=== PATIENT | male | born 1940 | race Caucasian/White ===

== ENCOUNTER 2020-01-20 16:15 | Outpatient (CLI) | payer MEDICARE, SELFPAY ==
[2020-01-20 16:35] LABS: Add Urine Microscopic? YES; Appearance Urine Clear (Clear); Basophils Absolute Auto 0.12 K/mm3 (0.00-0.10); Basophils Percent Auto 1.2 % (0.0-1.0); Bilirubin Urine Negative (Negative); Blood Urine Negative (Negative); Color Urine Amber (Yellow); Eosinophils Absolute Auto 0.48 K/mm3 (0.02-0.50); Glucose Urine UA Negative (Negative); Hematocrit 42.8 % (37.0-46.0); Immature Granulocyte Absolute 0.12 K/mm3 (0.00-0.00); Immature Granulocyte Percent A 1.2 % (0.0-0.0); Ketones Urine Trace (Negative); Leukocyte Esterase Ur Negative (Negative); Lymphocytes Absolute Auto 2.11 K/mm3 (1.10-4.50); Lymphocytes Percent Auto 21.9 % (18.0-42.0); Mean Corpuscular HGB Conc 32.7 g/dL (32.0-36.0); Mean Corpuscular Hemoglobin 29.8 pg (27.0-31.0); Mean Corpuscular Volume 91.1 fL (78.0-102.0); Mean Platelet Volume 9.9 fl (8.7-11.0); Monocytes Absolute Auto 0.96 K/mm3 (0.10-0.90); Neutrophils Absolute Auto 5.8 K/mm3 (1.7-7.2); Neutrophils Percent Auto 60.7 % (50.0-70.0); Nitrate Urine Negative (Negative); Platelet Count Result 252 K/mm3 (150-420); Protein Urine Negative (Negative); Red Cell Distribution Width 14.4 % (11.6-14.4); Specific Grav Ur 1.025 (1.010-1.020); Urobilinogen Urine 0.2 mg/dL (0.2-1.0); White Blood Count 9.6 K/mm3 (4.8-10.8); pH Urine 5.5 (5.0-8.0)
[2020-01-20 16:39] LABS: Bacteria Urine Trace /hpf; RBC Urine None seen /hpf (0-2); Squamous Epithelial Cell Urine Few /hpf (Few); WBC Urine None seen /hpf (0-3)
[2020-01-20 16:53] LABS: Hemoglobin A1C 7.8 % (<5.7)
--- NOTE | 2020-01-20 16:55 | ECG_ITS ---
Measurements Intervals [place] Rate: 59 P: 30 CO: 193 QRS: 46 QRSD: 162 T: 66 QT: 470 QTc: 468 Interpretive Statements SINUS BRADYCARDIA RIGHT BUNDLE BRANCH BLOCK ABNORMAL ECG Electronically Signed On 01-20-2020 18:30:48 CDT by Jaun Jackson D.O.
[2020-01-20 17:15] LABS: Alanine Aminotransferase 53 U/L (16-63); Albumin Level 3.8 g/dL (3.4-5.0); Alkaline Phosphatase 72 U/L (46-116); Anion Gap 9 mmol/L (8-16); Aspartate Amino Transferase 23 U/L (15-37); Bilirubin,Total 0.4 mg/dL (0.00-1.00); Blood Urea Nitrogen 35 mg/dL (7-18); Calcium 9.9 mg/dL (8.5-10.1); Carbon Dioxide 30 mmol/L (21-32); Chloride 101 mmol/L (98-108); Estimated Glomerular Filt Rate 41; Glucose 103 mg/dL (70-99); Osmolality Calculated 298 mOsm/kg (285-295); Potassium 4.6 mmol/L (3.5-5.1); Sodium 140 mmol/L (136-145); Total Protein 7.9 g/dL (6.4-8.2)
== END 2020-01-20 16:16 | disposition home or self-care (01) ==
LOC: CHSCARD 16:18
PROVIDERS: PCP Internal Medicine; Visit Provider Internal Medicine
DX: H54.7 Unspecified visual loss (principal); E11.9 Type 2 diabetes mellitus without complications
CPT/HCPCS: 36415; 80053; 81001; 83036; 85025; 93005

== ENCOUNTER 2020-01-23 14:09 | Outpatient (CLI) | payer MEDICARE, SELFPAY ==
--- NOTE | ~2020-01-23 | US_ITS ---
EXAMINATION: US carotid duplex BI DATE: 01/23/2020 16:35 INDICATION: Bilateral vision loss TECHNIQUE: Grayscale, color Doppler, and pulsed Doppler images of the cervical carotid arteries were obtained. The degree of vessel stenosis is placed in one of the following categories: normal, <50%, 5 0-69%, >=70% but less than near-occlusion, near-occlusion, or total occlusion. Note that percent sten osis relative to normal distal artery lumen diameter is indirectly measured from velocity measurement s as described by Maurice, et al. Radiology 2003; 229:340-346. COMPARISON: None. FINDINGS: Cardiac arrhythmia is present. RIGHT: The right common carotid artery (CCA) peak systolic velocity (PSV) is 67 cm/s. The right internal car otid artery (ICA) PSV is 99 cm/s. The right ICA end-diastolic velocity (EDV) is 35 cm/s. The right IC A/CCA PSV ratio is 1.5. Grayscale and color Doppler images yield an estimate of <50% diameter reducti on from plaque in the ICA. The external carotid artery (ECA) PSV is 102 cm/s. There is antegrade flow in the right vertebral artery. LEFT: The left CCA PSV is 41 cm/s. The left ICA PSV is 96 cm/s. The left ICA EDV is 27 cm/s. The left ICA/C CA PSV ratio is 2.3. Grayscale and color Doppler images yield an estimate of <50% diameter reduction from plaque in the ICA. The ECA PSV is 86 cm/s. There is antegrade flow in the left vertebral artery. IMPRESSION: 1. <50% stenosis in the right internal carotid artery. 2. <50% stenosis in the left internal carotid artery. 3. Cardiac arrhythmia is present. Reviewed, dictated and finalized at location A.
--- NOTE | 2020-01-23 14:15 | ECHO_ITS ---
Patient Info Name: Richie Garcia Age: 79 years : 1940 Gender: Male Ht: 73 in Wt: 250 lbs BSA: 2.45 m2 HR: 63 bpm BP: 158 / 59 mmHg Technical Quality: Poor Exam Date: 01/23/2020 2:31 PM Exam Location: [facility] Patient Status: Outpatient Admit Date: 01/23/2020 Staff Ordering Physician: Morro Caba MD Core Winding Operator: Kimberli Burr RDCS Attending Provider: Morro Caba MD Exam Type: CA echo doppler color flow Study Info Indications I10 - Essential (primary) hypertension Complete two-dimensional, color flow and Doppler transthoracic echocardiogram is performed. Reason for Poor Study: poor echocardiographic windows History/Risk Factors Hypertension: Yes Diabetes Mellitus: Yes Tobacco Use: Former Family History: Coronary Artery Disease, Diabetes Mellitus Frailty Scale (CSHA): 6: Moderately Frail Summary 1. Complete two-dimensional, color flow and Doppler transthoracic echocardiogram is performed. 2. Technically suboptimal study due to poor sonographic images. 3. No 2 chamber apical view obtained. 4. There is severe asymmetric septal increased left ventricular wall thickness at 2.0 cm and posterior wall at 1.0 cm. Consider hypertrophic cardiomyopathy. No LVOT obstruction. 5. Left ventricular chamber dimension is normal. 6. Left ventricular systolic function is normal, estimated at 60-65%. 7. The left ventricular diastolic function is grade I diastolic dysfunction. 8. E/e' 15 is elevated. 9. There is moderate aortic valve sclerosis. 10. There is mild aortic valve regurgitation. 11. The mitral valve has mildly calcified annulus. 12. There is mild mitral valve regurgitation. 13. There is mild tricuspid valve regurgitation. 14. No pulmonary hypertension, estimated pulmonary arterial systolic pressure is 30 mmHg. Recommendations * Continue medical therapy for diabetes. Left Ventricle E/e' 15 is elevated. No 2 chamber apical view obtained. There is severe asymmetric septal increased left ventricular wall thickness at 2.0 cm and posterior wall at 1.0 cm. Consider hypertrophic cardiomyopathy. No LVOT obstruction. Technically suboptimal study due to poor sonographic images. Left ventricular chamber dimension is normal. Left ventricular systolic function is normal, estimated at 60-65%. The left ventricular diastolic function is grade I diastolic dysfunction. Right Ventricle Right ventricular systolic function is normal based on TAPSE 3.5 cm. Right ventricular chamber dimension is not well visualized. Left Atria Left atrial chamber dimension is normal. Right Atria Right atrial chamber dimension is normal. Aortic Valve The aortic valve is trileaflet. There is moderate aortic valve sclerosis. There is no aortic valve stenosis. There is mild aortic valve regurgitation. Pulmonic Valve There is no pulmonic regurgitation. Mitral Valve The mitral valve has mildly calcified annulus. There is no mitral valve stenosis. There is mild mitral valve regurgitation. Tricuspid Valve There is mild tricuspid valve regurgitation. No pulmonary hypertension, estimated pulmonary arterial systolic pressure is 30 mmHg. Pericardium/Pleural There is no pericardial effusion. Inferior Vena Cava Normal inferior vena cava with >50% collapse upon inspiration consistent with normal right atrial pressure, 5 mmHg. Aorta The aortic root size at the sinus of Valsalva is normal. Left Ventricular Outflow Tra
== END 2020-01-23 14:10 | disposition home or self-care (01) ==
PROVIDERS: PCP Internal Medicine; Visit Provider Internal Medicine
DX: H54.3 Unqualified visual loss, both eyes (principal); I10 Essential (primary) hypertension; I65.29 Occlusion and stenosis of unspecified carotid artery
CPT/HCPCS: 93306; 93880

== ENCOUNTER 2020-04-17 15:49 | Outpatient (CLI) | payer MEDICARE, SELFPAY ==
[2020-04-20 16:41] LABS: SARS-CoV-2 RNA PCR Positive
== END 2020-04-17 15:50 | disposition home or self-care (01) ==
LOC: CHSLAB 15:53
PROVIDERS: PCP Internal Medicine; Visit Provider Internal Medicine
DX: U07.1 COVID-19 (principal)
CPT/HCPCS: 87635; C9803; U0003

== ENCOUNTER 2020-09-15 14:47 | Outpatient (CLI) | payer MEDICARE, SELFPAY ==
[2020-09-15 14:59] LABS: Basophils Absolute Auto 0.11 K/mm3 (0.00-0.10); Basophils Percent Auto 1.3 % (0.0-1.0); Eosinophils Absolute Auto 0.56 K/mm3 (0.02-0.50); Eosinophils Percent Auto 6.5 % (1.0-6.0); Hemoglobin 13.4 g/dL (12.4-15.3); Immature Granulocyte Absolute 0.13 K/mm3 (0.00-0.00); Immature Granulocyte Percent A 1.5 % (0.0-0.0); Lymphocytes Absolute Auto 2.08 K/mm3 (1.10-4.50); Lymphocytes Percent Auto 24.2 % (18.0-42.0); Mean Corpuscular HGB Conc 32.7 g/dL (32.0-36.0); Mean Corpuscular Hemoglobin 29.6 pg (27.0-31.0); Mean Corpuscular Volume 90.5 fL (78.0-102.0); Mean Platelet Volume 10.1 fl (8.7-11.0); Monocytes Absolute Auto 0.75 K/mm3 (0.10-0.90); Monocytes Percent Auto 8.7 % (2.0-11.0); Neutrophils Percent Auto 57.8 % (50.0-70.0); Platelet Count Result 236 K/mm3 (150-420); Red Blood Count 4.53 M/mm3 (4.70-6.10); Red Cell Distribution Width 13.8 % (11.6-14.4); White Blood Count 8.6 K/mm3 (4.8-10.8)
[2020-09-15 15:13] LABS: Hemoglobin A1C 9.1 % (<5.7)
[2020-09-15 16:01] LABS: Alanine Aminotransferase 36 U/L (16-63); Albumin Level 3.6 g/dL (3.4-5.0); Alkaline Phosphatase 82 U/L (46-116); Anion Gap 9 mmol/L (8-16); Aspartate Amino Transferase 15 U/L (15-37); Bilirubin,Total 0.4 mg/dL (0.00-1.00); Blood Urea Nitrogen 19 mg/dL (7-18); Calcium 9.7 mg/dL (8.5-10.1); Carbon Dioxide 28 mmol/L (21-32); Chloride 97 mmol/L (98-108); Estimated Glomerular Filt Rate 54; Glucose 301 mg/dL (70-99); Osmolality Calculated 291 mOsm/kg (285-295); Potassium 4.8 mmol/L (3.5-5.1); Sodium 134 mmol/L (136-145); Total Protein 7.5 g/dL (6.4-8.2)
== END 2020-09-15 14:48 | disposition home or self-care (01) ==
LOC: CHSLAB 14:48
PROVIDERS: PCP Internal Medicine; Visit Provider Internal Medicine
DX: E11.9 Type 2 diabetes mellitus without complications (principal); I10 Essential (primary) hypertension
CPT/HCPCS: 36415; 80053; 83036; 85025

== ENCOUNTER 2020-12-08 15:28 | Outpatient (CLI) | payer MEDICARE, SELFPAY ==
[2020-12-08 16:00] LABS: Hemoglobin A1C 9.7 % (<5.7)
[2020-12-08 16:09] LABS: Alanine Aminotransferase 61 U/L (16-63); Albumin Level 3.6 g/dL (3.4-5.0); Alkaline Phosphatase 78 U/L (46-116); Anion Gap 10 mmol/L (8-16); Aspartate Amino Transferase 27 U/L (15-37); Bilirubin,Total 0.3 mg/dL (0.00-1.00); Blood Urea Nitrogen 25 mg/dL (7-18); Calcium 9.4 mg/dL (8.5-10.1); Carbon Dioxide 28 mmol/L (21-32); Chloride 101 mmol/L (98-108); Estimated Glomerular Filt Rate 49; Glucose 192 mg/dL (70-99); Osmolality Calculated 297 mOsm/kg (285-295); Potassium 4.4 mmol/L (3.5-5.1); Sodium 139 mmol/L (136-145); Thyroid Stimulating Hormone 3.41 uIU/mL (0.36-3.74); Total Protein 7.9 g/dL (6.4-8.2)
== END 2020-12-08 15:29 | disposition home or self-care (01) ==
LOC: CHSLAB 15:30
PROVIDERS: PCP Internal Medicine; Visit Provider Internal Medicine
DX: E11.9 Type 2 diabetes mellitus without complications (principal); I10 Essential (primary) hypertension
CPT/HCPCS: 36415; 80053; 83036; 84443

== ENCOUNTER 2021-03-17 15:39 | Outpatient (CLI) | payer MEDICARE, SELFPAY ==
[2021-03-17 15:57] LABS: Basophils Absolute Auto 0.12 K/mm3 (0.00-0.10); Basophils Percent Auto 1.3 % (0.0-1.0); Eosinophils Absolute Auto 0.46 K/mm3 (0.02-0.50); Hemoglobin 14.4 g/dL (12.4-15.3); Immature Granulocyte Absolute 0.07 K/mm3 (0.00-0.00); Immature Granulocyte Percent A 0.8 % (0.0-0.0); Lymphocytes Absolute Auto 2.19 K/mm3 (1.10-4.50); Lymphocytes Percent Auto 23.7 % (18.0-42.0); Mean Corpuscular HGB Conc 31.3 g/dL (32.0-36.0); Mean Corpuscular Hemoglobin 26.8 pg (27.0-31.0); Mean Corpuscular Volume 85.7 fL (78.0-102.0); Mean Platelet Volume 9.6 fl (8.7-11.0); Monocytes Absolute Auto 0.78 K/mm3 (0.10-0.90); Monocytes Percent Auto 8.5 % (2.0-11.0); Neutrophils Absolute Auto 5.6 K/mm3 (1.7-7.2); Neutrophils Percent Auto 60.7 % (50.0-70.0); Platelet Count Result 240 K/mm3 (150-420); Red Blood Count 5.37 M/mm3 (4.70-6.10); Red Cell Distribution Width 16.4 % (11.6-14.4); White Blood Count 9.2 K/mm3 (4.8-10.8)
[2021-03-17 16:20] LABS: Alanine Aminotransferase 115 U/L (16-63); Albumin Level 3.6 g/dL (3.4-5.0); Alkaline Phosphatase 89 U/L (46-116); Anion Gap 6 mmol/L (8-16); Aspartate Amino Transferase 57 U/L (15-37); Bilirubin,Total 0.3 mg/dL (0.00-1.00); Blood Urea Nitrogen 24 mg/dL (7-18); Calcium 9.4 mg/dL (8.5-10.1); Carbon Dioxide 33 mmol/L (21-32); Chloride 101 mmol/L (98-108); Estimated Glomerular Filt Rate 53; Glucose 134 mg/dL (70-99); Osmolality Calculated 296 mOsm/kg (285-295); Potassium 4.7 mmol/L (3.5-5.1); Sodium 140 mmol/L (136-145)
[2021-03-17 16:49] LABS: Hemoglobin A1C 7.7 % (<5.7)
== END 2021-03-17 15:40 | disposition home or self-care (01) ==
LOC: CHSLAB 15:44
PROVIDERS: PCP Internal Medicine; Visit Provider Internal Medicine
DX: N18.30 Chronic kidney disease, stage 3 unspecified (principal); E11.9 Type 2 diabetes mellitus without complications
CPT/HCPCS: 36415; 80053; 83036; 85025

== ENCOUNTER 2021-08-30 15:48 | Outpatient (CLI) | payer MEDICARE, SELFPAY ==
[2021-08-30 16:20] LABS: Basophils Percent Auto 1.3 % (0.0-1.0); Eosinophils Absolute Auto 0.37 K/mm3 (0.02-0.50); Eosinophils Percent Auto 4.6 % (1.0-6.0); Hematocrit 47.2 % (37.0-46.0); Hemoglobin 15.6 g/dL (12.4-15.3); Immature Granulocyte Absolute 0.07 K/mm3 (0.00-0.00); Immature Granulocyte Percent A 0.9 % (0.0-0.0); Lymphocytes Absolute Auto 1.88 K/mm3 (1.10-4.50); Lymphocytes Percent Auto 23.5 % (18.0-42.0); Mean Corpuscular HGB Conc 33.1 g/dL (32.0-36.0); Mean Corpuscular Hemoglobin 29.6 pg (27.0-31.0); Mean Corpuscular Volume 89.6 fL (78.0-102.0); Mean Platelet Volume 10.2 fl (8.7-11.0); Monocytes Absolute Auto 0.71 K/mm3 (0.10-0.90); Monocytes Percent Auto 8.9 % (2.0-11.0); Neutrophils Absolute Auto 4.9 K/mm3 (1.7-7.2); Neutrophils Percent Auto 60.8 % (50.0-70.0); Platelet Count Result 212 K/mm3 (150-420); Red Blood Count 5.27 M/mm3 (4.70-6.10); Red Cell Distribution Width 13.5 % (11.6-14.4)
[2021-08-30 16:21] LABS: Add Urine Microscopic? NO; Appearance Urine Clear (Clear); Bilirubin Urine Negative (Negative); Blood Urine Negative (Negative); Color Urine Light Yellow (Yellow); Glucose Urine UA Negative (Negative); Ketones Urine Negative (Negative); Leukocyte Esterase Ur Negative (Negative); Nitrate Urine Negative (Negative); Protein Urine Negative (Negative); Specific Grav Ur 1.015 (1.010-1.020); Urobilinogen Urine 0.2 mg/dL (0.2-1.0); pH Urine 6.5 (5.0-8.0)
[2021-08-30 16:35] LABS: Hemoglobin A1C 7.5 % (<5.7)
[2021-08-30 16:36] LABS: Alanine Aminotransferase 24 U/L (16-63); Albumin Level 3.8 g/dL (3.4-5.0); Alkaline Phosphatase 68 U/L (46-116); Anion Gap 8 mmol/L (8-16); Aspartate Amino Transferase 17 U/L (15-37); Bilirubin,Total 0.4 mg/dL (0.00-1.00); Blood Urea Nitrogen 22 mg/dL (7-18); Calcium 9.4 mg/dL (8.5-10.1); Carbon Dioxide 28 mmol/L (21-32); Chloride 100 mmol/L (98-108); Cholesterol 147 mg/dL (0-200); Estimated Glomerular Filt Rate > 60; Glucose 167 mg/dL (70-99); HDL Direct 36 mg/dL (40-60); LDL Cholesterol Calculated 70 mg/dL (<130); Osmolality Calculated 289 mOsm/kg (285-295); Potassium 4.4 mmol/L (3.5-5.1); Sodium 136 mmol/L (136-145); Total Protein 7.3 g/dL (6.4-8.2); Triglycerides 203 mg/dL (0-150)
== END 2021-08-30 15:49 | disposition home or self-care (01) ==
LOC: CHSLAB 15:51
PROVIDERS: PCP Internal Medicine; Visit Provider Internal Medicine
DX: E11.9 Type 2 diabetes mellitus without complications (principal); I10 Essential (primary) hypertension
CPT/HCPCS: 36415; 80053; 80061; 81003; 83036; 85025

== ENCOUNTER 2021-10-12 10:47 | Outpatient (CLI) | payer MEDICARE, SELFPAY ==
[2021-10-12 11:06] LABS: Basophils Absolute Auto 0.11 K/mm3 (0.00-0.10); Basophils Percent Auto 1.3 % (0.0-1.0); Eosinophils Absolute Auto 0.31 K/mm3 (0.02-0.50); Eosinophils Percent Auto 3.6 % (1.0-6.0); Hematocrit 48.7 % (37.0-46.0); Immature Granulocyte Absolute 0.07 K/mm3 (0.00-0.00); Immature Granulocyte Percent A 0.8 % (0.0-0.0); Lymphocytes Absolute Auto 2.02 K/mm3 (1.10-4.50); Lymphocytes Percent Auto 23.3 % (18.0-42.0); Mean Corpuscular HGB Conc 32.9 g/dL (32.0-36.0); Mean Corpuscular Hemoglobin 29.5 pg (27.0-31.0); Mean Corpuscular Volume 89.7 fL (78.0-102.0); Mean Platelet Volume 10.1 fl (8.7-11.0); Monocytes Absolute Auto 0.61 K/mm3 (0.10-0.90); Neutrophils Absolute Auto 5.5 K/mm3 (1.7-7.2); Platelet Count Result 215 K/mm3 (150-420); Red Blood Count 5.43 M/mm3 (4.70-6.10); Red Cell Distribution Width 13.6 % (11.6-14.4); White Blood Count 8.7 K/mm3 (4.8-10.8)
[2021-10-12 11:07] LABS: Add Urine Microscopic? NO; Appearance Urine Clear (Clear); Bilirubin Urine Negative (Negative); Blood Urine Negative (Negative); Color Urine Light Yellow (Yellow); Glucose Urine UA Negative (Negative); Ketones Urine Negative (Negative); Leukocyte Esterase Ur Negative LEU/UL (Negative); Nitrate Urine Negative (Negative); Protein Urine Negative (Negative); Specific Grav Ur 1.015 (1.010-1.020); Urobilinogen Urine 0.2 mg/dL (0.2-1.0); pH Urine 6.5 (5.0-8.0)
--- NOTE | 2021-10-12 11:20 | ECG_ITS ---
Measurements Intervals [place] Rate: 51 P: 60 NM: 239 QRS: 101 QRSD: 174 T: 56 QT: 521 QTc: 483 Interpretive Statements SINUS BRADYCARDIA WITH FIRST DEGREE AV BLOCK VENTRICULAR PREMATURE COMPLEX RIGHT AXIS DEVIATION RIGHT BUNDLE BRANCH BLOCK ABNORMAL ECG Electronically Signed On 10-12-2021 11:23:40 CDT by Jaun Jackson D.O.
[2021-10-12 11:32] LABS: Alanine Aminotransferase 11 U/L (16-63); Albumin Level 3.6 g/dL (3.4-5.0); Alkaline Phosphatase 68 U/L (46-116); Anion Gap 8 mmol/L (8-16); Aspartate Amino Transferase 16 U/L (15-37); Bilirubin,Total 0.5 mg/dL (0.00-1.00); Blood Urea Nitrogen 18 mg/dL (7-18); Calcium 9.1 mg/dL (8.5-10.1); Carbon Dioxide 26 mmol/L (21-32); Chloride 101 mmol/L (98-108); Creatine Kinase 54 U/L (39-308); Estimated Glomerular Filt Rate 58; Glucose 191 mg/dL (70-99); Magnesium 2.1 mg/dL (1.8-2.4); NT Pro B Type Natriuretic Pept 411 pg/mL (0-450); Osmolality Calculated 286 mOsm/kg (285-295); Potassium 4.1 mmol/L (3.5-5.1); Sodium 135 mmol/L (136-145); Total Protein 7.9 g/dL (6.4-8.2); Troponin I 14.7 ng/L (0.00-60.4)
== END 2021-10-12 10:48 | disposition home or self-care (01) ==
LOC: CHSLAB 10:52
PROVIDERS: PCP Internal Medicine; Visit Provider Internal Medicine
DX: R55 Syncope and collapse (principal); R06.00 Dyspnea, unspecified
CPT/HCPCS: 36415; 80053; 81003; 82550; 82553; 83735; 83880; 84484; 85025; 93005

== ENCOUNTER 2022-01-26 08:02 | Outpatient (CLI) | payer MEDICARE, SELFPAY ==
--- NOTE | 2022-02-25 10:04 | WPDSLEEPSTUD ---
Sleep Study Date of Study: 01/26/22 Ordering Provider: Jaun Jackson DO Interpreting Physician: Natasha Nation MD Sleep Study Type: Polysomnogram Height: 1.8 m Weight: 106.594 kg Body Mass Index: 32.8 Neck Circumference (inches): 16.5 [place]: 6 Reason for Sleep Study Difficulty falling asleep and staying asleep Sleep History Richie Garcia is an 81-year-old man referred for a sleep study for poor quality sleep. He has hypertensive cardiomyopathy, hypertension, diabetes and dyslipidemia. He had COVID in March 2020. He rarely awakens from sleep feeling short of breath. He does not awaken with heartburn symptoms, no belching or coughing. He does not snore and other people do not tell him that he snores. He does not gasp at night her feel short of breath at night. He does not sweat excessively at night. He occasionally notices his heart beating irregularly night. He frequently falls asleep in the day, rarely falls asleep involuntarily never falls asleep while driving. He does not have loss of muscle tone was strong emotion. He does not have daytime difficulties due to excessive sleepiness. He does not feel paralyzed when waking or falling asleep. He does not have vivid dreamlike scenes upon awakening or falling asleep. He does not feel afraid to go to sleep. He rarely has nightmares. He rarely remembers his dreams. He rarely has racing thoughts. She rarely feels sad, depressed or anxious. He rarely has muscular tension. He does not notice parts his body jerking. He occasionally kicks at night, occasionally has crawling and aching feelings in his legs and leg pain at night. He does not have morning jaw pain. He does not grind his teeth during sleep. He rarely is bothered by pain during the day, he rarely is awakened by pain at night he rarely wakes up feeling stiff in the morning. He rarely has sore achy muscles on waking occasionally wakes up with pain in the neck and spine. He has fatigue, dizziness and memory problems. He has had syncopal episodes.. Normal bedtime is 11:00 p.m. taking 2 hours to fall asleep typically waking 3 times at night to urinate, she taking 1/2 hour to return to sleep. Wakes in the morning at 7:00 a.m.. She is weekend schedule is the same. He estimates getting 5 hours of sleep at night. he takes naps in the afternoon or evening. A short nap is refreshing. He feels drowsy for an hour after waking. He is tired throughout the day. Habits: Tobacco 2 packs per day. Caffeine 2 cups per day. No alcohol or recreational drugs. PENDING SALE TO [facility] Family History Family History Mother Diabetes mellitus Father Family history of emphysema Other Family history of arthritis Hypertension Social History Social History Smoking status: Never smoker Smoking end date: 05/29/79 Alcohol intake: current Medications Home Medications Medication Instructions Recorded Confirmed Type amlodipine 10 mg tablet 10 mg PO DAILY 07/27/20 01/28/22 History ascorbic acid (vitamin C) 1,000 mg 1 g PO DAILY 07/27/20 01/28/22 History tablet cholecalciferol (vitamin D3) 10 10 mcg PO DAILY 07/27/20 01/28/22 History mcg (400 unit) capsule glimepiride 4 mg tablet 4 mg PO TID 07/27/20 01/28/22 History irbesartan 300 mg tablet 150 mg PO DAILY 07/27/20 01/28/22 History cxiiuixb-xyg-nodrc acid 300 1 tablet PO DAILY 07/27/20 01/28/22 History mcg-lycopene 600 mcg-lutein 300 mcg tablet (Centrum Silver Ultra Men's) potassium 99 mg tablet mg PO DAILY 07/27/20 01/28/22 History spironolactone 25 1 tablet PO DAILY 01/13/22 01/28/22 History mg-hydrochlorothiazide 25 mg tablet torsemide 10 mg tablet 10 mg PO QAM 01/13/22 01/28/22 History Sleep Procedure This test was performed using the [employer] multiple channel system including EOG, EEG, submental EMG, EKG, nasal and oral airflow using
[2022-02-25 16:14] VITALS: BMI 32.8
--- NOTE | 2022-05-05 11:25 | SLEEP ---
pt returned machine.
== END 2022-01-27 06:10 | disposition home or self-care (01) ==
PROVIDERS: PCP Internal Medicine; Visit Provider Internal Medicine Cardiovascular Disease
DX: G47.30 Sleep apnea, unspecified (principal); G47.33 Obstructive sleep apnea (adult) (pediatric)
CPT/HCPCS: 95810

== ENCOUNTER 2022-09-12 18:12 | Inpatient (IN) | payer MEDICARE, SELFPAY ==
[2022-09-12] VITALS (21 sets, daily range): BP systolic 87–142; BP diastolic 58–80; PULSE 52–89; RESP 13–27; TEMP 35.8; O2SAT 93–100
--- NOTE | ~2022-09-12 | XR_ITS ---
XR chest ET placement 09/12/2022 18:53 Indication: Cardiac arrest. Endotracheal tube placement. Procedure: AP portable chest Comparison: No prior studies for comparison. Findings: Endotracheal tube directed into the right mainstem bronchus. Recommend retraction 5-6 cm. N G tube in the stomach. Cardiomegaly with mild interstitial edema. Impression: 1: Endotracheal tube tip in the right mainstem bronchus. Recommend retraction 5-6 cm. 2: Cardiomegaly with interstitial edema. Reviewed, dictated and finalized at location A. Impression: 1: Endotracheal tube tip in the right mainstem bronchus. Recommend retraction 5 -6 cm. 2: Cardiomegaly with interstitial edema.
--- NOTE | ~2022-09-12 | CT_ITS ---
Non-contrast Head CT History: Cardiac arrest Technique: Axial non-contrast imaging of the brain was performed. Dose reduction technique was used on this scan by utilizing automated exposure control and iterative reconstruction technique. The dose -length product (DLP) was 605.33 mGy-cm. Findings: There is no evidence of intracranial hemorrhage, mass lesion, or acute infarct. Brain par enchyma appears normal. The ventricles and subarachnoid spaces are mildly dilated. The calvarium ap pears normal. The visualized paranasal sinuses and mastoid air cells are clear. Impression: No acute abnormality seen. Mild generalized atrophy. Reviewed, dictated and finalized at location . Impression: No acute abnormality seen. Mild generalized atrophy.
--- NOTE | ~2022-09-12 | XR_ITS ---
Portable chest x-ray Comparison: 09/12/2022 Clinical History: Cardiac arrest, tube placement Findings: Endotracheal tube and NG tube are in satisfactory positions. Small left pleural effusion i s present. There is probable mild pulmonary edema pattern and mild left basilar atelectasis. Cardiom ediastinal silhouette is stable. Bones and soft tissues are unremarkable. Impression: Mild pulmonary edema with small left pleural effusion and left basilar atelectasis. Support tubes, as above. Reviewed, dictated and finalized at location . Impression: Mild pulmonary edema with small left pleural effusion and left basilar atelecta sis. Support tubes, as above.
--- NOTE | ~2022-09-12 | XR_ITS ---
XR abdomen NG/feed tube insert INDICATION: Evaluate NG tube position. TECHNIQUE: Limited KUB perform for evaluating NG tube . COMPARISON: No prior studies for comparison. FINDINGS: NG tube tip in the stomach. Visualized bowel gas pattern is unremarkable.There are cholecy stectomy clips. IMPRESSION: 1: NG tube tip in the stomach. Reviewed, dictated and finalized at location A.
--- NOTE | ~2022-09-12 | XR_ITS ---
XR chest ET placement 09/12/2022 20:44 Indication: Respiratory distress. Evaluate endotracheal tube placement. Procedure: AP portable chest Comparison: 09/12/2022 Findings: Endotracheal tube tip approximately 4 cm above the letty. NG tube in the stomach. Unchange d extensive bilateral airspace disease. No pneumothorax. No acute osseous abnormality. Impression: 1: Unchanged diffuse bilateral airspace disease which may represent edema, pneumonia and/or atelectas is. Reviewed, dictated and finalized at location A. Impression: 1: Unchanged diffuse bilateral airspace disease which may represent edema, pneu monia and/or atelectasis.
--- NOTE | ~2022-09-12 | CT_ITS ---
EXAMINATION: CTA chest PE protocol DATE: 09/12/2022 20:26 CDT INDICATION: Dyspnea. Cardiac arrest. TECHNIQUE: Computed tomographic angiography (CTA) of the chest was performed with 100 mL Omnipaque-35 0 intravenous contrast. The dose-length product was 969.80 mGy-cm. Maximum intensity projection 3D-re constructions of the aorta and other arteries were constructed by the technologist on a separate work station. Automated exposure control and iterative reconstruction technique were employed. COMPARISON: Chest x-ray dated 09/12/2022. FINDINGS: Study is technically adequate without evidence for pulmonary embolism. Mildly prominent med iastinal lymph nodes, likely reactive. There is atherosclerosis of the aorta and coronary arteries. C ardiomegaly. NG tube in the stomach. Endotracheal tube in the trachea. There are areas of bilateral g roundglass opacification and dependent consolidation. No endobronchial lesions. No pneumothorax. Vanesa re thoracic spondylosis. IMPRESSION: 1. No evidence for pulmonary embolism. 2: Extensive infiltrates with groundglass opacification and consolidation bilaterally. Differential diagnosis includes edema, pneumonia and/or atelectasis. Reviewed, dictated and finalized at location A. IMPRESSION: 1. No evidence for pulmonary embolism. 2: Extensive infiltrates with groundglass opacification and consolidation bila terally. Differential diagnosis includes edema, pneumonia and/or atelectasis.
[2022-09-12] MEDS: MIDAZOLAM HCL (*CRX) 2 MG/2 ML VIAL 4 MG IV PUSH (18:17)
[2022-09-12] MEDS: SUCCINYLCHOLINE CHLORIDE 20 MG/ML 10 ML VIAL 100 MG IV PUSH (18:18)
--- NOTE | 2022-09-12 18:26 | ED.CPR ---
HPI - CPR General Chief Complaint: Cardiac Arrest/CPR Stated Complaint: cardiac arrest Time Seen by Provider: 09/12/22 18:26 Source: patient Mode of arrival: EMS Limitations: clinical condition History of Present Illness HPI narrative: Patient is 82 years old white male brought to the emergency room by ambulance with cardiopulmonary arrest. Patient was walking at the backyard, dropped to the ground, witnessed by his who called the ambulance immediately, 2 minutes later CPR was started by the police, EMT started CPR, they monitor showed V-fib, patient got shocked at least 7 times since the beginning of the CPR until now, epinephrine, amiodarone was started. On arrival to the ED CPR was in progress, Vinay, within 1 minute monitor showing possible A-fib with normal ventricular response. Compressions stopped, LMA pulled out, patient was able to answer his name, his age, denies any shortness of breath or chest pain or focal neurodeficit and currently feeling tired all over. His oxygenation was in the 80s. Orotracheal intubation started with success in 1 attempt. Related Data Home Medications Medication Instructions Recorded Confirmed amlodipine 10 mg tablet 10 mg PO DAILY 07/27/20 04/11/22 ascorbic acid (vitamin C) 1,000 mg 1 g PO DAILY 07/27/20 04/11/22 tablet cholecalciferol (vitamin D3) 10 10 mcg PO DAILY 07/27/20 04/11/22 mcg (400 unit) capsule glimepiride 4 mg tablet 4 mg PO BID 07/27/20 04/11/22 tiiqhted-mos-qpmxl acid 300 1 tablet PO DAILY 07/27/20 04/11/22 mcg-lycopene 600 mcg-lutein 300 mcg tablet (Centrum Silver Ultra Men's) potassium 99 mg tablet 99 mg PO DAILY 07/27/20 04/11/22 spironolactone 25 1 tablet PO DAILY 01/13/22 04/11/22 mg-hydrochlorothiazide 25 mg tablet torsemide 10 mg tablet 10 mg PO QAM 01/13/22 09/12/22 Allergies Allergy/AdvReac Type Severity Reaction Status Date / Time aspirin Allergy Intermediate Unknown Verified 04/11/22 15:54 ANESTHESIA GAS AdvReac Severe SOB Uncoded 01/28/22 11:36 Review of Systems Review of Systems: ROS unobtainable: Yes unobtainable due to endotracheal tube PMFSH Family History Family History Mother Diabetes mellitus Father Family history of emphysema Other Family history of arthritis Hypertension Social History Social History Smoking packs per day: 1 Smoking cigarettes per day: 20.0 Years smoked: 20 Smoking pack-years: 20.00 Smoking status: Former smoker Tobacco type: cigarettes Smoking end date: 05/29/79 Alcohol intake: former Substance use: never Substance use type: does not use Living arrangements: with family Spiritual care concerns: No Exam Narrative: General appearance: Well-developed, well-nourished Skin: Pale skin Head: Normocephalic, nontraumatic Eyes: Clear conjunctiva ENT: Oropharynx normal, ears normal, nose normal Neck: Supple, nontender Chest and respiratory: Slight diminution of air entry bilaterally, Heart: Irregular irregularity Abdomen: Soft, nontender, no organomegaly, quiet bowel sounds Vascular: Normal peripheral pulses, normal capillary refill. Neurologic: Alert and oriented ?3, Course Reevaluation(s) Reevaluation #1: Patient's sister, daughter, came to the emergency room 1 hour later and are telling me that patient is DNR, and told everybody that he is probably going to during sleep and does not want to be intubated. Patient had history of bradycardia, heart rate down to the 30, declined pacemaker placement. The family is telling me that patient have trouble moving, chair bound most of the
--- NOTE | 2022-09-12 18:27 | ECG_ITS ---
Measurements Intervals [place] Rate: 88 P: [place]: 0 QRS: 235 QRSD: 154 T: 52 QT: 319 QTc: 387 Interpretive Statements ATRIAL FIBRILLATION WITH ABERRANT CONDUCTION OR VENTRICULAR PREMATURE COMPLEXES RIGHT BUNDLE BRANCH BLOCK [120+ ms QRS DURATION, UPRIGHT V1, 40+ ms S IN I/aVL/V4/V5/V6] LEFT POSTERIOR FASCICULAR BLOCK [QRS AXIS > 109, INFERIOR Q] POSSIBLE ANTERIOR MYOCARDIAL INFARCTION , OF INDETERMINATE AGE [30 ms Q WAVE IN V3/V4, OR R < 0.2 mV IN V4] ST DEPRESSION, CONSIDER SUBENDOCARDIAL INJURY [0.1+ mV ST DEPRESSION] COMPARED TO ECG 10/12/2021 11:20:05 ATRIAL FIBRILLATION NOW PRESENT Electronically Signed On 09-13-2022 17:38:03 CDT by Rock Denny M.D.
[2022-09-12 18:41] LABS: Hematocrit 44.6 % (42.0-52.0); Hemoglobin 13.6 g/dL (14.0-18.0); Mean Corpuscular HGB Conc 30.5 g/dl (32-36); Mean Corpuscular Volume 91.8 fl (80-100); Mean Platelet Volume 10.6 fl (7.4-10.4); Platelet Count Result 334 k/mm3 (150-375); Red Blood Count 4.86 M/mm3 (4.6-6.20); Red Cell Distribution Width 14.2 % (11.5-14.5); White Blood Count 29.8 K/mm3 (4.5-10.0)
[2022-09-12] MEDS: PROPOFOL IV EMULSION 100 ML 3.41 MG IV CONT (18:45)
[2022-09-12 18:55] LABS: INR 1.2; Prothrombin Time 14.6 Seconds (11.1-14.7)
[2022-09-12 18:56] LABS: Partial Thromboplastin Time 31.6 SECONDS (22.3-36.8)
[2022-09-12 19:05] LABS: Alanine Aminotransferase 149 U/L (6-50); Albumin Level 3.9 g/dL (3.5-5.1); Alkaline Phosphatase 99 U/L (38-126); Anion Gap 18 mmol/L (8-16); Aspartate Amino Transferase 227 U/L (17-59); Bilirubin,Total 0.6 mg/dL (0.2-1.3); Blood Urea Nitrogen 14 mg/dL (9-20); Calcium 8.2 mg/dL (8.4-10.2); Carbon Dioxide 24 mmol/L (22-30); Chloride 96 mmol/L (98-107); Estimated Glomerular Filt Rate > 60; Glucose 387 mg/dL (65-110); Potassium 3.4 mmol/L (3.4-5.0); Sodium 138 mmol/L (137-145); Triglycerides 317 mg/dL (<150)
[2022-09-12 19:10] LABS: NT Pro B Type Natriuretic Pept 509 pg/mL (19.9-100)
--- NOTE | 2022-09-12 19:16 | PC.NURSE ---
1810 pt arrives to ED via [facility] for a witnessed cardiac arrest. CPR with multiple shocked given SENIOR PRODUCER. MARISELA device performing compressions upon arrival. pt has IGel airway in place. pt making purposful movements. MARISELA device paused, pulses present. 181 IGel tube pulled, pt answering questions and following commands. 1820 ET tube placed, 7.5 tube, positive color change, bilateral breath sounds noted. 25 at the lip line.
--- NOTE | 2022-09-12 19:21 | PC.NURSE ---
RT at bedside to adjust depth of ET tube, 20 at the lip.
[2022-09-12] MEDS: MIDAZOLAM HCL (*CRX) 2 MG/2 ML VIAL (19:28)
[2022-09-12 19:30] LABS: Band Neutrophils Percent 3 % (0-6); Eosinophils Absolute Manual 0.29 K/mm3 (0.02-0.5); Eosinophils Percent Manual 1 % (0-4); Lymphocytes Absolute Manual 16.39 K/mm3 (1.1-4.5); Monocytes Absolute Manual 0.89 K/mm3 (0.1-0.90); Monocytes Percent Manual 3 % (3-9); Neutrophils Absolute Manual 12.21 K/mm3 (1.3-6.7); Neutrophils Percent Manual 38 % (46-73); Platelet Estimate Adequate (Adequate); Schistocytes None Seen (NORMAL); Total Cells Counted 100
[2022-09-12 19:31] LABS: Hypochromasia 1+ (NORMAL)
[2022-09-12] MEDS: AMIODARONE 360 MG/D5W 200 ML 360 MG/200 ML BAG 33.33 MG IV CONT (19:45)
[2022-09-12] MEDS: MIDAZOLAM 100MG/NS 100ML(*CRX) 100 MG/100 ML BAG IV CONT (19:50)
[2022-09-12] MEDS: FENTANYL 2,500MCG/NS250ML(*CRX 2,500 MCG/250 ML BAG IV CONT (19:51)
--- NOTE | 2022-09-12 20:00 | PC.NURSE ---
Propofol drip stopped at 194 due to hypotension. Sedation orders changed to Fentanyl and Versed infusions.
[2022-09-12] MEDS: INSULIN HUMAN REGULAR (*BKC) 100 UNITS/ML 11 UNITS IV PUSH (20:05)
[2022-09-12] MEDS: MIDAZOLAM HCL (*CRX) 2 MG/2 ML VIAL 4 MG (20:32)
--- NOTE | 2022-09-12 20:58 | PC.NURSE ---
2035 ET tube advanced to 23 at the lip line.
--- NOTE | 2022-09-12 21:46 | PM.IMHP ---
H&P: HPI History of Present Illness Date/Time: 09/12/22 21:46 Chief Complaint: Cardiac arrest-CPR Narrative: This is an 82-year-old male patient who has hypertensive cardiomyopathy, hypertension, diabetes and dyslipidemia. He has sleep obstructive sleep apnea as well. (He also has a known history of atrial tachycardia. He also has a 37 episodes of second-degree AV block and type 1 and type 2 episodes. This is according to his cardiac event monitor on 02/07/2022.) Today the patient was brought into the emergency room via ambulance of cardiopulmonary arrest. The patient was walking in his backyard when he dropped to the ground. The witnesses called his who called the ambulance immediately. 2 minutes later CPR was started by the police and when EMT arrived they connected the patient to the monitor and he was shown to be in VFib. The patient was shocked at least 7 times since the beginning of the CPR. The patient was given epinephrine and amiodarone was started. The patient came to the emergency room CPR was in progress with Vinay. Within 1 minute of her arriving to the emergency room, the patient was able to answer questions. His EKG was showing AFib with a normal ventricular response. His compressions were stopped than LMA was pulled out. The patient was able to answer to his name and age. The patient was denying any shortness of breath or chest pain. He had no focal neurological symptoms. However his oxygen level was in the 80s. Patient was intubated per ED provider after 1 successful attempt. The patient was started on a Versed drip, amiodarone drip, and subcu Lovenox was given as well. Chest x-ray was read as unchanged diffuse bilateral airspace disease which may represent edema, pneumonia and/or atelectasis. Chest CTA was read as1. No evidence for pulmonary embolism. 2:? Extensive infiltrates with groundglass opacification and consolidation bilaterally. Differential diagnosis includes edema, pneumonia and/or atelectasis. His white count is 29.8. Glucose 387. AST is 227 and ALT is 149. Troponin is 0.070. BNP is 509. Urine 11-20 rbc's 51-100 wbc's and 3+ bacteria.. Patient was started on doxycycline and Zosyn. Promotions Associate has been consulted. The patient is being admitted to ICU inpatient on the date of service of 09/12/2022. Review of Systems Review of Systems: All systems reviewed & are unremarkable except as noted in HPI and below Constitutional: Constitutional: Reports as per HPI and Reports no additional constitutional complaints Eyes: Eyes: Reports as per HPI and Reports no additional eye complaints ENT: Reports system reviewed and no additional complaints, except as documented and Reports Normal hearing present Cardiovascular: Cardiovascular: Reports no additional cardiovascular complaints Respiratory: Respiratory: Reports no additional respiratory complaints and Reports no additional respiratory complaints Gastrointestinal: Gastrointestinal: Reports as per HPI and Reports no additional gastrointestinal complaints Musculoskeletal: Musculoskeletal: Reports no additional musculoskeletal complaints Integumentary/Breasts: Skin/Breast: Reports system reviewed and no additional complaints, except as docu and Reports as per HPI Neurologic: Reports system reviewed and no additional complaints, except as documented, Reports as per HPI and Reports Normal hearing present Psychiatric: Psychiatric: Reports no additional psychiatric complaints and Reports as per HPI Endocrine: Endocrine: Reports no additional endocrine complaints Hematologic/Lymphatic: Hematologic/Lymphatic: Reports no additional hematologic/lymphatic complaints Allergic/Immunologic: Allergic/Immunologic: Reports no additional allergic/immunologic complaints [facility] Past Medical History Medical History (Updated 09/12/22 @ 22:02 by Melissa Niño NP) Congestive heart failure Grade 1 diastolic, EF is 60-65% DM2 (diabetes mellitus, type 2) History
[2022-09-12 21:49] LABS: Appearance Urine Turbid (Clear); Bacteria Urine 3+ /hpf; Bilirubin Urine Negative (Negative); Blood Urine 2+ (Negative); Color Urine Yellow (Yellow); Glucose Urine UA 2+ mg/dL (Negative); Hyaline Casts Urine Present /lpf; Ketones Urine Negative (Negative); Leukocyte Esterase Ur Negative LEU/UL (Negative); Nitrate Urine Negative (Negative); Non Pathogenic Casts >20; Protein Urine 3+ mg/dL (Negative); Specific Grav Ur 1.026 (1.001-1.035); Squamous Epithelial Cell Urine Few /hpf (Few); WBC Urine 51-100 /hpf; pH Urine 5.5 (5.0-9.0)
[2022-09-12 21:50] LABS: Add Urine Microscopic? YES
[2022-09-12] MEDS: DOXYCYCLINE 100 MG/NS 100 ML 100 MG/100 ML BAG IVPB (22:28)
[2022-09-12] MEDS: PIPERACILLIN/TAZOBACTAM SOD 4.5 GM in SODIUM CHLORIDE 0.9% IV 100 ML 200 ML IVPB (23:38)
[2022-09-12] MEDS: INSULIN ASPART (*BKC) 100 UNITS/ML SUB-Q (23:43)
[2022-09-12 23:58] LABS: Glucose Point of Care 341 mg/dl (65-105)
[2022-09-13] VITALS (43 sets, daily range): BP systolic 100–154; BP diastolic 56–84; PULSE 49–74; RESP 14–19; TEMP 36.2–36.9; O2SAT 94–100; BMI 35.5; BMI 35.4
--- NOTE | 2022-09-13 | ECHO_ITS ---
Patient Info Name: Richie Garcia Age: 82 years : 1940 Gender: Male Ht: 70 in Wt: 250 lbs BSA: 2.41 m2 HR: 58 bpm BP: 110 / 61 mmHg Technical Quality: Fair Exam Date: 09/13/2022 8:55 AM Exam Location: [facility] Pulmonary Patient Status: Inpatient Admit Date: 09/12/2022 Staff Ordering Physician: Melissa Niño NP Environmental Geologist: Deng Cross RDCS, RT Attending Provider: Drew Callejas MD Referring Physician: Sal[place] LOZA; Exam Type: CA echo dop color flow w con Study Info Indications I46.2 - Cardiac arrest due to underlying cardiac condition I50.9 - Heart failure, unspecified Complete two-dimensional, color flow and Doppler transthoracic echocardiogram is performed with contrast to opacify the left ventricle and to improve the deliniation of the left ventricle endocardial borders. History/Risk Factors Hypertension: Yes Diabetes Mellitus: Yes Tobacco Use: Former Family History: Coronary Artery Disease, Diabetes Mellitus Frailty Scale (CSHA): 6: Moderately Frail Summary 1. Definity contrast administered improved wall motion interpretation. 2. Left ventricular chamber dimension is mildly enlarged. 3. There is moderate concentric increased left ventricular wall thickness. 4. Left ventricular systolic function is moderately globally reduced, estimated at 35-40%. 5. The left ventricular diastolic function is abnormal. 6. E/e' 14 is mildly elevated. 7. Right ventricular systolic function is reduced based on abnormal TAPSE 1.6 cm. 8. Left atrial chamber dimension is mildly enlarged. 9. There is moderate aortic valve sclerosis. 10. There is mild aortic valve stenosis with a peak velocity of 189.50 cm/s, mean gradient of 8 mmHg, and aortic valve area of 1.77 cm2. 11. There is trace aortic valve regurgitation. 12. The mitral valve has mildly calcified leaflets and moderately calcified annulus. 13. No pulmonary hypertension, estimated pulmonary arterial systolic pressure is 33 mmHg. 14. The aortic root size at the sinus of Valsalva is borderline dilated at 4.1 cm. 15. Dilated inferior vena cava with <50% collapse upon inspiration consistent with significantly elevated right atrial pressure, 15 mmHg. Recommendations * Continue medical therapy for diabetes. Left Ventricle E/e' 14 is mildly elevated. Left ventricular systolic function is moderately globally reduced, estimated at 35-40%. Definity contrast administered improved wall motion interpretation. Left ventricular chamber dimension is mildly enlarged. There is moderate concentric increased left ventricular wall thickness. The left ventricular diastolic function is abnormal. Right Ventricle Right ventricular systolic function is reduced based on abnormal TAPSE 1.6 cm. Right ventricular chamber dimension is not well visualized. Left Atria Left atrial chamber dimension is mildly enlarged. Right Atria Right atrial chamber dimension is normal. Aortic Valve The aortic valve is trileaflet. There is moderate aortic valve sclerosis. There is mild aortic valve stenosis with a peak velocity of 189.50 cm/s, mean gradient of 8 mmHg, and aortic valve area of 1.77 cm2. There is trace aortic valve regurgitation. Pulmonic Valve There is no pulmonic regurgitation. Mitral Valve The mitral valve has mildly calcified leaflets and moderately calcified annulus. There is no mitral valve stenosis. There is no mitral valve regurgitation. Tricuspid Valve There is no tricuspid va
[2022-09-13] MEDS: LEVALBUTEROL NEB 1.25 MG/3 ML 0.63 MG INHALATION ×4 (01:45→19:44)
[2022-09-13] MEDS: IPRATROPIUM BR 0.02% INH SOLN 0.5 MG/2.5 ML VIAL INHALATION ×4 (01:45→19:44)
[2022-09-13] MEDS: SODIUM CHLORIDE 0.9% IV 1,000 ML 100 ML IV CONT ×2 (01:53→11:53)
[2022-09-13 02:13] LABS: Influenza A QL RT-PCR Negative (Negative); Influenza B QL RT-PCR Negative (Negative); SARS-CoV-2 RNA PCR Negative
--- NOTE | 2022-09-13 02:15 | PC.NURSE ---
This patient, Richie Garcia, was admitted to Intensive Care Unit-3. Patient/family oriented to hospital policies and general routines including ID bracelet, bed and alarms, visiting hours, pain management, procedures, bathroom and other care routines, personal items, smoking policy, room service/diet, and visiting hours. Information on how to activate the Rapid Response Team has been discussed. Patient/Family are encouraged to report perceived risks to care and to ask questions if they do not understand what they are told or what they should do.
--- NOTE | 2022-09-13 02:16 | PC.NURSE ---
Daughter Meeta called for admit information. States father was a DNR prior to cardiac arrest but when family didn't want to make decisions (per daughter) and his sister asked if he wanted a pacemaker her nodded yes, so family id=s electing for him to be a full code. Living will and POA papers requested to brought in.
--- NOTE | 2022-09-13 02:18 | PC.NURSE ---
Passive leg raise completed; pat only had 1.6% change and therefore is not fluid responsive. SVI 35, CI 2.0, HR57, SVI 1.6%
[2022-09-13 02:23] LABS: Hematocrit 35.1 % (42.0-52.0); Hemoglobin 10.1 g/dL (14.0-18.0); Mean Corpuscular HGB Conc 28.8 g/dl (32-36); Mean Corpuscular Hemoglobin 28.4 pg (26-34); Mean Corpuscular Volume 98.6 fl (80-100); Mean Platelet Volume 10.6 fl (7.4-10.4); Platelet Count Result 177 k/mm3 (150-375); Red Blood Count 3.56 M/mm3 (4.6-6.20); Red Cell Distribution Width 14.7 % (11.5-14.5); White Blood Count 10.7 K/mm3 (4.5-10.0)
[2022-09-13 02:35] LABS: Lactic Acid Reflex 2.8 mmol/L (0.7-2.0)
--- NOTE | 2022-09-13 02:57 | PC.NURSE ---
received call from lab that CMP was contaminated, blood sugar was greater than 100 and everything else was low. L=Main lab states they will let exceptional student education teacher know they need to redraw.
--- NOTE | 2022-09-13 03:29 | PC.NURSE ---
Lab called and wants to use blood from troponin drawn at 0053 for 0200 labs that were contaminated. Checked with Dr Callejas and she would prefer labs redrawn now and 0500 labs be pushed back to 1000. Informed lab; Hayden states her will make changes and be up to redraw labs.
[2022-09-13 03:37] LABS: Anisocytosis 1+ (NORMAL); Band Neutrophils Percent 3 % (0-6); Eosinophils Percent Manual 1 % (0-4); Hypochromasia 1+ (NORMAL); Lymphocytes Absolute Manual 0.74 K/mm3 (1.1-4.5); Metamyelocytes Percent 1 %; Microcytosis 1+ (NORMAL); Monocytes Absolute Manual 0.74 K/mm3 (0.1-0.90); Monocytes Percent Manual 7 % (3-9); Myelocytes Percent 1 %; Neutrophils Absolute Manual 8.88 K/mm3 (1.3-6.7); Neutrophils Percent Manual 80 % (46-73); Platelet Estimate Adequate (Adequate); Schistocytes None Seen (NORMAL); Total Cells Counted 100
[2022-09-13 04:59] LABS: Alanine Aminotransferase 132 U/L (6-50); Albumin Level 3.5 g/dL (3.5-5.1); Alkaline Phosphatase 75 U/L (38-126); Anion Gap 6 mmol/L (8-16); Aspartate Amino Transferase 172 U/L (17-59); Bilirubin,Total 0.6 mg/dL (0.2-1.3); Blood Urea Nitrogen 18 mg/dL (9-20); Calcium 8.3 mg/dL (8.4-10.2); Carbon Dioxide 31 mmol/L (22-30); Chloride 99 mmol/L (98-107); Creatine Kinase 340 U/L (55-170); Estimated CRCL calculation 44 ml/min; Estimated Glomerular Filt Rate 48; Glucose 362 mg/dL (65-110); Magnesium 1.9 mg/dL (1.6-2.3); Potassium 3.2 mmol/L (3.4-5.0); Sodium 136 mmol/L (137-145)
[2022-09-13 05:19] LABS: Alveolar/Arterial O2 Gradient 300.7 mmHg; Base Excess ABG 3.9 mEq/l (+/-2.0); Carboxyhemoglobin 0.3 % THb (0-2.0); Fractional Inspired Oxygen 60 %; HCO3 ABG 28.2 mEq/l (22.0-26.0); Methemoglobin ABG 0.3 %THb (0-1.5); Oxygen Content ABG 17.3 %vol (16.0-22.0); Oxygen Saturation ABG 96.5 % (95.0-100.0); PCO2 ABG 41.2 mmHg (35.0-45.0); PO2 ABG 81.8 mmHg (80.0-100.0); PO2 FiO2 Ratio Arterial Blood 1.36 %; Reduced Hemoglobin 4.4 %THb (0-5.0); Total Hemoglobin 12.9 g/dL (12.0-18.0); pH ABG 7.453 (7.350-7.450)
[2022-09-13 05:20] LABS: Reflex Lactic Acid Yes or No Add Lactic
[2022-09-13 05:20] LABS: Device VENTILATOR; Modified Allen's Test Pass; Site Drawn RIGHT RADIAL
[2022-09-13 05:21] LABS: Arterial Blood Gas PEEP 5 cmH2O; Arterial Blood Gas Tidal Volume 500 ml; Arterial Blood Gas Vent Mode CMV; Arterial Blood Gas Ventilator rate 15 /MIN
[2022-09-13 05:25] LABS: Phosphorus 3.6 mg/dL (2.5-4.5)
[2022-09-13] MEDS: PIPERACILLIN/TAZOBACTAM SOD 4.5 GM in SODIUM CHLORIDE 0.9% IV 100 ML 200 ML IVPB ×3 (05:28→17:06)
[2022-09-13] MEDS: INSULIN ASPART (*BKC) 100 UNITS/ML SUB-Q ×3 (05:31→11:53)
[2022-09-13 05:35] LABS: Glucose Point of Care 334 mg/dl (65-105)
[2022-09-13 05:45] LABS: Lactic Acid 3.2 mmol/L (0.7-2.0)
[2022-09-13 05:52] LABS: Hemoglobin A1C 9.1 % (<5.7)
--- NOTE | 2022-09-13 07:57 | PM.CNCAR ---
Assessment and Plan Assessment and plan (1) Cardiopulmonary arrest: Code(s): I46.9 - Cardiac arrest, cause unspecified Status: Acute Assessment and Plan: Discuss with patient's daughter at length on the phone this morning and she wants me to speak to the family including patient's son and patient's sister. He was initially DNR status, and had refused invasive management including pacemaker and would rather than have that for syncope and heart blocks. Now he is a full code. Apparently in ER with ER physician and family present, while he was hypoxic after multiple defibrillations, patient nodded his head to the question asked of him, and that was if he wanted a pacemaker now or any more shocks if he needed them. Will need to determine this with family meeting or other option is once we're able to extubate him and no longer on sedation or hypoxic, to let him decide for us. Workup would include left heart cath, pacemaker/or ICD, then we can continue Amiodarone to prevent recurrence of V.fib/VT. Continue Lovenox, Lasix. Obtain echo. (2) V tach: Code(s): I47.20 - Ventricular tachycardia, unspecified Status: Acute (3) Atrial fibrillation: Code(s): I48.91 - Unspecified atrial fibrillation Status: Acute (4) Heart block atrioventricular: Code(s): I44.30 - Unspecified atrioventricular block Status: Acute (5) Bradycardia: Code(s): R00.1 - Bradycardia, unspecified Status: Acute (6) Hypertrophic cardiomyopathy: Code(s): I42.2 - Other hypertrophic cardiomyopathy Status: Acute (7) Hypertension: Code(s): I10 - Essential (primary) hypertension Status: Acute Assessment and Plan: Stable. (8) Obstructive sleep apnea: Code(s): G47.33 - Obstructive sleep apnea (adult) (pediatric) Status: Acute (9) DM2 (diabetes mellitus, type 2): Code(s): E11.9 - Type 2 diabetes mellitus without complications Status: Acute Assessment and Plan: Manage by hospitalist. History of Present Illness History of Present Illness Consult date/time: 09/13/22 07:57 Reason For Visit: postcardiopulmonary arrest, n stemi,diabetic hyper Narrative: 82 yr old man who is my regular cardiology patient and a patient of Dr. Caba presents to ER by ambulance after cardiac arrest. He has a history of covid infection on 04/17/20, DM, hypertension, dyslipidemia, HOCM, intermittent heart blocks, severe BARBIE. Yesterday the patient was walking in his backyard when he dropped to the ground.? The witnesses called his who called the ambulance immediately.? 2 minutes later CPR was started by the police and when EMT arrived they connected the patient to the monitor and he was shown to be in VFib.? The patient was shocked at least 7 times since the beginning of the CPR.? The patient was given epinephrine and amiodarone was started.? The patient came to the emergency room CPR was in progress with Vinay.? Within 1 minute of her arriving to the emergency room, the patient was able to answer questions.? His EKG was showing AFib with a normal ventricular response.? His compressions were stopped than LMA was pulled out.? The patient was able to answer to his name and age.? The patient was denying any shortness of breath or chest pain.? He had no focal neurological symptoms.? However his oxygen level was in the 80s.? Patient was intubated per ED provider after 1 successful attempt.? The patient was started on a Versed drip, amiodarone drip, and subcu Lovenox. Previously, he passed out once a few months ago and had dizziness a few times but refused a pacemaker for heart blocks.? Reports BERUMEN walking minimal distance for years and limited by knee pain.? Has edema of legs that get worse at end of the day.? Admits to snoring, waking up and daytime sleepiness. Denies chest pain, orthopnea, PND, palpitations, dizziness. Cardiovascular Procedures Echo/MUGA:: 01/23/20 Echo: TDS, EF
[2022-09-13] MEDS: POTASSIUM CHLORIDE INJ 40 MEQ in SODIUM CHLORIDE 0.9% IV 500 ML 130 MEQ IVPB (08:00)
[2022-09-13] MEDS: POTASSIUM CHLORIDE 20 MEQ PACKET (FOR LIQUID) 40 MEQ PO (08:00)
[2022-09-13] MEDS: MAGNESIUM SULF 2 GM/WATER 50ML 2 GM/50 ML BAG IVPB (08:02)
[2022-09-13] MEDS: MINERAL OIL/WHITE PETROLATUM OINTMENT 1 APPLIC EACH EYE ×2 (08:03→20:29)
[2022-09-13] MEDS: INSULIN GLARGINE (*BKC) 100 UNITS/ML 10 UNITS SUB-Q (08:03)
[2022-09-13] MEDS: ENOXAPARIN 120 MG/0.8 ML SYRINGE 115 MG SUB-Q (08:03)
[2022-09-13] MEDS: PANTOPRAZOLE SODIUM IV 40 MG VIAL IV PUSH (08:15)
[2022-09-13 08:17] LABS: Glucose Point of Care 288 mg/dl (65-105)
--- NOTE | 2022-09-13 08:50 | WPDCNINT ---
Assessment and Plan Assessment and plan (1) Cardiac arrest: Code(s): I46.9 - Cardiac arrest, cause unspecified Status: Acute Assessment and Plan: Patient with VFib arrest, CPR started and the field, upon arrival to the ER patient woke up, was talking and following commands, however he was hypoxic and was intubated in the ER. -cardiology evaluate the patient this morning, according to their notes patient was initially a DNR, he had refused invasive management including pacemaker. -currently he is a full code -patient did receive multiple defibrillations -according the ER note and family present patient was able to nod his head to the question asked of him if he wanted a pacemaker and he responded in positive -will further discuss with family and patient would requires it is left heart catheterization, pacemaker and/or AICD. -will hold amiodarone for now -continue full-dose Lovenox and Lasix -echo has been ordered (2) Non-STEMI (non-ST elevated myocardial infarction): Code(s): I21.4 - Non-ST elevation (NSTEMI) myocardial infarction Status: Acute Assessment and Plan: NSTEMI , with elevated troponins -continue therapeutic Lovenox, -patient is allergic to aspirin -no beta-blockers at this time, given patient has had heart blocks (3) Respiratory failure: Code(s): J96.90 - Respiratory failure, unspecified, unspecified whether with hypoxia or hypercapnia Status: Acute Assessment and Plan: Patient was hypoxic after arrival to the ER, was intubated placed on mechanical ventilation, CTA chest with no evidence of pulmonary embolism and extensive infiltrates with ground-glass opacification and consolidation bilaterally. -influenza and COVID tests were negative -patient was started on Zosyn, vancomycin (09/12), and 1 dose of doxycycline -Will start azithromycin (09/13) to cover atypical -chest x-ray and ABGs reviewed -currently on CMV mode of ventilation, peep of 5 and 30% FiO2 -with start bronchodilators -check sputum culture -09/12: CTA chest - No evidence for pulmonary embolism.:? Extensive infiltrates with groundglass opacification and consolidation bilaterally. Differential diagnosis includes edema, pneumonia and/or atelectasis. (4) Pneumonia: Code(s): J18.9 - Pneumonia, unspecified organism Status: Acute Assessment and Plan: CTA chest x-ray reflective of pneumonia -continue antibiotics as above -treatment is above (5) Heart block atrioventricular: Code(s): I44.30 - Unspecified atrioventricular block Status: Acute Assessment and Plan: Patient with history of heart block, will require left heart catheterization, possible pacemaker and/or AICD -appreciate cardiology evaluation recommendation (6) Hypertension: Code(s): I10 - Essential (primary) hypertension Status: Acute Assessment and Plan: Hold antihypertensives at this time is blood pressures are borderline (7) Diabetes mellitus with hyperglycemia: Code(s): E11.65 - Type 2 diabetes mellitus with hyperglycemia Status: Acute Assessment and Plan: Hyperglycemia with diabetes -continue Accu-Cheks with high-dose sliding scale insulin -added Lantus (8) UTI (urinary tract infection): Code(s): N39.0 - Urinary tract infection, site not specified Status: Acute Assessment and Plan: Possible UTI on UA -continue antibiotics as above -blood and urine cultures are pending (9) Electrolyte imbalance: Code(s): E87.8 - Other disorders of electrolyte and fluid balance, not elsewhere classified Status: Acute Assessment and Plan: - replace potassium, keep potassium > 4.0 due to arrhythmias -replace magnesium Plan DVT prophylaxis: Therapeutic Lovenox Stress ulcer prophylaxis: Protonix Nutrition: Start tube feeds Code Status: Full code Critical Care Time Spent: 54 minutes Due to a high probability of clinically significant, life
[2022-09-13] MEDS: PERFLUTREN LIPID MICROSPHERES 1.5 ML VIAL DILUTED TO 10 ML TOTAL VOLUME IV PUSH (09:12)
--- NOTE | 2022-09-13 09:12 | IVDEFINITY ---
Prior to administration of IV Definity the patient was educated on the risks and benefits of the imaging enhancing agent including potential adverse side effects. The patient verbalized understanding. Allergies were verified. No exclusion criteria were identified and at least one of the following inclusion criteria were met: 1) physician request, 2) patient technically difficult to image (per the [place] [employer] guidelines of two or more segments not discernable within the apical view), or 3) questionable left ventricular function. ?
[2022-09-13] MEDS: FUROSEMIDE INJ 40 MG/4 ML VIAL IV PUSH (09:55)
[2022-09-13 10:23] LABS: Hematocrit 37.7 % (42.0-52.0); Hemoglobin 12.3 g/dL (14.0-18.0); Mean Corpuscular HGB Conc 32.6 g/dl (32-36); Mean Corpuscular Hemoglobin 27.9 pg (26-34); Mean Corpuscular Volume 85.5 fl (80-100); Mean Platelet Volume 10.7 fl (7.4-10.4); Platelet Count Result 239 k/mm3 (150-375); Red Blood Count 4.41 M/mm3 (4.6-6.20); Red Cell Distribution Width 14.2 % (11.5-14.5); White Blood Count 11.4 K/mm3 (4.5-10.0)
[2022-09-13 10:38] LABS: Lactic Acid Reflex 2.8 mmol/L (0.7-2.0)
[2022-09-13 10:40] LABS: Alanine Aminotransferase 120 U/L (6-50); Albumin Level 3.2 g/dL (3.5-5.1); Alkaline Phosphatase 67 U/L (38-126); Anion Gap 8 mmol/L (8-16); Aspartate Amino Transferase 118 U/L (17-59); Bilirubin,Total 0.7 mg/dL (0.2-1.3); Blood Urea Nitrogen 20 mg/dL (9-20); Calcium 7.9 mg/dL (8.4-10.2); Carbon Dioxide 30 mmol/L (22-30); Chloride 100 mmol/L (98-107); Creatine Kinase 515 U/L (55-170); Estimated CRCL calculation 44 ml/min; Estimated Glomerular Filt Rate 48; Glucose 264 mg/dL (65-110); Magnesium 2.6 mg/dL (1.6-2.3); Potassium 3.2 mmol/L (3.4-5.0); Sodium 138 mmol/L (137-145)
[2022-09-13 11:53] LABS: Glucose Point of Care 272 mg/dl (65-105)
--- NOTE | 2022-09-13 13:06 | PC.NURSE ---
Patient to bundle tier and labeler. Telephone consent for Cardiac Cath obtained per Meeta Garcia, daughter. Attempted to contact patient's spouse Julián first per family wishes. intermediate staff stated Julián was not alert enough to give consent.
--- NOTE | 2022-09-13 14:09 | PM.CNCAR ---
Assessment and Plan Assessment and plan (1) Cardiopulmonary arrest: Code(s): I46.9 - Cardiac arrest, cause unspecified Status: Acute Plan [facility] discussed with the family, and family agreed and consented. Will proceed with C today. Given his ASA allergy, will perform diagnostic coronary angiography only. History of Present Illness History of Present Illness Consult date/time: 09/13/22 14:09 Requesting physician: Jaun Jackson, Consult reason: Other (Cardiac Cath) Reason For Visit: postcardiopulmonary arrest, n stemi,diabetic hyper Narrative: We are consulted for cardiac cath by Dr. Jackson. This is an 82-year-old male with a history of COVID infection 03/2020, diabetes, hypertension, dyslipidemia, HOCM, intermittent heart block previously refusing pacemaker, severe BARBIE who presented to [facility] after cardiac arrest. Patient is currently intubated, therefore, all history obtained from the chart and patient's medical team. Patient was walking in his backyard yesterday when he suddenly dropped to the ground. The witnesses called his who called the ambulance immediately. Two minutes later, CPR was started by the police and when EMT arrived, they connected patient to an AED and monitor showed VFIB. Patietn was shocked at least 7 times. Given epinephrine and amiodarone. When the patient came to the ED, CPR was in progress with the Vinay machine. Within 1 minute of arriving to the ED, patient was reportedly able to answer questions. However, then he became hypoxic with oxygen saturations down to the 80s and he was intubated. Echo shows LVEF 35-40%. Of note, patient has an unknown allergy listed to ASA. Review of Systems Review of Systems: ROS unobtainable: Yes unobtainable due to endotracheal tube and unobtainable due to medical condition PMFSH Past Medical History Medical History Congestive heart failure Grade 1 diastolic, EF is 60-65% DM2 (diabetes mellitus, type 2) History of bradycardia Hyperlipidemia Hypertension Obstructive sleep apnea Surgical History Surgical History Hx laparoscopic cholecystectomy Previous back surgery Family History Family History Mother Diabetes mellitus Father Family history of emphysema Other Family history of arthritis Hypertension Social History Social History Social History: The patient lives with his Portia. He is a former smoker. He is retired. He has Meeta Garcia listed as his daughter. Smoking packs per day: 1 Smoking cigarettes per day: 20.0 Years smoked: 20 Smoking pack-years: 20.00 Smoking status: Former smoker Tobacco type: cigarettes Second hand tobacco smoke exposure: Yes Smoking end date: 05/29/79 Alcohol intake: former Substance use: never Substance use type: does not use Living arrangements: with family Spiritual care concerns: No Meds Home Medications and Allergies Home Medications Medication Instructions Recorded Confirmed Type amlodipine 10 mg tablet 15 mg PO DAILY 07/27/20 09/13/22 History ascorbic acid (vitamin C) 1,000 mg 1 g PO DAILY 07/27/20 09/13/22 History tablet cholecalciferol (vitamin D3) 10 10 mcg PO DAILY 07/27/20 09/13/22 History mcg (400 unit) capsule glimepiride 4 mg tablet 4 mg PO BID 07/27/20 09/13/22 History ywheuerd-gpy-qulbf acid 300 1 tablet PO DAILY 07/27/20 09/13/22 History mcg-lycopene 600 mcg-lutein 300 mcg tablet (Centrum Silver Ultra Men's) potassium 99 mg tablet 99 mg PO DAILY 07/27/20 09/13/22 History torsemide 10 mg tablet 20 mg PO QAM 01/13/22 09/13/22 History Allergies Allergy/AdvReac Type Severity Reaction Status Date / Time aspirin Allergy Intermediate Unknown Verified 04/11/22 15:54 ANESTHESIA GAS AdvReac Severe SOB Uncoded
--- NOTE | 2022-09-13 14:23 | WPDMODSED ---
Moderate Sedation Note-Pt Data Patient Data Diagnosis: Cardiac arrest Present Complaint: Cardiac arrest Procedure to be performed/Plan: Coronary angiography, C Allergies Allergy/AdvReac Type Severity Reaction Status Date / Time aspirin Allergy Intermediate Unknown Verified 04/11/22 15:54 ANESTHESIA GAS AdvReac Severe SOB Uncoded 01/28/22 11:36 Home Medications Medication Instructions Recorded Confirmed Type amlodipine 10 mg tablet 15 mg PO DAILY 07/27/20 09/13/22 History ascorbic acid (vitamin C) 1,000 mg 1 g PO DAILY 07/27/20 09/13/22 History tablet cholecalciferol (vitamin D3) 10 10 mcg PO DAILY 07/27/20 09/13/22 History mcg (400 unit) capsule glimepiride 4 mg tablet 4 mg PO BID 07/27/20 09/13/22 History kuuurtbt-tuf-fablm acid 300 1 tablet PO DAILY 07/27/20 09/13/22 History mcg-lycopene 600 mcg-lutein 300 mcg tablet (Centrum Silver Ultra Men's) potassium 99 mg tablet 99 mg PO DAILY 07/27/20 09/13/22 History torsemide 10 mg tablet 20 mg PO QAM 01/13/22 09/13/22 History Current Medications: Active Medications Dextrose (Dextrose 50% 25 Gm/50 Ml Syringe) 12.5 gm IV PUSH PRN PRN; Protocol PRN Reason: Hypoglycemia Enoxaparin Sodium (Enoxaparin 120 Mg/0.8 Ml Syringe) 115 mg SUB-Q Q12HR [facility] Last Admin: 09/13/22 08:03 Dose: 115 mg Furosemide (Furosemide Inj 40 Mg/4 Ml Vial) 40 mg IV PUSH DAILY [facility] Last Admin: 09/13/22 09:55 Dose: 40 mg Glucagon (Glucagon For Inj 1 Mg Vial) 1 mg IM PRN PRN; Protocol PRN Reason: Hypoglycemia Glucose (Glucose Oral Gel 15 Gm Of Glucse In 37.5 Gm Tube) 15 gm PO PRN PRN; Protocol PRN Reason: Hypoglycemia Fentanyl Citrate (Fentanyl 2,500 Mcg/Ns 250 Ml) 2,500 mcg in 250 mls @ 5 mls/hr IV CONT .Q50H [facility]; Protocol Last Titration: 09/13/22 09:47 Dose: 50 mcg/hr, 5 mls/hr Midazolam HCl (Versed 100 Mg/Ns 100 Ml) 100 mg in 100 mls @ 3 mls/hr IV CONT .[id number] [facility]; Protocol Last Titration: 09/13/22 09:49 Dose: 3 mg/hr, 3 mls/hr Acetaminophen (Ofirmev 1,000 Mg Ivpb) 1,000 mg in 100 mls @ 400 mls/hr IVPB Q6H PRN PRN Reason: Mild Pain (1-3) or Fever Stop: 09/13/22 20:18 Piperacillin Sod/Tazobactam (Sod 4.5 gm/ Sodium Chloride) 100 mls @ 200 mls/hr IVPB Q6H [facility] Last Admin: 09/13/22 11:52 Dose: 200 mls/hr Dextrose (Dextrose 5% 1,000 Ml) 1,000 mls @ 100 mls/hr IVPB PRN PRN; Protocol PRN Reason: Hypoglycemia Vancomycin HCl (Vancomycin 1,500 Mg/D5w 500 Ml) 1,500 mg in 500 mls @ 250 mls/hr IVPB Q24H [facility] Sodium Chloride (Normal Saline Iv) 1,000 mls @ 100 mls/hr IV CONT .Q10H [facility] Last Admin: 09/13/22 11:53 Dose: 100 mls/hr Azithromycin (Zithromax) 500 mg in 250 mls @ 250 mls/hr IVPB Q24H [facility] Last Admin: 09/13/22 09:55 Dose: 250 mls/hr Sodium Chloride (Normal Saline Iv) 1,000 mls @ 125 mls/hr IV CONT .Q8H ONE Stop: 09/13/22 22:06 Insulin Aspart (Insulin Aspart (*Bkc) 100 Units/Ml) 4 - 8 units SUB-Q Q4HR [facility]; Protocol Last Admin: 09/13/22 11:53 Dose: 5 units Insulin Glargine (Insulin Glargine (*Bkc) 100 Units/Ml) 10 units SUB-Q DAILY [facility] Last Admin: 09/13/22 08:03 Dose: 10 units Ipratropium [place] (Ipratropium Br 0.02% Inh Soln 0.5 Mg/2.5 Ml Vial) 0.5 mg INHALATION Q6HRT [facility] Last Admin: 09/13/22 07:30 Dose: 0.5 mg Levalbuterol HCl (Levalbuterol Neb 1.25 Mg/3 Ml) 0.63 mg INHALATION Q6HRT [facility] Last Admin: 09/13/22 07:30 Dose: 0.63 mg Multi-Ingred Cream/Lotion/Oil/Oint (Mineral Oil/White Petrolatum Ointment) 1 applic EACH EYE Q12HR [facility] Last Admin: 09/13/22 08:03 Dose: 1 applic Pantoprazole Sodium (Pantoprazole Sodium Iv 40 Mg Vial) 40 mg IV PUSH QAM [facility] Last Admin: 09/13/22 08:15 Dose: 40 mg Perflutren Lipid Microsphere (Perflutren Lipid Microspheres 1.5 Ml Vial Diluted To 10 Ml Total Volume) 0 ml IV PUSH ONCE PRN; Protocol PRN Reason: adequate visualization Stop: 09/14/22 22:28 Sedation/Anesthesia: No previous sedation/anesthesia problems (including family history). [facility] Past Medical History Medical History
--- NOTE | 2022-09-13 14:25 | WPDCARDPROC ---
Cardiac Cath Procedure Note Date of procedure:: 09/13/22 Performing physician:: CATHETERIZATION LABORATORY REPORT Procedure Date: 09/13/2022 Tyre Finisher And Examiner: Rock Denny M.D., [facility]? Referring Physician: Dr. Jackson ? Anesthesia: Procedure start time: 13:43 Procedure end time: 14:01 Total procedure time: 18 minutes Patient already on Versed and Fentanyl drips on arrival to the medical lab director. No additional sedation was administered. Pre-op Diagnosis: Cardiac arrest Post-op Diagnosis: Significant obstructive mid LAD stenosis Right dominant coronary artery system Left ventricular end-diastolic pressure of 19mmHg Procedure(s): 1. Ultrasound-guided access of the right common femoral artery 2. Coronary angiography 3. Left heart cath Access Site: Right common femoral artery Brief History and Clinical Indications: Patient is an 82-year-old male with a history of COVID infection 03/2020, diabetes, hypertension, dyslipidemia, HOCM, intermittent heart block previously refusing pacemaker, severe BARBIE who presented to [facility] after VF cardiac arrest. Patient referred for [facility] for ischemic evaluation. All risks, benefits and alternatives to left heart catheterization with or without percutaneous coronary intervention was discussed at length with the patient's family. Risk of complications including but not limited to bleeding, infection, arrhythmia, stroke, worsening kidney function, blood loss, groin hematoma, limb loss, emergency coronary artery bypass grafting, and even were discussed with the patient's family and all questions were answered. The patient's family understood and wished to proceed. Time out called, patient name, date of , medical record number, allergies, procedure performed, identify Tyre Finisher And Examiner, patient and staff member concurred with accurate data, procedure carried on. Findings: LEFT HEART CATHETERIZATION FINDINGS: 1. Left main: The left main coronary artery is widely patent without any significant obstructive disease. 2. Left anterior descending: The proximal LAD has luminal irregularities. The first diagonal branch is a small caliber vessel that is diffusely diseased. The mid LAD has a focal calcific 80% stenosis immediately after the takeoff of the second diagonal branch. The second diagonal branch has mild ostial-proximal disease. Remainder of the LAD has mild diffuse disease. The distal-apical LAD is of small caliber and diffusely diseased. 3. Ramus: Ramus branch has moderate diffuse disease in its proximal-mid portion. Remainder of the Ramus vessel has mild diffuse disease. 3. Left circumflex: The left circumflex artery and the main marginal branches have mild diffuse disease without any significant obstructive angiographic disease. 4. Right coronary artery: Large caliber vessel. The RCA is the dominant vessel. The RCA has mild diffuse disease. RPLV and RPDA with mild diffuse disease. 5. Left ventricle: A. End-diastolic pressure 19mmHg. B. LV gram deferred. C. No significant gradient across aortic valve on catheter pullback. Description of Procedure: Informed consent signed and placed in the chart. Patient transferred to medical lab director room. Prepped and draped in usual sterile fashion. 2% lidocaine in right groin area. Micropuncture needle used to access right common femoral artery with Seldinger technique under fluoroscopic guidance. J wire advanced, micropuncture cannula placed. Right iliofemoral angiogram performed, access confirmed and micropuncture cannula exchanged for 5-FR sheath. 5F FL4 diagnostic catheter engaged Left Main Coronary Artery. 5F FR4 diagnostic catheter engaged Right Coronary Artery. Multiple orthogonal angiogram obtained and reviewed 5F Pigtail diagnostic catheter crossed aortic valve to obtain LVEDP, LV angiogram deferred. Femoral sheath to be removed later with manual pressure to achieve hemostasis ? Assessment: Significant obstructive mid LAD stenosis Righ
--- NOTE | 2022-09-13 14:47 | PC.NURSE ---
Patient returned from medical lab assistant.
--- NOTE | 2022-09-13 15:12 | PM.IMPN ---
Progress Note: A&P Assessment and Plan (1) Respiratory failure: Code(s): J96.90 - Respiratory failure, unspecified, unspecified whether with hypoxia or hypercapnia Status: Acute Assessment and Plan: CPR was started in the field.? Vinay was being used when the patient came in EMS.? Is reported that within 1 minute the patient did wake up and was talking in the emergency room.? However he was hypoxic and was intubated in the emergency room.? The patient is currently on a ventilator. It was reported that the patient had gone into V-tach and was shocked 7 times. It is also reported that the patient went into atrial fibrillation was placed on an amiodarone drip. Cardiology as well as cloth tester has been consulted. The patient was given subcu Lovenox. The patient is currently intubated and sedated. (2) Electrolyte imbalance: Code(s): E87.8 - Other disorders of electrolyte and fluid balance, not elsewhere classified Status: Acute Assessment and Plan: watch electrolytes (3) Congestive heart failure: Code(s): I50.9 - Heart failure, unspecified Status: Acute Assessment and Plan: cardiology rounding (4) DM2 (diabetes mellitus, type 2): Code(s): E11.9 - Type 2 diabetes mellitus without complications Status: Acute Assessment and Plan: accuchecks ssi (5) Hyperlipidemia: Code(s): E78.5 - Hyperlipidemia, unspecified Status: Acute (6) Atrial fibrillation: Code(s): I48.91 - Unspecified atrial fibrillation Status: Acute (7) V tach: Code(s): I47.20 - Ventricular tachycardia, unspecified Status: Acute Assessment and Plan: CPR was started in the field.? Vinay was being used when the patient came in EMS.? Is reported that within 1 minute the patient did wake up and was talking in the emergency room.? However he was hypoxic and was intubated in the emergency room.? The patient is currently on a ventilator. It was reported that the patient had gone into V-tach and was shocked 7 times. It is also reported that the patient went into atrial fibrillation was placed on an amiodarone drip. Cardiology as well as cloth tester has been consulted. The patient was given subcu Lovenox. The patient is currently intubated and sedated. Vent settings as per cloth tester. (8) Pneumonia: Code(s): J18.9 - Pneumonia, unspecified organism Status: Acute (9) Cardiac arrest: Code(s): I46.9 - Cardiac arrest, cause unspecified Status: Acute (10) Hypertension: Code(s): I10 - Essential (primary) hypertension Status: Acute (11) UTI (urinary tract infection): Code(s): N39.0 - Urinary tract infection, site not specified Status: Acute (12) Non-STEMI (non-ST elevated myocardial infarction): Code(s): I21.4 - Non-ST elevation (NSTEMI) myocardial infarction Status: Acute Assessment and Plan: PPt to have heart cath today and after stabilization will benefit from icd insertion in [facility] transfer later possible tomorrow Subjective Date/time seen: 09/13/22 15:12 82-year-old male patient who has hypertensive cardiomyopathy, hypertension, diabetes and dyslipidemia.? He has sleep obstructive sleep apnea as well.? (He also has a known history of atrial tachycardia.? He also has a 37 episodes of second-degree AV block and type 1 and type 2 episodes.? This is according to his cardiac event monitor on 02/07/2022.) Today the patient was brought into the emergency room via ambulance of cardiopulmonary arrest.? The patient was walking in his backyard when he dropped to the ground.? The witnesses called his who called the ambulance immediately.? 2 minutes later CPR was started by the police and when EMT arrived they connected the patient to the monitor and he was shown to be in VFib.? The patient was shocked at least 7 times since the beginning of the CPR.? The patient was given epinephrine and a
[2022-09-13] MEDS: SODIUM CHLORIDE 0.9% IV 1,000 ML 125 ML IV CONT (17:00)
[2022-09-13 17:08] LABS: Glucose Point of Care 154 mg/dl (65-105)
[2022-09-13 20:59] LABS: Glucose Point of Care 189 mg/dl (65-105)
--- NOTE | 2022-09-28 16:00 | PM.TDS ---
Transfer Discharge Sum: Prov Provider Date of admission: 09/12/22 20:19 Primary care physician: Morro Caba MD Admitting clinician: Drew Callejas MD Consults: 09/12/22 20:40 Consult to Physician Routine Comment: Consulting Provider: Jaun Jackson Reason for consultation: Bradycardia Has provider been notified: Yes 09/12/22 20:41 Consult to Physician Routine Comment: Consulting Provider: Bryce Fraser Reason for consultation: Postcardiac arrest Has provider been notified: Yes 09/13/22 Consult to Physician Routine Comment: left voicemail with Dr. Denny @[id number](ER,US) Consulting Provider: Rock Denny will call order clerk/MD group to consult: HCG Reason for consultation: left heart cath Has provider been notified: Yes DS: Admitting Diagnosis Discharge Date 09/13/22 Admitting Diagnosis Cardiac arrest-CPR DS: Discharge Diagnosis Discharge Diagnosis (1) Non-STEMI (non-ST elevated myocardial infarction): Code(s): I21.4 - Non-ST elevation (NSTEMI) myocardial infarction Status: Acute Assessment and Plan: PPt to have heart cath today and after stabilization will benefit from icd insertion in [facility] Transfer as soon as possible (2) V tach: Code(s): I47.20 - Ventricular tachycardia, unspecified Status: Acute Assessment and Plan: CPR was started in the field.? Vinay was being used when the patient came in EMS.? Is reported that within 1 minute the patient did wake up and was talking in the emergency room.? However he was hypoxic and was intubated in the emergency room.? The patient is currently on a ventilator. It was reported that the patient had gone into V-tach and was shocked 7 times. It is also reported that the patient went into atrial fibrillation was placed on an amiodarone drip. Cardiology as well as franchise business consultant has been consulted. The patient was given subcu Lovenox. The patient is currently intubated and sedated. Vent settings as per franchise business consultant. (3) Cardiac arrest: Code(s): I46.9 - Cardiac arrest, cause unspecified Status: Acute Assessment and Plan: See above details (4) Respiratory failure: Code(s): J96.90 - Respiratory failure, unspecified, unspecified whether with hypoxia or hypercapnia Status: Acute Assessment and Plan: CPR was started in the field.? Vinay was being used when the patient came in EMS.? Is reported that within 1 minute the patient did wake up and was talking in the emergency room.? However he was hypoxic and was intubated in the emergency room.? The patient is currently on a ventilator. It was reported that the patient had gone into V-tach and was shocked 7 times. It is also reported that the patient went into atrial fibrillation was placed on an amiodarone drip. Cardiology as well as franchise business consultant has been consulted. The patient was given subcu Lovenox. The patient is currently intubated and sedated. (5) Electrolyte imbalance: Code(s): E87.8 - Other disorders of electrolyte and fluid balance, not elsewhere classified Status: Acute Assessment and Plan: Watch electrolytes (6) Congestive heart failure: Code(s): I50.9 - Heart failure, unspecified Status: Acute Assessment and Plan: cardiology rounding (7) DM2 (diabetes mellitus, type 2): Code(s): E11.9 - Type 2 diabetes mellitus without complications Status: Acute Assessment and Plan: Accuchecks, ssi (8) Hyperlipidemia: Code(s): E78.5 - Hyperlipidemia, unspecified Status: Acute (9) Atrial fibrillation: Code(s): I48.91 - Unspecified atrial fibrillation Status: Acute (10) Pneumonia: Code(s): J18.9 - Pneumonia, unspecified organism Status: Acute (11) Hypertension: Code(s): I10 - Essential (primary) hypertension Status: Acute (12) UTI (urinary tract infection): Code(s): N39.0 - Urinary tract infection, site not
== END 2022-09-13 21:22 | disposition short-term general hospital (02) | DRG 280 ==
LOC: ANHED 18:26 → ANHICU 20:46
PROVIDERS: Internal Medicine; Nurse Practitioner; Admitting Provider Internal Medicine; Emergency Provider Emergency Medicine; PCP Internal Medicine; Visit Provider Internal Medicine Cardiovascular Disease
PROC: 4A023N7 Measurement of Cardiac Sampling and Pressure, Left Heart, Percutaneous Approach (ICD-10-PCS; CPT 93452; principal; 2022-09-13 13:00)
DX: I21.4 Non-ST elevation (NSTEMI) myocardial infarction (principal); I46.9 Cardiac arrest, cause unspecified; I50.33 Acute on chronic diastolic (congestive) heart failure; J18.9 Pneumonia, unspecified organism; J96.01 Acute respiratory failure with hypoxia; I49.01 Ventricular fibrillation; I47.20 Ventricular tachycardia, unspecified; I43 Cardiomyopathy in diseases classified elsewhere; N39.0 Urinary tract infection, site not specified; I48.91 Unspecified atrial fibrillation; I44.30 Unspecified atrioventricular block; E11.9 Type 2 diabetes mellitus without complications; E78.5 Hyperlipidemia, unspecified; E87.8 Other disorders of electrolyte and fluid balance, not elsewhere classified; G47.33 Obstructive sleep apnea (adult) (pediatric); Z20.822 Contact with and (suspected) exposure to COVID-19; Z87.891 Personal history of nicotine dependence
CPT/HCPCS: 31500; 36415; 36600; 70450; 71045; 71275; 80053; 81001; 82375; 82550; 82805; 82948; 83036; 83050; 83605; 83735; 83880; 84100; 84478; 84484; 85025; 85027; 85610; 85730; 87040; 87081; 87086; 87636; 93005; 93458; 94640; 96374; 99291; A9270; C1887; C1894; C8929; C9113; J0282; J0330; J0456; J1644; J1650; J1815; J1940; J2250; J2543; J2704; J3010; J3370; J3475; J3480; J7030; J7040; Q9957; Q9967

== ENCOUNTER 2022-10-16 15:43 | Emergency (ER) | payer MEDICARE, SELFPAY ==
[2022-10-16] VITALS (34 sets, daily range): BP systolic 138–159; BP diastolic 65–80; PULSE 58–85; RESP 13–20; TEMP 36.8; O2SAT 92–100
--- NOTE | 2022-10-16 15:49 | ECG_ITS ---
Measurements Intervals [place] Rate: 60 P: 53 NM: 196 QRS: -70 QRSD: 189 T: 102 QT: 535 QTc: 537 Interpretive Statements ATRIAL SENSE- ELECTRONIC VENTRICULAR PACEMAKER BASELINE ARTIFACT- I, II, AVR NO FURTHER INTERPRETATION IS POSSIBLE ATYPICAL ECG COMPARED TO ECG 09/12/2022 18:13:35 VENTRICULAR PACEMAKER NOW PRESENT Electronically Signed On 10-16-2022 21:59:51 CDT by Jaun Jackson D.O.
[2022-10-16 16:11] LABS: Basophils Absolute Auto 0.1 K/mm3 (0.0-0.1); Basophils Percent Auto 1.1 % (0.2-1.2); Eosinophils Absolute Auto 0.5 K/mm3 (0-0.3); Eosinophils Percent Auto 4.9 % (0-4.4); Hematocrit 38.7 % (42.0-52.0); Hemoglobin 12.2 g/dL (14.0-18.0); Immature Granulocyte Absolute 0.06 K/mm3 (0.00-0.031); Immature Granulocyte Percent A 0.6 % (0-0.5); Lymphocytes Percent Auto 28.4 % (18.3-44.2); Mean Corpuscular HGB Conc 31.5 g/dl (32-36); Mean Corpuscular Hemoglobin 27.4 pg (26-34); Mean Platelet Volume 9.5 fl (7.4-10.4); Monocytes Absolute Auto 0.8 K/mm3 (0.1-0.6); Monocytes Percent Auto 7.6 % (2.6-8.5); Neutrophils Absolute Auto 5.9 K/mm3 (1.3-6.7); Neutrophils Percent Auto 57.4 % (45.5-73.1); Platelet Count Result 216 k/mm3 (150-375); Red Blood Count 4.45 M/mm3 (4.6-6.20); Red Cell Distribution Width 15.4 % (11.5-14.5); White Blood Count 10.2 K/mm3 (4.5-10.0)
[2022-10-16 16:12] LABS: Appearance Urine Clear (Clear); Bilirubin Urine Negative (Negative); Blood Urine Negative (Negative); Color Urine Yellow (Yellow); Glucose Urine UA Negative (Negative); Ketones Urine Negative (Negative); Leukocyte Esterase Ur Negative LEU/UL (Negative); Nitrate Urine Negative (Negative); Protein Urine Negative (Negative); Specific Grav Ur 1.011 (1.001-1.035); pH Urine 6.5 (5.0-9.0)
[2022-10-16 16:13] LABS: Add Urine Microscopic? NO
[2022-10-16 16:20] LABS: Alanine Aminotransferase 22 U/L (6-50); Alkaline Phosphatase 95 U/L (38-126); Anion Gap 9 mmol/L (8-16); Aspartate Amino Transferase 28 U/L (17-59); Bilirubin,Total 0.7 mg/dL (0.2-1.3); Blood Urea Nitrogen 20 mg/dL (9-20); Calcium 8.8 mg/dL (8.4-10.2); Carbon Dioxide 30 mmol/L (22-30); Chloride 99 mmol/L (98-107); Estimated CRCL calculation 58 ml/min; Estimated Glomerular Filt Rate > 60; Glucose 217 mg/dL (65-110); Potassium 3.7 mmol/L (3.4-5.0); Sodium 138 mmol/L (137-145)
[2022-10-16 17:43] LABS: NT Pro B Type Natriuretic Pept 1050 pg/mL (19.9-100)
--- NOTE | 2022-10-16 20:14 | ED.GENADULT ---
HPI - General Adult General Chief complaint: Weakness Stated complaint: weak, dizzy Time Seen by Provider: 10/16/22 17:04 History of Present Illness HPI narrative: 82-year-old male presented the ED for evaluation after having an episode of lightheaded and dizziness. Patient states he was at rest when he had onset of the symptoms. Patient states symptoms lasted about 30 minutes but have been resolved. Patient denied any associated chest pain or shortness of breath with this. Patient states he was doing physical therapy yesterday and feels he may have overexerted himself. Patient states he has had increased bilateral lower extremity swelling that has been unchanged since his recent heart attack. Related Data Home Medications Medication Instructions Recorded Confirmed amlodipine 10 mg tablet 15 mg PO DAILY 07/27/20 09/13/22 ascorbic acid (vitamin C) 1,000 mg 1 g PO DAILY 07/27/20 09/13/22 tablet cholecalciferol (vitamin D3) 10 10 mcg PO DAILY 07/27/20 09/13/22 mcg (400 unit) capsule glimepiride 4 mg tablet 4 mg PO BID 07/27/20 09/13/22 [id number] acid 300 1 tablet PO DAILY 07/27/20 09/13/22 mcg-lycopene 600 mcg-lutein 300 mcg tablet (Centrum Silver Ultra Men's) potassium 99 mg tablet 99 mg PO DAILY 07/27/20 09/13/22 torsemide 10 mg tablet 20 mg PO QAM 01/13/22 09/13/22 Allergies Allergy/AdvReac Type Severity Reaction Status Date / Time aspirin Allergy Intermediate Unknown Verified 04/11/22 15:54 ANESTHESIA GAS AdvReac Severe SOB Uncoded 01/28/22 11:36 Review of Systems Review of Systems: All systems reviewed & are unremarkable except as noted in HPI and below PMFSH Past Medical History Medical History Congestive heart failure Grade 1 diastolic, EF is 60-65% DM2 (diabetes mellitus, type 2) History of bradycardia Hyperlipidemia Hypertension Obstructive sleep apnea Surgical History Surgical History Hx laparoscopic cholecystectomy Previous back surgery Family History Family History Mother Diabetes mellitus Father Family history of emphysema Other Family history of arthritis Hypertension Social History Social History Social History: The patient lives with his Portia. He is a former smoker. He is retired. He has Meeta Garcia listed as his daughter. Smoking packs per day: 1 Smoking cigarettes per day: 20.0 Years smoked: 20 Smoking pack-years: 20.00 Smoking status: Former smoker Tobacco type: cigarettes Second hand tobacco smoke exposure: Yes Smoking end date: 05/29/79 Alcohol intake: former Substance use: never Substance use type: does not use Living arrangements: with family Spiritual care concerns: No Exam Narrative: APPEARANCE: Well appearing, no pain, no distress, well-nourished. HEAD: normocephalic, atraumatic. EYES: PERRLA/EOMI, conjunctivae clear. NOSE: Normal no drainage NECK: Supple. No adenopathy, no masses. RESPIRATORY: Airway patent, respirations nonlabored. Clear to auscultation bilaterally, no rales, rhonchi, wheezing. CARDIOVASCULAR: Regular rate and rhythm without murmurs rubs or gallops. ABDOMINAL: Soft, nontender, nondistended, normal bowel sounds MUSCULOSKELETAL: Moves all extremities. Strength/ROM intact, lower extremity edema NEURO: Alert. Cranial nerves II through XII intact. Grossly intact SKIN: Warm, dry. Normal Color Course Course Emergency Course: 82-year-old male presenting for evaluation of dizziness and generalized weakness. Patient states his symptoms are resolved at this time. Patient is afebrile with a leukocytosis of 10.2. Patient's hemoglobin is 12.2. Patient's BNP is mildly elevated compared to his baseline. Patient states that his swelling has been consistent since he was discharged. P
[2022-10-16 20:27] LABS: Glucose Point of Care 206 mg/dl (65-105)
--- NOTE | 2022-10-16 21:01 | PC.NURSE ---
[facility] ETA 2130.
== END 2022-10-16 21:54 ==
PROVIDERS: Emergency Provider Emergency Medicine; PCP Internal Medicine
DX: R53.1 Weakness (principal); I50.9 Heart failure, unspecified; I11.0 Hypertensive heart disease with heart failure; E11.9 Type 2 diabetes mellitus without complications; E78.5 Hyperlipidemia, unspecified; G47.33 Obstructive sleep apnea (adult) (pediatric); Z95.0 Presence of cardiac pacemaker; Z87.891 Personal history of nicotine dependence; Z79.84 Long term (current) use of oral hypoglycemic drugs
CPT/HCPCS: 36415; 80053; 81003; 82948; 83880; 85025; 93005; 99283

== ENCOUNTER 2023-03-22 14:25 | Emergency (ER) | payer MEDICARE, SELFPAY ==
[2023-03-22] VITALS (8 sets, daily range): BP systolic 94–128; BP diastolic 52–69; PULSE 60–64; RESP 12–20; TEMP 36.3; O2SAT 99–100
--- NOTE | ~2023-03-22 | XR_ITS ---
XR chest 1V portable DATE: 03/22/2023 15:54 INDICATION: Cough, shortness of breath. Covid-positive. TECHNIQUE: Portable AP chest on 03/22/2023 at 1542 [id number] hours COMPARISON: September 13, 2022 portable AP chest FINDINGS: Left dual-lead pacemaker/defibrillator device with leads overlying right atrium and right v entricle. Borderline heart size. Mild aortic unfolding and calcification. No pulmonary infiltrate or consolidation, pleural effusion or pulmonary vascular congestion or pneumo thorax is detected. Degenerative spurring of the thoracic spine. Bilateral rotator cuff atrophy. Osteoarthritic change at the glenohumeral joints. Osteopenia. IMPRESSION: No active pulmonary disease Reviewed, dictated and finalized at location A. IMPRESSION: No active pulmonary disease
--- NOTE | 2023-03-22 15:43 | ED.GENADULT ---
HPI - General Adult General Chief complaint: Upper Respiratory Infection Stated complaint: cough/covid+ Time Seen by Provider: 03/22/23 15:25 History of Present Illness HPI narrative: 82-year-old male presented to ED for evaluation of increased shortness of breath. Patient was recently diagnosed with COVID. Patient reports he had a coughing fit earlier today and felt that his airway had collapse. Upon arrival to the emergency department patient states that the symptoms have improved. Patient arrived by EMS and patient is resting comfortably. Patient denies any current chest pain or shortness of breath. Patient does have a productive cough. Related Data Home Medications Medication Instructions Recorded Confirmed amlodipine 10 mg tablet 15 mg PO DAILY 07/27/20 09/13/22 ascorbic acid (vitamin C) 1,000 mg 1 g PO DAILY 07/27/20 09/13/22 tablet cholecalciferol (vitamin D3) 10 10 mcg PO DAILY 07/27/20 09/13/22 mcg (400 unit) capsule glimepiride 4 mg tablet 4 mg PO BID 07/27/20 09/13/22 [id number]-rg-zpitj 300 mcg-K 60 1 tablet PO DAILY 07/27/20 09/13/22 mcg-lycop 600 mcg-lutein 300 mcg tablet (Centrum Silver Ultra Men's) potassium 99 mg tablet 99 mg PO DAILY 07/27/20 09/13/22 torsemide 10 mg tablet 20 mg PO QAM 01/13/22 09/13/22 Allergies Allergy/AdvReac Type Severity Reaction Status Date / Time aspirin Allergy Intermediate Unknown Verified 04/11/22 15:54 ANESTHESIA GAS AdvReac Severe SOB Uncoded 01/28/22 11:36 Review of Systems Review of Systems: All systems reviewed & are unremarkable except as noted in HPI and below PMFSH Past Medical History Medical History Congestive heart failure Grade 1 diastolic, EF is 60-65% DM2 (diabetes mellitus, type 2) History of bradycardia Hyperlipidemia Hypertension Obstructive sleep apnea Surgical History Surgical History Hx laparoscopic cholecystectomy Previous back surgery Family History Family History Mother Diabetes mellitus Father Family history of emphysema Other Family history of arthritis Hypertension Social History Social History Social History: The patient lives with his Portia. He is a former smoker. He is retired. He has Meeta Garcia listed as his daughter. Smoking packs per day: 1 Smoking cigarettes per day: 20.0 Years smoked: 20 Smoking pack-years: 20.00 Smoking status: Former smoker Tobacco type: cigarettes Second hand tobacco smoke exposure: Yes Smoking end date: 05/29/79 Alcohol intake: former Substance use: never Substance use type: does not use Living arrangements: with family Spiritual care concerns: No Exam Narrative: APPEARANCE: Well appearing, no pain, no distress, well-nourished. HEAD: normocephalic, atraumatic. EYES: PERRLA/EOMI, conjunctivae clear. NOSE: Normal no drainage NECK: Supple. No adenopathy, no masses. RESPIRATORY: Airway patent, respirations nonlabored. Clear to auscultation bilaterally, no rales, rhonchi, wheezing. CARDIOVASCULAR: Regular rate and rhythm without murmurs rubs or gallops. ABDOMINAL: Soft, nontender, nondistended, normal bowel sounds MUSCULOSKELETAL: Moves all extremities. Strength/ROM intact, No edema, No calf tenderness. NEURO: Alert. Cranial nerves II through XII intact. Grossly intact SKIN: Warm, dry. Normal Color Course Course Emergency Course: 82-year-old male present to the emergency department for evaluation of worsening shortness of breath after an intense coughing fit. Patient appears to be describing a bronchospasm. Upon arrival to the ED patient is saturating 99% on room air. Patient was treated with albuterol breathing treatment and chest x-ray was ordered. Patient does feel improved with treatment. Chest x-ray showed no acute cardio
[2023-03-22] MEDS: ALBUTEROL SULFATE NEB 2.5 MG/3 ML INH INHALATION (15:59)
== END 2023-03-22 17:24 ==
PROVIDERS: Emergency Provider Emergency Medicine; PCP Internal Medicine
DX: U07.1 COVID-19 (principal); J98.01 Acute bronchospasm; I50.9 Heart failure, unspecified; I11.0 Hypertensive heart disease with heart failure; E11.9 Type 2 diabetes mellitus without complications; E78.5 Hyperlipidemia, unspecified; G47.33 Obstructive sleep apnea (adult) (pediatric); Z87.891 Personal history of nicotine dependence; Z90.49 Acquired absence of other specified parts of digestive tract; Z79.84 Long term (current) use of oral hypoglycemic drugs
CPT/HCPCS: 71045; 94640; 99283

== ENCOUNTER 2023-06-11 23:14 | Inpatient (IN) | payer MEDICARE, SELFPAY ==
--- NOTE | ~2023-06-11 | XR_ITS ---
Portable chest x-ray Comparison: 03/22/2023 Clinical History: GI bleed, vomiting Findings: Right-sided Mediport in satisfactory position. Lungs are clear, without focal consolidatio n or pleural effusion. Cardiomediastinal silhouette is stable, with pacemaker device. Bones and soft tissues are unremarkable. Impression: Clear lungs. Mediport and pacemaker device in place. Reviewed, dictated and finalized at location M. ECT CONTROLLER Impression: Clear lungs. Mediport and pacemaker device in place.
--- NOTE | ~2023-06-11 | CT_ITS ---
Non-contrast Head CT History: Status post fall COMPARISON: 09/12/2022 Technique: Axial non-contrast imaging of the brain was performed. Dose reduction technique was used on this scan by utilizing automated exposure control and iterative reconstruction technique. The dose -length product (DLP) was 605.33 mGy-cm. Findings: There is no evidence of intracranial hemorrhage, mass lesion, or acute infarct. Brain par enchyma appears normal. The ventricles and subarachnoid spaces are normal in size. The calvarium ap pears normal. There is left sphenoid and left ethmoid sinus disease. The remaining visualized paranas al sinuses and mastoid air cells are clear. Impression: No intracranial abnormality seen. Sinus disease, as above. Reviewed, dictated and finalized at [facility]. RS' AGENT Impression: No intracranial abnormality seen. Sinus disease, as above.
--- NOTE | ~2023-06-11 | XR_ITS ---
Portable upright view of the abdomen Clinical history: Abdominal pain Findings: Bowel gas pattern is nonspecific. No evidence for obstruction or free air. No abnormal mass lesion or calcification is seen. Osseous structures are intact. Impression: No significant abnormality is seen. Reviewed, dictated and finalized at [facility]. ERIES TECHNICAL OFFICER Impression: No significant abnormality is seen.
--- NOTE | ~2023-06-11 | CT_ITS ---
Clinical Indication: Syncope, nausea and vomiting, weakness CT Scan of the Chest, Abdomen, and Pelvis without Contrast: Technique: Contiguous sections were acquired throughout the chest, abdomen, and pelvis without IV con trast administration. Dose reduction technique was used on this scan by utilizing automated exposure control and iterative reconstruction technique. The dose-length product (DLP) was 3326.25 mGy-cm. COMPARISON: 09/12/2022 Findings: There is no evidence of any significant mediastinal, hilar or axillary lymphadenopathy. Coronary cindy ry calcifications and pacemaker wires are present. There is no evidence of pleural or pericardial effusion. The lungs are clear, aside from calcified granulomas. The liver, spleen, pancreas, and adrenal glands are within normal limits. Small bilateral nonobstruct ing renal stones are present. Cholecystectomy clips are present. There are atherosclerotic calcificat ions of the aorta. No lymphadenopathy. Questionable wall thickening of the rectum. Prominent stool suggests constipation. Urinary bladder is unremarkable. No pelvic mass evident. No ascites. There is extensive degenerative spondylosis of the spine. Areas of lucency in the lumbar spine are similar to prior exam from 2018. T here are additional new lytic lesions in the pelvis, most notably in the left iliac bone (axial image 199), and also a small lesion in the right iliac bone (axial image 185). Impression: Suspected wall thickening of the rectum with luminal narrowing. Rectal neoplasm is a consideration. F urther workup with sigmoidoscopy should be considered. Subtle lytic lesions in the pelvis which are new from prior exam, suspicious for lytic metastases or myeloma. Additional lytic areas in the lumbar spine with extensive severe degenerative spondylosis, o verall similar in appearance to exam from 2018. Small bilateral nonobstructing renal stones. Reviewed, dictated and finalized at location M. LY SERVICE COUNSELOR Impression: Suspected wall thickening of the rectum with luminal narrowing. Rectal neoplasm is a consideration. Further workup with sigmoidoscopy should be considered. Subtle lytic lesions in the pelvis which are new from prior exam, suspicious fo r lytic metastases or myeloma. Additional lytic areas in the lumbar spine with extensive severe degenerative spondylosis, overall similar in appearance to exa m from 2018. Small bilateral nonobstructing renal stones.
[2023-06-11 23:17] VITALS: BP 103/63; PULSE 60; RESP 14; TEMP 36.3; O2SAT 97
--- NOTE | 2023-06-11 23:28 | ECG_ITS ---
Measurements Intervals [place] Rate: 60 P: 252 LA: 176 QRS: -73 QRSD: 210 T: 108 QT: 600 QTc: 600 Interpretive Statements ELECTRONIC ATRIAL PACEMAKER ELECTRONIC VENTRICULAR PACEMAKER BASELINE ARTIFACT- I, II, AVR, AVL, AVF NO FURTHER INTERPRETATION IS POSSIBLE ATYPICAL ECG COMPARED TO ECG 10/16/2022 15:54:27 NO SIGNIFICANT CHANGES Electronically Signed On 06-12-2023 6:22:43 TELEMETRY TECH by Jaun Jackson D.O.
[2023-06-11 23:34] VITALS: PULSE 60
[2023-06-11 23:43] LABS: Basophils Percent Auto 0.6 % (0.2-1.2); Eosinophils Absolute Auto 0.3 K/mm3 (0-0.3); Eosinophils Percent Auto 3.6 % (0-4.4); Hematocrit 35.9 % (42.0-52.0); Immature Granulocyte Absolute 0.11 K/mm3 (0.00-0.031); Immature Granulocyte Percent A 1.6 % (0-0.5); Lymphocytes Absolute Auto 0.78 K/mm3 (0.9-3.2); Lymphocytes Percent Auto 11.4 % (18.3-44.2); Mean Corpuscular HGB Conc 30.6 g/dl (32-36); Mean Corpuscular Hemoglobin 27.4 pg (26-34); Mean Corpuscular Volume 89.3 fl (80-100); Mean Platelet Volume 10.1 fl (7.4-10.4); Monocytes Absolute Auto 0.5 K/mm3 (0.1-0.6); Monocytes Percent Auto 6.7 % (2.6-8.5); Neutrophils Absolute Auto 5.2 K/mm3 (1.3-6.7); Neutrophils Percent Auto 76.1 % (45.5-73.1); Platelet Count Result 273 k/mm3 (150-375); Red Blood Count 4.02 M/mm3 (4.6-6.20); Red Cell Distribution Width 15.3 % (11.5-14.5); White Blood Count 6.9 K/mm3 (4.5-10.0)
--- NOTE | 2023-06-11 23:45 | ED.GENADULT ---
HPI - General Adult General Chief complaint: Syncope Stated complaint: SYNCOPE, N/V, hx of GI BLEED Time Seen by Provider: 06/11/23 23:37 History of Present Illness HPI narrative: this is an 83-year-old male presenting ED with nausea vomiting and a possible fall. patient says that he was feeling nauseous side of his bed to vomit. He is not sure if fell or lost consciousness but the [facility] found him on the floor. They believe he had an episode of dark blackish red vomit. He was hypotensive at 80/50 at that time. EMS was called on their exam the patient was having normal vomit with blood pressure of 130/80. At this time the patient has no complaints of pain. He is saying he is feeling nauseous and is retching at this time. He does not know when the last time he had a bowel movement was. Related Data Home Medications Medication Instructions Recorded Confirmed amlodipine 10 mg tablet 15 mg PO DAILY 07/27/20 09/13/22 ascorbic acid (vitamin C) 1,000 mg 1 g PO DAILY 07/27/20 09/13/22 tablet cholecalciferol (vitamin D3) 10 10 mcg PO DAILY 07/27/20 09/13/22 mcg (400 unit) capsule glimepiride 4 mg tablet 4 mg PO BID 07/27/20 09/13/22 tnyupwoe-tn-yxkhi 300 mcg-K 60 1 tablet PO DAILY 07/27/20 09/13/22 mcg-lycop 600 mcg-lutein 300 mcg tablet (Centrum Silver Ultra Men's) potassium 99 mg tablet 99 mg PO DAILY 07/27/20 09/13/22 torsemide 10 mg tablet 20 mg PO QAM 01/13/22 09/13/22 Allergies Allergy/AdvReac Type Severity Reaction Status Date / Time aspirin Allergy Intermediate Unknown Verified 04/11/22 15:54 ANESTHESIA GAS AdvReac Severe SOB Uncoded 01/28/22 11:36 [facility] Past Medical History Medical History Congestive heart failure Grade 1 diastolic, EF is 60-65% DM2 (diabetes mellitus, type 2) History of bradycardia Hyperlipidemia Hypertension Obstructive sleep apnea Surgical History Surgical History Hx laparoscopic cholecystectomy Previous back surgery Family History Family History Mother Diabetes mellitus Father Family history of emphysema Other Family history of arthritis Hypertension Social History Social History Social History: The patient lives with his Portia. He is a former smoker. He is retired. He has Meeta Garcia listed as his daughter. Smoking packs per day: 1 Smoking cigarettes per day: 20.0 Years smoked: 20 Smoking pack-years: 20.00 Smoking status: Former smoker Tobacco type: cigarettes Second hand tobacco smoke exposure: Yes Smoking end date: 05/29/79 Alcohol intake: former Substance use: never Substance use type: does not use Living arrangements: with family Spiritual care concerns: No Exam Narrative: APPEARANCE: Patient appears unwell Head: atraumatic. EYES: EOMI, NOSE: Atraumatic NECK: Trachea midline RESPIRATORY: clear to auscultation CARDIOVASCULAR: RRR, no peripheral edema ABDOMINAL: abdomen is is distended and tympanic. No tenderness guarding or rebound MUSCULOSKELETAl: No obvious deformities NEURO: Alert. Moving 4/4 extremities SKIN::cool/clammy PSYCHIATRIC: Normal affect Course Vital Signs Vital signs: Vital Signs Temperature 97.4 F L 06/11/23 23:17 Pulse Rate 60 06/11/23 23:17 Respiratory Rate 06/11/23 23:17 Blood Pressure 103/63 06/11/23 23:17 Pulse Oximetry 97 06/11/23 23:17 Oxygen Delivery Room Air 06/11/23 23:17 Temperature 97.4 F L 06/11/23 23:17 Pulse Rate 60 06/11/23 23:34 Respiratory Rate 14 06/11/23 23:17 Blood Pressure 103/63 06/11/23 23:17 Pulse Oximetry 97 06/11/23 23:53 Oxygen Delivery Room Air 06/11/23 23:53 Medical Decision Making MDM Narrative Medical decision making narrative: -Course:83-year-old male presenting from
[2023-06-11 23:51] LABS: Lactic Acid Reflex 2.4 mmol/L (0.7-2.0)
[2023-06-11 23:53] VITALS: O2SAT 97
[2023-06-11 23:53] LABS: Estimated Glomerular Filt Rate 21
[2023-06-11 23:54] LABS: Alanine Aminotransferase 20 U/L (6-50); Albumin Level 3.9 g/dL (3.5-5.1); Alkaline Phosphatase 73 U/L (38-126); Anion Gap 10 mmol/L (8-16); Aspartate Amino Transferase 32 U/L (17-59); Bilirubin,Total 0.6 mg/dL (0.2-1.3); Blood Urea Nitrogen 47 mg/dL (9-20); Carbon Dioxide 24 mmol/L (22-30); Chloride 102 mmol/L (98-107); Creatine Kinase 75 U/L (55-170); Estimated Glomerular Filt Rate 27; Glucose 140 mg/dL (65-110); Lipase 177 U/L (23-300); Magnesium 2.4 mg/dL (1.6-2.3); Phosphorus 4.2 mg/dL (2.5-4.5); Sodium 136 mmol/L (137-145)
[2023-06-11] MEDS: PANTOPRAZOLE SODIUM IV 40 MG VIAL 80 MG IV PUSH (23:55)
[2023-06-11 23:56] LABS: Prothrombin Time 14.2 Seconds (11.1-14.7)
[2023-06-11] MEDS: ONDANSETRON INJ 4 MG/2 ML VIAL 8 MG IV PUSH (23:56)
[2023-06-11] MEDS: SODIUM CHLORIDE 0.9% IV 2,000 ML 999 ML IV CONT (23:56)
[2023-06-11 23:57] LABS: Partial Thromboplastin Time 26.9 SECONDS (22.3-36.8)
[2023-06-12] VITALS (13 sets, daily range): BP systolic 106–140; BP diastolic 48–67; PULSE 60–88; RESP 12–16; TEMP 36.1–36.4; O2SAT 90–100; BMI 31.8
--- NOTE | 2023-06-12 | ECHO_ITS ---
Patient Info Name: Richie Garcia Age: 83 years : 1940 Gender: Male Ht: 70 in Wt: 221 lbs BSA: 2.25 m2 HR: 53 bpm BP: 114 / 55 mmHg Heart Rhythm: Paced Technical Quality: Fair Exam Date: 06/12/2023 2:12 PM Exam Location: Echo Lab Patient Status: Outpatient Admit Date: 06/12/2023 Staff Ordering Physician: Gela Tracey APRN Attending Provider: Drew Callejas MD Referring Physician: Alexy NORIEGA; Exam Type: CA echo dop color flow w con Study Info Indications R55 - Syncope and collapse Complete two-dimensional, color flow and Doppler transthoracic echocardiogram is performed with contrast to opacify the left ventricle and to improve the deliniation of the left ventricle endocardial borders. Contrast/Agitated Saline Contrast/Ag. Saline: Definity Amount: 2.00 ml Existing IV Access: Yes IV Access Condition: patent with no signs of infiltration History/Risk Factors Hypertension: Yes Diabetes Mellitus: Yes Tobacco Use: Former Family History: Coronary Artery Disease, Diabetes Mellitus Frailty Scale (CSHA): 6: Moderately Frail Summary 1. Definity contrast administered improved wall motion interpretation. 2. Left ventricular chamber dimension is normal. 3. Left ventricular systolic function is moderately reduced, estimated at 35-40%. 4. There is mild concentric increased left ventricular wall thickness. 5. The left ventricular diastolic function is grade I diastolic dysfunction. 6. E/e' 11 is mildly elevated. 7. Linear artifact in right ventricle suggestive of catheter(s), pacemaker lead(s), or ICD lead(s). 8. Left atrial chamber dimension is moderately enlarged. 9. Linear artifact in the right atrium suggestive of catheter(s), pacemaker lead(s), or ICD lead(s). 10. There is moderate aortic valve sclerosis. 11. There is mild aortic valve stenosis with a peak velocity of 220.12 cm/s, mean gradient of 11 mmHg, and aortic valve area of 1.71 cm2. 12. There is mild aortic valve regurgitation. 13. The mitral valve has mildly calcified leaflets and moderately calcified annulus. 14. No pulmonary hypertension, estimated pulmonary arterial systolic pressure is 28 mmHg. Recommendations * Continue medical therapy for diabetes. Left Ventricle E/e' 11 is mildly elevated. Definity contrast administered improved wall motion interpretation. Left ventricular chamber dimension is normal. Left ventricular systolic function is moderately reduced, estimated at 35-40%. There is mild concentric increased left ventricular wall thickness. The left ventricular diastolic function is grade I diastolic dysfunction. Right Ventricle Linear artifact in right ventricle suggestive of catheter(s), pacemaker lead(s), or ICD lead(s). Right ventricular systolic function is normal and with normal TAPSE 2.0 cm. Right ventricular chamber dimension is normal. Left Atria Left atrial chamber dimension is moderately enlarged. Right Atria Linear artifact in the right atrium suggestive of catheter(s), pacemaker lead(s), or ICD lead(s). Right atrial chamber dimension is normal. Aortic Valve The aortic valve is trileaflet. There is moderate aortic valve sclerosis. There is mild aortic valve stenosis with a peak velocity of 220.12 cm/s, mean gradient of 11 mmHg, and aortic valve area of 1.71 cm2. There is mild aortic valve regurgitation. Pulmonic Valve There is no pulmonic regurgitation. Mitral Valve The mitral valve has mildly calcified leaflets and moderately calcified annulus. There is no mitral valve stenosis.
[2023-06-12 00:11] LABS: Glucose Point of Care 149 mg/dl (65-105)
[2023-06-12 00:17] LABS: NT Pro B Type Natriuretic Pept 758 pg/mL (19.9-100); Troponin I < 0.012 ng/mL (0.000-0.034)
--- NOTE | 2023-06-12 00:45 | PM.IMHP ---
H&P: HPI History of Present Illness Date/Time: 06/12/23 00:45 Chief Complaint: Fall Narrative: This is an 83-year-old male [facility] resident past medical history significant for hypertension, type 2 diabetes mellitus, chronic kidney disease, pacemaker in place, obstructive sleep apnea, colorectal cancer. Patient comes to the emergency room after he was found down at his [facility] it is unclear if there was loss of consciousness patient states that he has not been feeling well for several weeks has been having nausea vomiting and diarrhea he was getting out of bed to vomit and he was found down. Patient was supposed to start radiation therapy just tomorrow. patient was also found to be hypotensive. Preliminary workup was significant for a creatinine of 2.9, BUN 47 patient tested negative for influenza type A type B and RSV and COVID. Non-contrast Head CT History: Status post fall COMPARISON: 09/12/2022 Technique:? Axial non-contrast imaging of the brain was performed. Dose reduction technique was used on this scan by utilizing automated exposure control and iterative reconstruction technique. The dose-length product (DLP) was 605.33 mGy-cm. Findings:? There is no evidence of intracranial hemorrhage, mass lesion, or acute infarct.? Brain parenchyma appears normal.? The ventricles and subarachnoid spaces are normal in size.? The calvarium appears normal. There is left sphenoid and left ethmoid sinus disease. The remaining visualized paranasal sinuses and mastoid air cells are clear. Impression: No intracranial abnormality seen. Sinus disease, as above. Portable upright view of the abdomen Clinical history: Abdominal pain Findings: Bowel gas pattern is nonspecific. No evidence for obstruction or free air. No abnormal mass lesion or calcification is seen. Osseous structures are intact. Impression: No significant abnormality is seen. CT Scan of the Chest, Abdomen, and Pelvis without Contrast: Technique: Contiguous sections were acquired throughout the chest, abdomen, and pelvis without IV contrast administration. Dose reduction technique was used on this scan by utilizing automated exposure control and iterative reconstruction technique. The dose-length product (DLP) was 3326.25 mGy-cm. COMPARISON: 09/12/2022 Findings: There is no evidence of any significant mediastinal, hilar or axillary lymphadenopathy. Coronary artery calcifications and pacemaker wires are present. There is no evidence of pleural or pericardial effusion. The lungs are clear, aside from calcified granulomas. The liver, spleen, pancreas, and adrenal glands are within normal limits. Small bilateral nonobstructing renal stones are present. Cholecystectomy clips are present. There are atherosclerotic calcifications of the aorta.? No lymphadenopathy. Questionable wall thickening of the rectum. Prominent stool suggests constipation. Urinary bladder is unremarkable. No pelvic mass evident. No ascites. There is extensive degenerative spondylosis of the spine. Areas of lucency in the lumbar spine are similar to prior exam from 2018. There are additional new lytic lesions in the pelvis, most notably in the left iliac bone (axial image 199), and also a small lesion in the right iliac bone (axial image 185). Impression: Suspected wall thickening of the rectum with luminal narrowing. Rectal neoplasm is a consideration. Further workup with sigmoidoscopy should be considered. Subtle lytic lesions in the pelvis which are new from prior exam, suspicious for lytic metastases or myeloma. Additional lytic areas in the lumbar spine with extensive severe degenerative spondylosis, overall similar in appearance to exam from 2018. Small bilateral nonobstructing renal stones. Review of Systems Review of Systems: nausea, vomiting, fall Constitutional: Constitutional: Reports poor appetite and Reports weakness Eyes: Eyes: Denies change in vision ENT
[2023-06-12 00:51] LABS: Influenza A QL RT-PCR Negative (Negative); Influenza B QL RT-PCR Negative (Negative); RSV RNA, RT-PCR Negative (Negative); SARS-CoV-2 RNA PCR Negative (Negative)
[2023-06-12 01:43] LABS: Appearance Urine Clear (Clear); Bilirubin Urine Negative (Negative); Blood Urine Negative (Negative); Color Urine Yellow (Yellow); Glucose Urine UA Negative (Negative); Ketones Urine Negative (Negative); Leukocyte Esterase Ur Negative LEU/UL (Negative); Nitrate Urine Negative (Negative); Protein Urine Negative (Negative); Specific Grav Ur 1.014 (1.001-1.035); Urobilinogen Urine 0.2 mg/dL (<2.0); pH Urine 5.5 (5.0-9.0)
[2023-06-12 01:50] LABS: Free T4 Free Thyroxine Reflex 0.35 ng/dL (0.78-2.19)
[2023-06-12] MEDS: SODIUM CHLORIDE 0.9% IV 2,000 ML 999 ML IV CONT (02:09)
[2023-06-12 02:29] LABS: Add Urine Microscopic? NO
[2023-06-12 02:38] LABS: Reflex Lactic Acid Yes or No Add Lactic
[2023-06-12 02:49] LABS: Troponin I < 0.012 ng/mL (0.000-0.034)
--- NOTE | 2023-06-12 03:27 | ADMGEN ---
This patient, Richie Garcia, was admitted to 2 Medical Room 249-01. Patient/family oriented to hospital policies and general routines including ID bracelet, bed and alarms, visiting hours, pain management, procedures, bathroom and other care routines, personal items, smoking policy, room service/diet, and visiting hours. Information on how to activate the Rapid Response Team has been discussed. Patient/Family are encouraged to report perceived risks to care and to ask questions if they do not understand what they are told or what they should do.
[2023-06-12 04:15] LABS: Lactic Acid 1.8 mmol/L (0.7-2.0)
--- NOTE | 2023-06-12 07:34 | P.PNIM_ITS ---
Progress Note: A&P Assessment and Plan (1) Fall: Code(s): W19.XXXA - Unspecified fall, initial encounter Status: Acute Assessment and Plan: 06/12/23: * Patient reports that he felt nauseated, reached for trash can to throw up and fell out of his bed. At that time he felt like he was going to pass out. * Will obtain orthostatic blood pressures * Will repeat his echo today, last echo was in August of 2022 which shown moderately reduced EF. * PT and OT ordered * fall precautions * Head CT negative for any acute intracranial process (2) Nausea vomiting and diarrhea: Code(s): R11.2 - Nausea with vomiting, unspecified; R19.7 - Diarrhea, unspecified Status: Acute Assessment and Plan: 06/12/23: * Patient given 2L NS for hydration while in the ER * Will start IVF for hydration as he is unable to keep adequate food/fluid down. * Zofran ordered for nausea * Advance diet as tolerated to a diabetic diet (3) CYNDY (acute kidney injury): Code(s): N17.9 - Acute kidney failure, unspecified Status: Acute Assessment and Plan: 06/12/23: * Initial BUN 47/ Creatinine 2.90, eGFR 21 * Baseline Creatinine 1.10 and baseline eGFR >60 * Today's BUN 41 and creatinine 2.10 * Patient received 2L NS while in ER for dehydration * Continue to trend labs * Holding Lasix, spironolactone, potassium chloride, and atorvastatin for now (4) Colorectal cancer: Code(s): C19 - Malignant neoplasm of rectosigmoid junction Status: Chronic Assessment and Plan: 06/12/23: * Patient was suppose to start radiation today, however became ill. * CT of the abdomen/chest/pelvis revealing wall thickening of the rectum with luminal narrowing, lytic lesion in the pelvis and spine suspicious for metastatic disease. * Will check fecal occult blood test considering history of GI bleed and report of a blood tinged emesis at home. (5) Hypothyroidism: Code(s): E03.9 - Hypothyroidism, unspecified Status: Acute Assessment and Plan: 06/12/23: * TSH 95.400, Free T4 0.35 * Patient started on Synthroid 150 mcg po daily * Will need to follow up with PCP on an outpatient basis as this is a new diagnosis. (6) DM2 (diabetes mellitus, type 2): Code(s): E11.9 - Type 2 diabetes mellitus without complications Status: Chronic Assessment and Plan: 06/12/23: * BG ranging 140-149 * Accu checks AC/HS * DM diet ordered * Correctional insulin low dose SSI ordered * Mealtime insulin ordered 5u AC/HS * Lantus 15 units ordered for tonight * Hgb A1C ordered (7) Hypertrophic cardiomyopathy: Code(s): I42.2 - Other hypertrophic cardiomyopathy Status: Chronic Assessment and Plan: 06/12/23: * Patient has pacemaker and is AV paced * Carvedilol restarted * Holding spironolactone and lasix due to CYNDY (8) Atrial fibrillation: Code(s): I48.91 - Unspecified atrial fibrillation Status: Chronic Assessment and Plan: 06/12/23: * Currently has pacemaker and is AV paced * Continue amiodarone * Patient is not currently on any anticoagulation (9) Obstructive sleep apnea: Code(s): G47.33 - Obstructive sleep apnea (adult) (pediatric) Status: Chronic Assessment and Plan: 06/12/23: * Patient wears Cpap at night Time Spent With Patient Time with patient: Greater than 35 minutes Subjective Date/time seen: 06/12/23 07:34 Interval history: This is an 83 year old male who presented to the hospital on 06/11/23 with lou patel
--- NOTE | 2023-06-12 07:34 | PM.IMPN ---
Progress Note: A&P Assessment and Plan (1) Fall: Code(s): W19.XXXA - Unspecified fall, initial encounter Status: Acute Assessment and Plan: 06/12/23: Patient reports that he felt nauseated, reached for trash can to throw up and fell out of his bed. At that time he felt like he was going to pass out. Will obtain orthostatic blood pressures Will repeat his echo today, last echo was in August of 2022 which shown moderately reduced EF. PT and OT ordered fall precautions Head CT negative for any acute intracranial process (2) Nausea vomiting and diarrhea: Code(s): R11.2 - Nausea with vomiting, unspecified; R19.7 - Diarrhea, unspecified Status: Acute Assessment and Plan: 06/12/23: Patient given 2L NS for hydration while in the ER Will start IVF for hydration as he is unable to keep adequate food/fluid down. 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 CT of the abdomen/chest/pelvis revealing wall thickening of the rectum with luminal narrowing, lytic lesion in the pelvis and spine suspicious for metastatic disease. Will check fecal occult blood test considering history of GI bleed and report of a blood tinged emesis at home. (5) Hypothyroidism: Code(s): E03.9 - Hypothyroidism, unspecified Status: Acute Assessment and Plan: 06/12/23: TSH 95.400, Free T4 0.35 Patient started on Synthroid 150 mcg po daily Will need to follow up with PCP on an outpatient basis as this is a new diagnosis. (6) DM2 (diabetes mellitus, type 2): Code(s): E11.9 - Type 2 diabetes mellitus without complications Status: Chronic Assessment and Plan: 06/12/23: BG ranging 140-149 Accu checks AC/HS DM diet ordered Correctional insulin low dose SSI ordered Mealtime insulin ordered 5u AC/HS Lantus 15 units ordered for tonight Hgb A1C ordered (7) Hypertrophic cardiomyopathy: Code(s): I42.2 - Other hypertrophic cardiomyopathy Status: Chronic Assessment and Plan: 06/12/23: Patient has pacemaker and is AV paced Carvedilol restarted Holding spironolactone and lasix due to CYNDY (8) Atrial fibrillation: Code(s): I48.91 - Unspecified atrial fibrillation Status: Chronic Assessment and Plan: 06/12/23: Currently has pacemaker and is AV paced Continue amiodarone Patient is not currently on any anticoagulation (9) Obstructive sleep apnea: Code(s): G47.33 - Obstructive sleep apnea (adult) (pediatric) Status: Chronic Assessment and Plan: 06/12/23: Patient wears Cpap at night Time Spent With Patient Time with patient: Greater than 35 minutes Subjective Date/time seen: 06/12/23 07:34 Interval history: This is an 83 year old male who presented to the hospital on 06/11/23 with complaints of syncope, nausea, and vomiting. He has history of GI bleed in the past. He was found on the floor by nursing staff with dark red tinged vomit. He was hypotensive 80/50. EMS was called and he was brought to the hospital for further evaluation. Work up in the hospital included a head CT, abdominal x-ray, and chest x-ray were all negative. Chest/Abdomen/Pelvis x-ray revealed suspected wall thickening of the rectum with luminal narrowing possibly representing a rectal neoplasm, sub
[2023-06-12 08:35] LABS: Basophils Percent Auto 0.4 % (0.2-1.2); Eosinophils Absolute Auto 0.2 K/mm3 (0-0.3); Eosinophils Percent Auto 1.8 % (0-4.4); Hematocrit 35.4 % (42.0-52.0); Hemoglobin 10.1 g/dL (14.0-18.0); Immature Granulocyte Percent A 0.9 % (0-0.5); Lymphocytes Percent Auto 8.5 % (18.3-44.2); Mean Corpuscular HGB Conc 28.5 g/dl (32-36); Mean Corpuscular Hemoglobin 26.7 pg (26-34); Mean Corpuscular Volume 93.7 fl (80-100); Mean Platelet Volume 10.2 fl (7.4-10.4); Monocytes Absolute Auto 0.6 K/mm3 (0.1-0.6); Monocytes Percent Auto 5.4 % (2.6-8.5); Neutrophils Absolute Auto 8.8 K/mm3 (1.3-6.7); Platelet Count Result 268 k/mm3 (150-375); Red Blood Count 3.78 M/mm3 (4.6-6.20); Red Cell Distribution Width 15.4 % (11.5-14.5); White Blood Count 10.6 K/mm3 (4.5-10.0)
[2023-06-12 08:47] LABS: Alanine Aminotransferase 19 U/L (6-50); Albumin Level 3.7 g/dL (3.5-5.1); Alkaline Phosphatase 74 U/L (38-126); Anion Gap 10 mmol/L (8-16); Aspartate Amino Transferase 24 U/L (17-59); Bilirubin,Total 0.5 mg/dL (0.2-1.3); Blood Urea Nitrogen 41 mg/dL (9-20); Calcium 7.7 mg/dL (8.4-10.2); Carbon Dioxide 22 mmol/L (22-30); Chloride 107 mmol/L (98-107); Estimated CRCL calculation 28 ml/min; Estimated Glomerular Filt Rate 30; Glucose 173 mg/dL (65-110); Potassium 4.3 mmol/L (3.4-5.0); Sodium 139 mmol/L (137-145)
[2023-06-12 09:03] LABS: Procalcitonin 0.3 ng/mL
[2023-06-12 09:35] LABS: Hypochromasia 1+ (NORMAL); Platelet Estimate Adequate (Adequate); Schistocytes None Seen (NORMAL)
[2023-06-12 10:22] LABS: Glucose Point of Care 171 mg/dl (65-105)
[2023-06-12] MEDS: carvediloL 6.25 MG TABLET PO ×2 (10:23→20:14)
[2023-06-12] MEDS: FAMOTIDINE 20 MG/2 ML VIAL IV PUSH ×2 (10:23→20:15)
[2023-06-12] MEDS: AMIODARONE HCL 200 MG TABLET PO (10:28)
[2023-06-12] MEDS: INSULIN ASPART (*BKC) 100 UNITS/ML SUB-Q ×2 (10:29→13:12)
[2023-06-12] MEDS: guaiFENesin 12 HR 600 MG TABCR 1200 MG PO ×2 (10:29→20:14)
[2023-06-12 12:10] LABS: Glucose Point of Care 161 mg/dl (65-105)
[2023-06-12 13:00] LABS: IFOB Positive Control Positive; Immunochemical Fecal Occult Bl Positive (N)
[2023-06-12] MEDS: SODIUM CHLORIDE 0.9% IV 1,000 ML 100 ML IV CONT ×2 (13:12→23:01)
[2023-06-12] MEDS: PERFLUTREN LIPID MICROSPHERES 1.5 ML VIAL DILUTED TO 10 ML TOTAL VOLUME IV PUSH (15:02)
[2023-06-12 17:17] LABS: Glucose Point of Care 101 mg/dl (65-105)
[2023-06-12] MEDS: LOPERAMIDE HCL 2 MG CAPSULE PO (20:14)
[2023-06-12] MEDS: INSULIN GLARGINE (*BKC) 100 UNITS/ML 15 UNITS SUB-Q (20:16)
[2023-06-12 20:32] LABS: Glucose Point of Care 135 mg/dl (65-105)
[2023-06-13] VITALS (17 sets, daily range): BP systolic 95–135; BP diastolic 48–60; PULSE 60–78; RESP 14–18; TEMP 36.3–36.4; O2SAT 93–100
[2023-06-13] MEDS: LEVOTHYROXINE SODIUM 150 MCG TABLET PO (05:39)
[2023-06-13 05:59] LABS: Hematocrit 31.7 % (42.0-52.0); Hemoglobin 9.3 g/dL (14.0-18.0); Mean Corpuscular HGB Conc 29.3 g/dl (32-36); Mean Corpuscular Hemoglobin 27.3 pg (26-34); Mean Platelet Volume 9.4 fl (7.4-10.4); Platelet Count Result 199 k/mm3 (150-375); Red Blood Count 3.41 M/mm3 (4.6-6.20); Red Cell Distribution Width 15.2 % (11.5-14.5); White Blood Count 6.5 K/mm3 (4.5-10.0)
[2023-06-13 06:12] LABS: Alanine Aminotransferase 29 U/L (6-50); Albumin Level 3.1 g/dL (3.5-5.1); Alkaline Phosphatase 70 U/L (38-126); Anion Gap 8 mmol/L (8-16); Aspartate Amino Transferase 38 U/L (17-59); Bilirubin,Total 0.4 mg/dL (0.2-1.3); Blood Urea Nitrogen 34 mg/dL (9-20); Calcium 7.5 mg/dL (8.4-10.2); Carbon Dioxide 21 mmol/L (22-30); Chloride 107 mmol/L (98-107); Estimated CRCL calculation 31 ml/min; Estimated Glomerular Filt Rate 34; Glucose 96 mg/dL (65-110); Potassium 3.7 mmol/L (3.4-5.0); Sodium 136 mmol/L (137-145)
[2023-06-13 06:31] LABS: Hemoglobin A1C 7.5 % (<5.7)
--- NOTE | 2023-06-13 07:02 | P.PNIM_ITS ---
Progress Note: A&P Assessment and Plan (1) Fall: Code(s): W19.XXXA - Unspecified fall, initial encounter Status: Acute Assessment and Plan: 06/12/23: * Patient reports that he felt nauseated, reached for trash can to throw up and fell out of his bed. At that time he felt like he was going to pass out. * Will obtain orthostatic blood pressures * Will repeat his echo today, last echo was in August of 2022 which shown moderately reduced EF. * PT and OT ordered * fall precautions * Head CT negative for any acute intracranial process 06/13/23: * Continue fall precautions * Continue PT and OT (2) Nausea vomiting and diarrhea: Code(s): R11.2 - Nausea with vomiting, unspecified; R19.7 - Diarrhea, unspecified Status: Acute Assessment and Plan: 06/12/23: * Patient given 2L NS for hydration while in the ER * Will start IVF for hydration as he is unable to keep adequate food/fluid down. * Zofran ordered for nausea * Advance diet as tolerated to a diabetic diet 06/13/23: * Patient able to hold food and fluid down today. Nausea and vomiting has subsided. He still is reporting diarrhea. * Will check a C-diff * Advance diet as tolerated. (3) CYNDY (acute kidney injury): Code(s): N17.9 - Acute kidney failure, unspecified Status: Acute Assessment and Plan: 06/12/23: * Initial BUN 47/ Creatinine 2.90, eGFR 21 * Baseline Creatinine 1.10 and baseline eGFR >60 * Today's BUN 41 and creatinine 2.10 * Patient received 2L NS while in ER for dehydration * Continue to trend labs * Holding Lasix, spironolactone, potassium chloride, and atorvastatin for now 06/13/23: * BUN 34, Creatinine 1.90, eGFR 34 * Will discontinue IVF today * Continue to hold meds as stated above. * Continue to trend labs. (4) Colorectal cancer: Code(s): C19 - Malignant neoplasm of rectosigmoid junction Status: Chronic Assessment and Plan: 06/12/23: * Patient was suppose to start radiation today, however became ill. * CT of the abdomen/chest/pelvis revealing wall thickening of the rectum with luminal narrowing, lytic lesion in the pelvis and spine suspicious for metastatic disease. * Will check fecal occult blood test considering history of GI bleed and report of a blood tinged emesis at home. 06/13/23: * Fecal occult blood positive, Consider GI consult if labs start to drop or active signs of bleeding. * Continue to monitor for signs of active bleeding. Currently VSS, however blood pressure is lower than his baseline. * Reporting liquid stools, order placed last evening for C-diff, remains uncollected. (5) Hypothyroidism: Code(s): E03.9 - Hypothyroidism, unspecified Status: Acute Assessment and Plan: 06/12/23: * TSH 95.400, Free T4 0.35 * Patient started on Synthroid 150 mcg po daily * Will need to follow up with PCP on an outpatient basis as this is a new diagnosis. 06/13/23: * Continue with current treatment plan (6) DM2 (diabetes mellitus, type 2): Code(s): E11.9 - Type 2 diabetes mellitus without complications Status: Chronic Assessment and Plan: 06/12/23: * BG ranging 140-149 * Accu checks AC/HS * DM diet ordered * Correctional insulin low dose SSI ordered * Mealtime insulin ordered 5u AC/HS * Lantus 15 units ordered for tonight * Hgb A1C ordered 06/13/23: * BG ranging 96-135 * Hgb A1C 7.5 which is improved for previous as he was 9.1 * Continue with current treatment plan (7) Hypertrophic cardiomyopathy: Code(s):
--- NOTE | 2023-06-13 07:02 | PM.IMPN ---
Progress Note: A&P Assessment and Plan (1) Fall: Code(s): W19.XXXA - Unspecified fall, initial encounter Status: Acute Assessment and Plan: 06/12/23: Patient reports that he felt nauseated, reached for trash can to throw up and fell out of his bed. At that time he felt like he was going to pass out. Will obtain orthostatic blood pressures Will repeat his echo today, last echo was in August of 2022 which shown moderately reduced EF. PT and OT ordered fall precautions Head CT negative for any acute intracranial process 06/13/23: Continue fall precautions Continue PT and OT (2) Nausea vomiting and diarrhea: Code(s): R11.2 - Nausea with vomiting, unspecified; R19.7 - Diarrhea, unspecified Status: Acute Assessment and Plan: 06/12/23: Patient given 2L NS for hydration while in the ER Will start IVF for hydration as he is unable to keep adequate food/fluid down. Zofran ordered for nausea Advance diet as tolerated to a diabetic diet 06/13/23: Patient able to hold food and fluid down today. Nausea and vomiting has subsided. He still is reporting diarrhea. Will check a C-diff Advance diet as tolerated. (3) CYNDY (acute kidney injury): Code(s): N17.9 - Acute kidney failure, unspecified Status: Acute Assessment and Plan: 06/12/23: Initial BUN 47/ Creatinine 2.90, eGFR 21 Baseline Creatinine 1.10 and baseline eGFR >60 Today's BUN 41 and creatinine 2.10 Patient received 2L NS while in ER for dehydration Continue to trend labs Holding Lasix, spironolactone, potassium chloride, and atorvastatin for now 06/13/23: BUN 34, Creatinine 1.90, eGFR 34 Will discontinue IVF today Continue to hold meds as stated above. Continue to trend labs. (4) Colorectal cancer: Code(s): C19 - Malignant neoplasm of rectosigmoid junction Status: Chronic Assessment and Plan: 06/12/23: Patient was suppose to start radiation today, however became ill. CT of the abdomen/chest/pelvis revealing wall thickening of the rectum with luminal narrowing, lytic lesion in the pelvis and spine suspicious for metastatic disease. Will check fecal occult blood test considering history of GI bleed and report of a blood tinged emesis at home. 06/13/23: Fecal occult blood positive, Consider GI consult if labs start to drop or active signs of bleeding. Continue to monitor for signs of active bleeding. Currently VSS, however blood pressure is lower than his baseline. Reporting liquid stools, order placed last evening for C-diff, remains uncollected. (5) Hypothyroidism: Code(s): E03.9 - Hypothyroidism, unspecified Status: Acute Assessment and Plan: 06/12/23: TSH 95.400, Free T4 0.35 Patient started on Synthroid 150 mcg po daily Will need to follow up with PCP on an outpatient basis as this is a new diagnosis. 06/13/23: Continue with current treatment plan (6) DM2 (diabetes mellitus, type 2): Code(s): E11.9 - Type 2 diabetes mellitus without complications Status: Chronic Assessment and Plan: 06/12/23: BG ranging 140-149 Accu checks AC/HS DM diet ordered Correctional insulin low dose SSI ordered Mealtime insulin ordered 5u AC/HS Lantus 15 units ordered for tonight Hgb A1C ordered 06/13/23: BG ranging 96-135 Hgb A1C 7.5 which is improved for previous as he was 9.1 Continue with current treatment plan (7) Hypertrophic cardiomyopathy: Code(s): I42.2 - Other hypertrophic cardiomyopathy Status: Chronic Assessment and Plan: 06/12/23: Patient has pacemaker and is AV paced Carvedilol restarted Holding spironolactone and lasix due to CYNDY 06/13/23: Blood pressures are running more soft today, parameters placed on Carvedilol to hold if systolic less than 100. Continue to hold diuretics due to CYNDY (8) Atrial fibrillation: Code(s): I48.91 - Unspecified atrial fibrillation Status: Chronic
[2023-06-13 08:37] LABS: Glucose Point of Care 84 mg/dl (65-105)
[2023-06-13] MEDS: FAMOTIDINE 20 MG/2 ML VIAL IV PUSH ×2 (09:21→21:47)
[2023-06-13] MEDS: guaiFENesin 12 HR 600 MG TABCR 1200 MG PO ×2 (09:21→21:47)
[2023-06-13] MEDS: carvediloL 6.25 MG TABLET PO ×2 (09:22→21:46)
[2023-06-13] MEDS: AMIODARONE HCL 200 MG TABLET PO (09:25)
[2023-06-13 12:11] LABS: Glucose Point of Care 151 mg/dl (65-105)
[2023-06-13] MEDS: INSULIN ASPART (*BKC) 100 UNITS/ML SUB-Q ×2 (13:13→17:57)
[2023-06-13] MEDS: SODIUM CHLORIDE 0.9% IV 1,000 ML 100 ML IV CONT (13:14)
[2023-06-13 17:10] LABS: Glucose Point of Care 147 mg/dl (65-105)
[2023-06-13] MEDS: INSULIN GLARGINE (*BKC) 100 UNITS/ML 15 UNITS SUB-Q (21:49)
[2023-06-13 22:04] LABS: Glucose Point of Care 114 mg/dl (65-105)
[2023-06-14] VITALS (17 sets, daily range): BP systolic 100–137; BP diastolic 47–61; PULSE 60–65; RESP 16; TEMP 36.4–36.6; O2SAT 91–100
[2023-06-14] MEDS: SODIUM CHLORIDE 0.9% IV 1,000 ML 100 ML IV CONT (01:10)
[2023-06-14 05:29] LABS: Hematocrit 32.9 % (42.0-52.0); Hemoglobin 9.7 g/dL (14.0-18.0); Mean Corpuscular HGB Conc 29.5 g/dl (32-36); Mean Corpuscular Volume 91.6 fl (80-100); Mean Platelet Volume 9.5 fl (7.4-10.4); Platelet Count Result 222 k/mm3 (150-375); Red Blood Count 3.59 M/mm3 (4.6-6.20); Red Cell Distribution Width 15.3 % (11.5-14.5); White Blood Count 7.8 K/mm3 (4.5-10.0)
[2023-06-14 05:39] LABS: Alanine Aminotransferase 66 U/L (6-50); Albumin Level 3.5 g/dL (3.5-5.1); Alkaline Phosphatase 85 U/L (38-126); Anion Gap 8 mmol/L (8-16); Aspartate Amino Transferase 71 U/L (17-59); Bilirubin,Total 0.4 mg/dL (0.2-1.3); Blood Urea Nitrogen 27 mg/dL (9-20); Calcium 8.1 mg/dL (8.4-10.2); Carbon Dioxide 23 mmol/L (22-30); Chloride 106 mmol/L (98-107); Estimated CRCL calculation 34 ml/min; Estimated Glomerular Filt Rate 38; Glucose 94 mg/dL (65-110); Potassium 4.1 mmol/L (3.4-5.0); Sodium 137 mmol/L (137-145)
[2023-06-14] MEDS: LEVOTHYROXINE SODIUM 150 MCG TABLET PO (07:02)
[2023-06-14 08:11] LABS: Glucose Point of Care 82 mg/dl (65-105)
[2023-06-14] MEDS: carvediloL 6.25 MG TABLET PO ×2 (08:50→20:16)
[2023-06-14] MEDS: guaiFENesin 12 HR 600 MG TABCR 1200 MG PO ×2 (08:51→20:16)
[2023-06-14] MEDS: AMIODARONE HCL 200 MG TABLET PO (08:51)
[2023-06-14] MEDS: ENOXAPARIN 40 MG/0.4 ML SYRINGE SUB-Q (08:52)
[2023-06-14] MEDS: INSULIN ASPART (*BKC) 100 UNITS/ML SUB-Q ×3 (08:52→17:22)
[2023-06-14 11:57] LABS: Glucose Point of Care 137 mg/dl (65-105)
--- NOTE | 2023-06-14 14:08 | P.PNIM_ITS ---
Progress Note: A&P Assessment and Plan (1) Nausea vomiting and diarrhea: Code(s): R11.2 - Nausea with vomiting, unspecified; R19.7 - Diarrhea, unspecified Status: Acute Assessment and Plan: 06/12/23: * Patient given 2L NS for hydration while in the ER * Will start IVF for hydration as he is unable to keep adequate food/fluid down. * Zofran ordered for nausea * Advance diet as tolerated to a diabetic diet 06/13/23: * Patient able to hold food and fluid down today. Nausea and vomiting has subsided. He still is reporting diarrhea. * Will check a C-diff * Advance diet as tolerated. 06/14: Patient tolerating oral intake without nausea vomiting. (2) CYNDY (acute kidney injury): Code(s): N17.9 - Acute kidney failure, unspecified Status: Acute Assessment and Plan: 06/12/23: * Initial BUN 47/ Creatinine 2.90, eGFR 21 * Baseline Creatinine 1.10 and baseline eGFR >60 * Today's BUN 41 and creatinine 2.10 * Patient received 2L NS while in ER for dehydration * Continue to trend labs * Holding Lasix, spironolactone, potassium chloride, and atorvastatin for now 06/13/23: * BUN 34, Creatinine 1.90, eGFR 34 * Will discontinue IVF today * Continue to hold meds as stated above. * Continue to trend labs. 06/14: * BUN 27 creatinine 1.7 estimated creatinine clearance 34 estimated GFR 38. * Will restart diuretics starting with Lasix today and adding spironolactone back tomorrow. * Recheck labs in the morning. (3) Colorectal cancer: Code(s): C19 - Malignant neoplasm of rectosigmoid junction Status: Chronic Assessment and Plan: 06/12/23: * Patient was suppose to start radiation today, however became ill. * CT of the abdomen/chest/pelvis revealing wall thickening of the rectum with luminal narrowing, lytic lesion in the pelvis and spine suspicious for metastatic disease. * Will check fecal occult blood test considering history of GI bleed and report of a blood tinged emesis at home. 06/13/23: * Fecal occult blood positive, Consider GI consult if labs start to drop or active signs of bleeding. * Continue to monitor for signs of active bleeding. Currently VSS, however blood pressure is lower than his baseline. * Reporting liquid stools, order placed last evening for C-diff, remains uncollected. 06/14: * occult stool due to known mass, no signs of significant active bleed * sounds like liquid stool is all that escapes around mass and has been this way for a while now (4) Hypothyroidism: Code(s): E03.9 - Hypothyroidism, unspecified Status: Acute Assessment and Plan: 06/12/23: * TSH 95.400, Free T4 0.35 * Patient started on Synthroid 150 mcg po daily * Will need to follow up with PCP on an outpatient basis as this is a new diagnosis. 06/13/23: * Continue with current treatment plan (5) DM2 (diabetes mellitus, type 2): Code(s): E11.9 - Type 2 diabetes mellitus without complications Status: Chronic Assessment and Plan: 06/12/23: * BG ranging 140-149 * Accu checks AC/HS * DM diet ordered * Correctional insulin low dose SSI ordered * Mealtime insulin ordered 5u AC/HS * Lantus 15 units ordered for tonight * Hgb A1C ordered 06/13/23: * BG ranging 96-135 * Hgb A1C 7.5 which is improved for previous as he was 9.1 * Continue with current treatment plan (6) Hypertrophic cardiomyopathy: Code(s): I42.2 - Other hypertrophic cardiomyopathy Status: Chronic Assessment and Plan: 06/12/23: * Patient has pacemaker and is AV paced
--- NOTE | 2023-06-14 14:08 | PM.IMPN ---
Progress Note: A&P Assessment and Plan (1) Nausea vomiting and diarrhea: Code(s): R11.2 - Nausea with vomiting, unspecified; R19.7 - Diarrhea, unspecified Status: Acute Assessment and Plan: 06/12/23: Patient given 2L NS for hydration while in the ER Will start IVF for hydration as he is unable to keep adequate food/fluid down. Zofran ordered for nausea Advance diet as tolerated to a diabetic diet 06/13/23: Patient able to hold food and fluid down today. Nausea and vomiting has subsided. He still is reporting diarrhea. Will check a C-diff Advance diet as tolerated. 06/14: Patient tolerating oral intake without nausea vomiting. (2) CYNDY (acute kidney injury): Code(s): N17.9 - Acute kidney failure, unspecified Status: Acute Assessment and Plan: 06/12/23: Initial BUN 47/ Creatinine 2.90, eGFR 21 Baseline Creatinine 1.10 and baseline eGFR >60 Today's BUN 41 and creatinine 2.10 Patient received 2L NS while in ER for dehydration Continue to trend labs Holding Lasix, spironolactone, potassium chloride, and atorvastatin for now 06/13/23: BUN 34, Creatinine 1.90, eGFR 34 Will discontinue IVF today Continue to hold meds as stated above. Continue to trend labs. 06/14: BUN 27 creatinine 1.7 estimated creatinine clearance 34 estimated GFR 38. Will restart diuretics starting with Lasix today and adding spironolactone back tomorrow. Recheck labs in the morning. 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 CT of the abdomen/chest/pelvis revealing wall thickening of the rectum with luminal narrowing, lytic lesion in the pelvis and spine suspicious for metastatic disease. Will check fecal occult blood test considering history of GI bleed and report of a blood tinged emesis at home. 06/13/23: Fecal occult blood positive, Consider GI consult if labs start to drop or active signs of bleeding. Continue to monitor for signs of active bleeding. Currently VSS, however blood pressure is lower than his baseline. Reporting liquid stools, order placed last evening for C-diff, remains uncollected. 1/17: occult stool due to known mass, no signs of significant active bleed sounds like liquid stool is all that escapes around mass and has been this way for a while now (4) Hypothyroidism: Code(s): E03.9 - Hypothyroidism, unspecified Status: Acute Assessment and Plan: 06/12/23: TSH 95.400, Free T4 0.35 Patient started on Synthroid 150 mcg po daily Will need to follow up with PCP on an outpatient basis as this is a new diagnosis. 06/13/23: Continue with current treatment plan (5) DM2 (diabetes mellitus, type 2): Code(s): E11.9 - Type 2 diabetes mellitus without complications Status: Chronic Assessment and Plan: 06/12/23: BG ranging 140-149 Accu checks AC/HS DM diet ordered Correctional insulin low dose SSI ordered Mealtime insulin ordered 5u AC/HS Lantus 15 units ordered for tonight Hgb A1C ordered 06/13/23: BG ranging 96-135 Hgb A1C 7.5 which is improved for previous as he was 9.1 Continue with current treatment plan (6) Hypertrophic cardiomyopathy: Code(s): I42.2 - Other hypertrophic cardiomyopathy Status: Chronic Assessment and Plan: 06/12/23: Patient has pacemaker and is AV paced Carvedilol restarted Holding spironolactone and lasix due to CYNDY 06/13/23: Blood pressures are running more soft today, parameters placed on Carvedilol to hold if systolic less than 100. Continue to hold diuretics due to CYNDY 06/14: Restart diuretics this afternoon Echo shows 35-40% EF and grade 1 diastolic dysfunction on echo (7) Atrial fibrillation: Code(s): I48.91 - Unspecified atrial fibrillation Status: Chronic Assessment and Plan:
[2023-06-14 17:00] LABS: Glucose Point of Care 111 mg/dl (65-105)
[2023-06-14] MEDS: FUROSEMIDE 40 MG TABLET PO (17:22)
[2023-06-14 20:45] LABS: Glucose Point of Care 102 mg/dl (65-105)
[2023-06-15] VITALS (10 sets, daily range): BP systolic 111–124; BP diastolic 52–62; PULSE 60–67; RESP 16; TEMP 36.4–36.6; O2SAT 96–100
[2023-06-15 05:52] LABS: Hematocrit 32.1 % (42.0-52.0); Hemoglobin 9.6 g/dL (14.0-18.0); Mean Corpuscular HGB Conc 29.9 g/dl (32-36); Mean Corpuscular Hemoglobin 26.9 pg (26-34); Mean Corpuscular Volume 89.9 fl (80-100); Mean Platelet Volume 9.7 fl (7.4-10.4); Platelet Count Result 231 k/mm3 (150-375); Red Blood Count 3.57 M/mm3 (4.6-6.20); Red Cell Distribution Width 15.4 % (11.5-14.5); White Blood Count 7.2 K/mm3 (4.5-10.0)
[2023-06-15 06:16] LABS: Alanine Aminotransferase 67 U/L (6-50); Albumin Level 3.3 g/dL (3.5-5.1); Alkaline Phosphatase 83 U/L (38-126); Anion Gap 7 mmol/L (8-16); Aspartate Amino Transferase 69 U/L (17-59); Bilirubin,Total 0.4 mg/dL (0.2-1.3); Blood Urea Nitrogen 23 mg/dL (9-20); Calcium 8.3 mg/dL (8.4-10.2); Carbon Dioxide 25 mmol/L (22-30); Chloride 105 mmol/L (98-107); Estimated CRCL calculation 34 ml/min; Estimated Glomerular Filt Rate 38; Glucose 93 mg/dL (65-110); Potassium 3.9 mmol/L (3.4-5.0); Sodium 137 mmol/L (137-145)
[2023-06-15] MEDS: LEVOTHYROXINE SODIUM 150 MCG TABLET PO (06:28)
[2023-06-15 07:50] LABS: Glucose Point of Care 103 mg/dl (65-105)
[2023-06-15] MEDS: ATORVASTATIN 40 MG TABLET PO (08:56)
[2023-06-15] MEDS: guaiFENesin 12 HR 600 MG TABCR 1200 MG PO (08:57)
[2023-06-15] MEDS: FUROSEMIDE 40 MG TABLET PO (08:57)
[2023-06-15] MEDS: AMIODARONE HCL 200 MG TABLET PO (08:57)
[2023-06-15] MEDS: POTASSIUM CHLORIDE 20 MEQ ER TABLET PO (08:57)
[2023-06-15] MEDS: carvediloL 6.25 MG TABLET PO (08:57)
[2023-06-15] MEDS: ENOXAPARIN 40 MG/0.4 ML SYRINGE SUB-Q (08:58)
[2023-06-15] MEDS: SPIRONOLACTONE 50 MG TABLET PO (08:58)
[2023-06-15] MEDS: INSULIN ASPART (*BKC) 100 UNITS/ML SUB-Q ×2 (08:59→12:41)
[2023-06-15 12:09] LABS: Glucose Point of Care 147 mg/dl (65-105)
--- NOTE | 2023-06-15 12:28 | PM.DS ---
DS: Admitting Diagnosis Discharge Date 06/15/2023 Admitting Diagnosis fall, n/v/d, cyndy, colorectal cancer, hypertrophic cardiomyopathy, BARBIE, atrial fibrillation, DM2 DS: Discharge Diagnosis Discharge Diagnosis (1) Nausea vomiting and diarrhea: Code(s): R11.2 - Nausea with vomiting, unspecified; R19.7 - Diarrhea, unspecified Status: Acute (2) CYNDY (acute kidney injury): Code(s): N17.9 - Acute kidney failure, unspecified Status: Acute (3) Colorectal cancer: Code(s): C19 - Malignant neoplasm of rectosigmoid junction Status: Chronic (4) Hypothyroidism: Code(s): E03.9 - Hypothyroidism, unspecified Status: Acute (5) DM2 (diabetes mellitus, type 2): Code(s): E11.9 - Type 2 diabetes mellitus without complications Status: Chronic (6) Hypertrophic cardiomyopathy: Code(s): I42.2 - Other hypertrophic cardiomyopathy Status: Chronic (7) Atrial fibrillation: Code(s): I48.91 - Unspecified atrial fibrillation Status: Chronic (8) Obstructive sleep apnea: Code(s): G47.33 - Obstructive sleep apnea (adult) (pediatric) Status: Chronic (9) Fall: Code(s): W19.XXXA - Unspecified fall, initial encounter Status: Acute DS: Summary Hospital Course Hospital Course: Patient admitted to hospital with CYNDY due to dehydration from significant nausea/vomiting/diarrhea and fall at [facility] which prompted ER evaluation. Patient was rehydrated and diuretics were held. Patient has history for combined systolic and diastolic heart failure and was receiving IV fluids for a couple days so his arms and legs began to accumulate fluid, no respiratory difficulty. Diuretics were slowly restarted. IV fluids stopped and patient eating/drinking well with no further episodes of nausea/vomiting. Patient discharged back to nursing facility where he is snf care. Status at Discharge Cognitive/behavioral status at discharge: awake, alert, oriented and pleasant Functional status at discharge: uses cane/walker Overall status at discharge: patient is progressing back to baseline Time Spent with Patient Time attestation: Total time spent providing and/or coordinating discharge services: 40 minutes Time spent: Greater than 30 minutes Exam Narrative: GENERAL: Well-appearing, well-nourished, and in no acute distress. Obese. HEAD: Normocephalic, atraumatic. ENT:? Mucous membranes moist. CHEST: Clear to auscultation.? No respiratory distress. HEART: Regular rate and irregular rhythm. ? Normal peripheral pulses. ABDOMEN: Soft, nontender, somewhat distended, bowel sounds present EXTREMITIES: Normal range of motion. Upper and lower extremity distal peripheral edema noted, improving from yesterday SKIN: Warm dry normal color NEURO: Alert and oriented x3. PSYCH: Normal mood and affect DS: Data Data Completed and Pending Completed studies during hospitalization: Head CT, abdomen xray, chest xray, abdomen/pelvis CT Labs on day of discharge: Labs from last 24 hours 06/15/23 06/15/23 06/15/23 12:06 07:45 05:29 WBC 7.2 RBC 3.57 L Hgb 9.6 L Hct 32.1 L MCV 89.9 MCH 26.9 MCHC 29.9 L RDW 15.4 H Plt Count 231 MPV 9.7 Sodium 137 Potassium 3.9 Chloride 105 Carbon Dioxide 25 Anion Gap 7 L BUN 23 H Creatinine 1.70 H Estim Creat Clear Calc 34 Estimated GFR 38 L Glucose 93 POC Capillary Glucose 147 H 103 Calcium 8.3 L Total Bilirubin 0.4 AST 69 H ALT 67 H Alkaline Phosphatase 83 Total Protein 7.0 Albumin 3.3 L 06/14/23 06/14/23 20:41 16:53 WBC RBC Hgb Hct MCV MCH MCHC RDW Plt Count MPV Sodium Potassium Chloride Carbon Dioxide Anion Gap BUN Creatinine Estim Creat Clear Calc Estimated GFR Glucose POC Capillary Glucose 102 111 H Calcium Total Bilirubin AST ALT Alkaline Phosphata
--- NOTE | 2023-06-15 13:12 | PC.NURSE ---
On 06/15/23, the student, [Tila Valenzuela], provided care and completed [facility] documentation on this patient. I have reviewed the student's documentation and agree with the findings.
[2023-06-15 14:39] LABS: SARS-CoV-2 RNA PCR Negative (Negative)
--- NOTE | 2023-06-22 08:44 | IVDEFINITY ---
Prior to administration of IV Definity the patient was educated on the risks and benefits of the imaging enhancing agent including potential adverse side effects. The patient verbalized understanding. Allergies were verified. No exclusion criteria were identified and at least one of the following inclusion criteria were met: 1) physician request, 2) patient technically difficult to image (per the [place] [employer] guidelines of two or more segments not discernable within the apical view), or 3) questionable left ventricular function. ?
== END 2023-06-15 15:08 | DRG 641 ==
LOC: ANHED 06-12 01:56 → ANH2MED 06-12 02:42
PROVIDERS: Nurse Practitioner; Nurse Practitioner Acute Care; Admitting Provider Internal Medicine; Emergency Provider Emergency Medicine; PCP Internal Medicine; Visit Provider Internal Medicine
DX: E86.0 Dehydration (principal); N17.9 Acute kidney failure, unspecified; C19 Malignant neoplasm of rectosigmoid junction; I13.0 Hypertensive heart and chronic kidney disease with heart failure and stage 1 through stage 4 chronic kidney disease, or unspecified chronic kidney disease; I43 Cardiomyopathy in diseases classified elsewhere; I50.42 Chronic combined systolic (congestive) and diastolic (congestive) heart failure; K92.0 Hematemesis; W19.XXXA Unspecified fall, initial encounter; E03.9 Hypothyroidism, unspecified; E78.5 Hyperlipidemia, unspecified; E11.22 Type 2 diabetes mellitus with diabetic chronic kidney disease; G47.33 Obstructive sleep apnea (adult) (pediatric); I48.91 Unspecified atrial fibrillation; I95.9 Hypotension, unspecified; I95.1 Orthostatic hypotension; N18.9 Chronic kidney disease, unspecified; Z28.21 Immunization not carried out because of patient refusal; Z79.4 Long term (current) use of insulin; Z20.822 Contact with and (suspected) exposure to COVID-19; Z90.49 Acquired absence of other specified parts of digestive tract; Z87.891 Personal history of nicotine dependence; Z95.0 Presence of cardiac pacemaker; Z99.89 Dependence on other enabling machines and devices
CPT/HCPCS: 36415; 70450; 71045; 71250; 74018; 74176; 80053; 81003; 82274; 82550; 82948; 83036; 83605; 83690; 83735; 83880; 84100; 84145; 84439; 84443; 84484; 85025; 85027; 85610; 85730; 86850; 86900; 86901; 87040; 87635; 87637; 93005; 96361; 96374; 96375; 96376; 97110; 97161; 97165; 97530; 97535; 99285; A9270; C8929; C9113; G0378; J1650; J1815; J2405; J7030; Q9957

== ENCOUNTER 2024-11-25 15:25 | Inpatient (IN) | payer MEDICARE, SELFPAY ==
--- NOTE | ~2024-11-25 | XR_ITS ---
EXAMINATION: XR chest 2V Exam Date/Time: 11/25/2024 20:08 CDT HISTORY: diff breathing laying down; chronic cough Comparison: 03/22/2023. RESULT: Lines, tubes, and devices: Left chest pacer/AICD with intact leads. Lungs and pleura: Patchy subsegmental left basilar and subsegmental right basilar airspace disease. Cardiomediastinal silhouette: Stable. Other: No acute osseous or upper abdominal finding. IMPRESSION: Patchy bibasilar airspace disease may be secondary to infection or edema. Reviewed, dictated and finalized at location K.
--- NOTE | ~2024-11-25 | CT_ITS ---
EXAMINATION: CTA chest PE protocol DATE: 11/25/2024 22:30 INDICATION: chronic cough; sob when supine; dimer >2 TECHNIQUE: Computed tomography angiography (CTA) of the chest was performed with 100 mL Omnipaque-350 intravenous contrast timed to evaluate the pulmonary arteries. Coronal maximum intensity projection 3D-reconstructions were created by the technologist. The dose-length product (DLP) was 863.25 mGy-cm. Automated exposure control and iterative reconstruction technique were employed. COMPARISON: CT cap 06/11/2023. FINDINGS: Lung parenchyma and airways: Segmental bilateral lower lobe consolidative opacities with air bronchog cezar. Tree-in-bud and centrilobular nodular opacities noted adjacent to the right lower lobe consolid ation. Pleura: Small left and trace right pleural fluid collections. Thoracic inlet, axillae and chest wall: No thyroid mass. Symmetric bilateral gynecomastia. Left chest pacer/AICD. Thoracic aorta: Dilation of the ascending aorta measuring up to 4.1 cm. No dissection. Mediastinum: Dilated central pulmonary arteries as can be seen with pulmonary hypertension. Enlarged precarinal lymph node.. Heart and pericardium: Mitral and aortic valve calcifications. Coronary artery calcifications: Moderate. Upper abdomen: Status post cholecystectomy. Right adrenal adenoma.. Bones: No acute osseous finding. Pulmonary arteries: Study quality: Adequate. No pulmonary emboli detected. IMPRESSION: No CT evidence of acute pulmonary embolus. Bilateral lower lobe pneumonia. Mediastinal lymphadenopathy. Ascending aortic ectasia. Reviewed, dictated and finalized at location K.
--- OUTSIDE RECORDS SUMMARY | 2024-11-25 15:28 | XMS_ITS | Clinical Summary ---
Author Organization [facility] Address [address] [place] [id number] Care Team Providers Care Starch Treating Assistant Name Role Phone Morro Caba MD Primary Care Provider [phone] Shanice Schmidt MD Unavailable [phone] Johny Davis MD Unavailable [phone] Rere Méndez MD Unavailable Sara Bell MD PhD Unavailable [phone] Allergies Active Allergy Reactions Criticality Noted Date Comments Aspirin Other (See comments) Low Gi bleed Medications acetaminophen (TYLENOL) 325 mg tablet Take 2 tablets (650 mg total) by mouth every 6 (six) hours as needed for pain Active insulin lispro (HumaLOG, ADMELOG) 100 unit/mL vial for injection Inject 5 Units under the skin 3 (three) times a day with meals 10 mL 11/26/19 23 Active Additional Information Patient not taking.Reported on 08/03/2023 insulin lispro (HumaLOG, ADMELOG) 100 unit/mL vial for injectionIndicat ions:Diabetes Mellitus Inject 0-5 Units under the skin 3 (three) times a day with meals 10 mL 1 11/26/19 23 Active furosemide (LASIX) 40 mg tablet Take 1 tablet (40 mg total) by mouth 2 (two) times a day 60 tablet 1 11/26/19 23 Active atorvastatin (LIPITOR) 40 mg tablet Take 1 tablet (40 mg total) by mouth daily 30 tablet 1 11/26/19 23 Active Additional Information Patient not taking.Reported on 02/01/2024 potassium chloride (KLOR-CON) 20 mEq packet Take 1 packet (20 mEq total) by mouth daily Dissolve each packet in at least 4 ounces (120 mL) of cold water or other beverage prior to administration. Active bismuth subsalicylate (PEPTO-BISMOL) suspension Take 15 mL by mouth 3 (three) times a day as needed for indigestion Active SSD 1 % cream 01/08/20 23 Active insulin glargine 100 unit/mL (3 mL) pen for injection Inject 5 Units under the skin 3 (three) times a day with meals 03/11/20 23 Active hydrocortisone 1 % cream 03/31/20 23 Active oxyCODONE-acetam inophen (PERCOCET) 5-325 mg per tabletIndication s:Pain,Postopera tive Acute Pain Take 1 tablet by mouth every 8 (eight) hours as needed for pain 12 tablet 04/17/20 23 Active insulin aspart (NovoLOG) 100 unit/mL (3 mL) pen for injection Inject 5 Units under the skin 3 (three) times a day with meals 06/05/19 24 Active levothyroxine (SYNTHROID) 150 mcg tablet 06/16/19 24 Active mupirocin (BACTROBAN) 2 % ointment 04/26/20 23 Active lidocaine-priloc melisa creamIndications :Administration of Local Anesthesia Rub on port 45 minutes prior to lab draw 30 g 3 07/11/19 24 Active dexAMETHasone (DECADRON) 4 mg tabletIndication s:Rectosigmoid cancer (HCC) Take 2 tablets (8 mg total) by mouth once daily on days 2 and 3 of each treatment cycle. 24 tablet 2 07/11/19 24 Active ondansetron (ZOFRAN) 8 mg tabletIndication s:Rectosigmoid cancer (HCC) Take 1 tablet (8 mg total) by mouth every 8 (eight) hours as needed for nausea Use if prochlorperazine does not stop nausea. 24 tablet 3 07/11/19 24 Active prochlorperazine (Compazine) 10 mg tabletIndication s:Rectosigmoid cancer (HCC) Take 1 tablet (10 mg total) by mouth every 6 (six) hours as needed for nausea or vomiting Use first for nausea. 120 tablet 3 07/11/19 24 Active guaiFENesin ER (MUCINEX) 600 mg 12 hr tablet Take 2 tablets (1,200 mg total) by mouth 2 (two) times a day Active glucagon 1 mg kit Inject into the muscle as instructed Active simethicone (GAS-X) 125 mg capsule Take 1 capsule (125 mg total) by mouth 4 (four) times a day as needed for flatulence 60 capsule 1 08/15/19 24 Active spironolactone (ALDACTONE) 50 mg tablet Take 1 tablet (50 mg total) by mouth daily 09/04/19 24 Active carvediloL (COREG) 6.25 mg tablet Take 1 tablet (6.25 mg total) by mouth 2 (two) times a day with meals 03/06/20 24 Active Unifine SafeControl 30 gauge x 08/11 needle 01/14/20 24 Active amiodarone (PACERONE) 200 mg tablet Take 1 tablet (200 mg total) by mouth daily 02/23/20 24 Active BASAGLAR 100 unit/mL (3 mL) pen for injection 01/28/[address] (PROTONIX) 20 mg EC tablet 05/13/20 24 Active Active Problems Problem Noted Date Diagnosed Date Anemia in stage 4 chronic kidney disease 025 Chronic kidney disease-mineral and bone disorder 07/22/2024 Primary hypertension 03/19/2024 Type 2 diabetes mellitus wit h stage 4 chronic kidney disease, with long-term current use of insulin 03/19/2024 Nephrolithiasis 03/19/2024 Dehydration 09/19/2023 Secondary malignant neoplasm of bone 07/27/2023 Systolic congestive heart fa ilure, unspecified HF chronicity 07/27/2023 Chronic renal disease, stage IV 07/27/2023 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 Partially obstructing. Associated with intermittent bleeding and constipation. I reviewed his most recent CT scan abdomen and pelvis (noncontrast). Will obtain CEA. Referral to colorectal surgeon. Referral to oncologist. Plan of care discussed with patient and his daughter who accompanied him for the visit. Hematochezia 01/27/2023 Acute lower GI bleeding 01/16/2023 Assessment & Plan (03/15/2023 10:17 AM CDT): Due to partially obstructing sigmoid colon cancer. No further bleeding reported at this time. Defibrillator discharge 11/16/2022 Automatic implantable cardiac defibrillator in s itu 09/21/2022 Overview (09/21/2022): Medtronic [place] Dual ICD. Dx; VF Arrest, High Grade AVB. DOI-09/21/2022-Kahanda. Leong. Carelink remote monitoring. Cardiac arrest 09/13/2022 Nonrheumatic aortic valve stenosis 03/31/2022 Syncope 02/15/2022 HOCM (hypertrophic obstructive cardiomyopathy) 0 02/15/2022 Ventricular tachycardia 02/15/2022 Encounters Date Type Department Care Team Description 11/12/2024 Orders Only [facility] [address] [place] [address] 5 [place] [address] Sara Bell MD PhD 11/11/2024 1:00 PM CDT Office Visit [facility] [address] [place] [address] Floor 5 [place] [address] Sara Bell MD PhD Malignant neoplasm of sigmoid colon (HCC) (Primary Dx) 11/11/2024 12:00 PM CDT Lab [facility] [address] [place] [address] Floor 5 [place] [address] Malignant neoplasm of sigmoid colon (HCC) 11/11/2024 10:30 AM CDT Lab [facility] - Lab Collection [facility] Floor 5 [place] [address] Malignant neoplasm of sigmoid colon (HCC) 11/11/2024 9:18 AM CDT - 11/11/2024 11:59 PM CDT Hospital Encounter [facility] - [place] [address] [facility] [place] Floor 8 [place] [address] Malignant neoplasm of sigmoid colon (HCC) Discharge Disposition: Discharge to home or self care 09/24/2024 10:30 AM CDT Office Visit [facility] [address] [place] [phone] Robert Peterson MD HOCM (hypertrophic obstructive cardiomyopathy) (HCC) (Primary Dx); Nonrheumatic aortic valve stenosis; Systolic congestive heart failure, unspecified HF chronicity (HCC) 09/24/2024 7:45 AM CDT Ancillary Procedure [facility] [address] [facility] [address], [place] [address] VF (ventricular fibrillation) (HCC) (Primary Dx); CHB (complete heart block) (HCC); Cardiac arrest (HCC); Automatic implantable cardiac defibrillator in situ 09/24/2024 Telephone [facility] [address] [place] [phone] Robert Peterson MD Request for Med List from Last 3 Months Surgical History Surgery Date Site/Laterality Comments CHOLECYSTECTOMY BACK SURGERY COLONOSCOPY 03/09/2023 last colonoscopy patient states about 40 years ago. CARDIAC DEFIBRILLATOR PLACEMENT 08/27/2022 - 09/25/2022 Medical History Medical History Date Comments Syncope Hypertension Diabetes mellitus (HCC) CHF (congestive heart failure) (HCC) BARBIE (obstructive sleep apnea) AVB (atrioventricular block) Bradyarrhythmia Cardiac arrest (HCC) NSTEMI (non-ST elevated myocardial infarction) ( HCC) CAD (coronary artery disease) PONV (postoperative nausea and vomiting) Ventricular fibrillation (HCC) p er [place] Records Hyperlipidemia per [place] Records Type 2 diabetes mellitus (HCC) Family History Medical History Relation Name Comments Lung cancer Brother 1 Lung cancer Brother 2 Colon cancer Brother 3 Emphysema Father Diabetes Mother Stroke Mother pacemaker Mother Heart disease Other Stroke Other Relation Name Status Comments Brother 1 Brother 2 Brother 3 Father Mother Other Social History Tobacco Use Types Packs/Day Years Used Date Smoking Tobacco: Former Cigarettes Q uit: 1982 Passive Smoke Exposure: Past Tobacco Cessation:Counseling Given: Not Answered Social Connection and Isolat ion Panel [NHANES] Answer Date Recorded In a typical week, how many times do you talk on the phone with family, friends, or neighbors? Three times a week 01/17/2023 How often do you get togethe r with friends or relatives? More than three times a week 01/17/2023 How often do you attend chur ch or sabianist services? Never 01/17/2023 Do you belong to any clubs o r organizations such as orthodoxy groups, unions, fraternal or athletic groups, or school groups? No 01/17/2023 How often do you attend meet ings of the clubs or organizations you belong to? Never 01/17/2023 Are you , , di vorced, , never , or living with a partner? 01/17/2023 AUDIT-C Answer Date Recorded Q1: How often do you have a drink containing alcohol? Never 05/15/2023 Q2: How many drinks containi ng alcohol do you have on a typical day when you are drinking? Patient does not drink Q3: How often do you have si x or more drinks on one occasion? Never 05/15/2023 Overall Financial Resource Strain (CARDIA) Answe r Date Recorded How hard is it for you to pa y for the very basics like food, housing, medical care, and heating? Not hard at all 01/17/2023 Hunger Vital Sign Answer Date Recorded Within the past 12 months, y ou worried that your food would run out before you got the money to buy more. Never true 01/18/20 23 Within the past 12 months, t he food you bought just didn't last and you didn't have money to get more. Never true 01/17/2023 PRAPARE - Transportation Answer Date Re corded In the past 12 months, has l ack of transportation kept you from medical appointments or from getting medications? No 12/28 In the past 12 months, has l ack of transportation kept you from meetings, work, or from getting things needed for daily living? No 01/17/2023 Housing Stability Vital Sign Answer Sander e Recorded In the last 12 months, was t here a time when you were not able to pay the mortgage or rent on time? No 01/17/2023 In the last 12 months, how many places have you lived? 2 01/17/2023 In the last 12 months, was t here a time when you did not have a steady place to sleep or slept in a chcf (including now)? No 01/17/2023 Personal Safety Answer Date Recorded Have you ever been in or are you currently in a harmful physical or emotional relationship or is someone making you feel afraid or unsafe? Denies 04/17/2023 Sex and Gender Information Value Date Recorded Sex Assigned at Not on file Legal Sex Male 9:01 PM ONCOLOGY PHYSICIAN Gender Identity Not on file Sexual Orientation Not on file Obstetrics History Last Filed Vital Signs Vital Sign Reading Time Taken Comments Blood Pressure 135/70 11/11/2024 10:39 AM CDT Pulse 62 11/11/2024 10:35 AM CDT Temperature 36.3 C (97.4 F) 11/11/2024 10:35 AM CDT Respiratory Rate 16 11/11/2024 10:35 AM CDT Oxygen Saturation 98% 11/11/2024 10:35 AM CDT Inhaled Oxygen Concentration - - Weight 88.5 kg (195 lb) 11/11/2024 10:35 AM CDT Height 175.3 cm (5' 9) 09/24/2024 10:29 AM CDT Body Mass Index 28.8 09/24/2024 10:29 AM CDT Plan of Treatment Health Maintenance Due Date Last Done Comments Albumin Creatinine Ratio, Urine 1938 Depression Screening 1938 Dilated Eye Exam 1938 Foot Exam 1938 DTaP/Tdap/Td Vaccine (1 - Tdap) 1949 Hepatitis B Screening 1956 Pneumococcal vaccine 65+ (1 of 2 - PCV) 1957 Zoster Vaccine (1 of 2) 1957 Well Visit 65+ 2003 Hemoglobin A1C 07/20/2023 01/17/2023, 06/2 10/2022, 09/13/2022 Lipid Panel 09/16/2023 09/15/2022 Fall Risk Assessment 05/15/2024 05/15/2023, 04/17/20 23 Influenza Vaccine (Season Ended) 2025 eGFR 11/11/2025 11/11/2024, 03/0 09/2024, 05/01/2024, Additional history exists Medical Devices Implanted Type Area Manager Track Device Identifier Shelf Expiration Date Model / Serial / Lot [employer] Inc [place] Dr Icd Mri Surescan Df4 [id number] - [id number] - [id number] Implanted:Qty: 1 on 09/21/2022 by Willian Metz MD at [facility] ICD Left: Infraclavicular Anterior Chest Wall Medtronic Inc [id number] 11/24/2023 [id number] / [id number] / Medtronic Inc Sprint Quattro Secure 62cm Tripolar Screw In Extendable [id number] - [id number] - [id number] Implanted:Qty: 1 on 09/21/2022 by Willian Metz MD at [facility] Lead Right: Ventricle Medtronic Inc [id number] 03/30/2024 6 [id number] / [id number] / Medtronic Inc Capsurefix Novus 6.2fr 2mm 52cm Bipolar Screw In Implantable Latex Free 5076-52 - [id number] - [id number] Implanted:Qty: 1 on 09/21/2022 by Willian Metz MD at [facility] Lead Right: Atrial Appendage Medtronic Inc [id number] 06/16/2024 5076-52 / [id number] 6V / Bard Peripheral Vascular Powerport Clearvue Airguard 8fr 1 Lumen Lightweight Intermediate Latex Free [id number] - [id number] Implanted:Qty: 1 on 04/17/2023 by Johny Davis MD at [facility] Right: Chest Bard Peripheral Vascular 01/27/2024 [id number] / [id number] Procedures Procedure Name Priority Date/Time Associated Diagnosis Comments EGFR Routine 11/11/2024 10:21 AM CDT Malignant neoplasm of sigmoid colon (HCC) DIFFERENTIAL AUTO Routine 11/11/2024 10: 21 AM CDT Malignant neoplasm of sigmoid colon (HCC) CBC WITH AUTO DIFFERENTIAL Routine 11/11/2024 10:21 AM CDT Malignant neoplasm of sigmoid colon (HCC) COMPREHENSIVE METABOLIC PANEL Routine 11/11/2024 10:21 AM CDT Malignant neoplasm of sigmoid colon (HCC) CEA Routine 11/11/2024 10:21 AM CDT Malignant neoplasm of sigmoid colon (HCC) CT CHEST ABDOMEN PELVIS W CONTRAST Schedule ADRIANA, Read ADRIANA (Appt Today, Awaiting Results) 11/11/2024 9:57 AM CDT Malignant neoplasm of sigmoid colon (HCC) POCT CREATININE - DEVICE Routine 11/11/2024 9:47 AM CDT DEVICE CHECK - REMOTE Routine 09/30/2024 12:40 PM CDT VF (ventricular fibrillation) (HCC) Syncope, unspecified syncope type CHB (complete heart block) (HCC) HEMOGLOBIN A1C Add-On 01/17/2023 9:42 AM CDT LIPID PANEL Routine 09/15/2022 2:25 AM CDT from Last 3 Months or Most Recently Relevant to Health Maintenance Results * (ABNORMAL) eGFR (11/11/2024 10:21 AM CDT) eGFR 33(L) >=60 mL/min/1. 73 m2 Comment: Interpretive Data Reference Interval Normal >/= 90 mL/min/1.73m2 Mildly decreased* 60 - 89 mL/min/1.73m2 Mildly to moderately decreased 45 - 59 mL/min/1.73m2 Moderately to severely decreased 30 - 44 mL/min/1.73m2 Severely decreased 15 - 29 mL/min/1.73m2 Kidney Failure < 15 mL/min/1.73m2 *Relative to young adult level Estimated glomerular filtration rate is determined by the 2020 CKD-EPI equation recommended by the National Kidney Foundation (A Unifying Approach to GFR Estimation: Recommendations of the NKF-ASK Task Force on Reassessing the Inclusion of Race in Diagnosing Kidney Disease, JASN 2020). The CKD-EPI equation should not be used for patients with unstable renal function and has not been validated in children and those over 70. Current interpretive data was last reviewed 2021. Blood 11/11/2024 10:2 1 AM CDT 11/11/2024 10:23 AM CDT us Robert Baldwin MD PhD LAB BLOOD ORDERABLES Final Result [facility] [place] [address] * Differential, auto (11/11/2024 10:21 AM CDT) Neutrophil abs 4.83 1.50 - 6.50 K/cumm Comment:Testing performed by : [facility], [address] [place], [place] [phone] Lymphocyte abs 1.59 0.80 - 3.30 K/cumm [facility] Comment:Testing performed by : [facility], [address] [place], [place] [phone] Monocyte abs 0.64 0.20 - 0.80 K/cumm [facility] Comment:Testing performed by : [facility], [address] [place], [place] [phone] Eosinophil abs 0.40 0.00 - 0.50 K/cumm [facility] Comment:Testing performed by : [facility], [address] [place] [phone] Basophil abs 0.07 0.00 - 0.10 K/cumm [facility] Comment:Testing performed by : [facility], [address] [place] [phone] Neutrophil pct 64.2 % [facility] Comment: Interpretive Data Percent cell count reference ranges are not reported, since discordance with absolute values may lead to misinterpretation of CBC data. Current Interpretive Data was last revised on 2017. Testing performed by: [facility], [address] [place] [phone] Lymphocyte pct 21.1 % [facility] Comment: Interpretive Data Percent cell count reference ranges are not reported, since discordance with absolute values may lead to misinterpretation of CBC data. Current Interpretive Data was last revised on 2017. Testing performed by: [facility], [address] [place] [phone] Monocyte pct 8.4 % [facility] Comment: Interpretive Data Percent cell count reference ranges are not reported, since discordance with absolute values may lead to misinterpretation of CBC data. Current Interpretive Data was last revised on 2017. Testing performed by: [facility], [address] [place] [phone] Eosinophil pct 5.3 % [facility] Comment: Interpretive Data Percent cell count reference ranges are not reported, since discordance with absolute values may lead to misinterpretation of CBC data. Current Interpretive Data was last revised on 2017. Testing performed by: [facility], [address] [place] [phone] Basophil pct 1.0 % [facility] MCINTYRE Comment: Interpretive Data Percent cell count reference ranges are not reported, since discordance with absolute values may lead to misinterpretation of CBC data. Current Interpretive Data was last revised on 2017. Testing performed by: [facility], [address] [place] [phone] Blood 11/11/2024 10:2 1 AM CDT 11/11/2024 10:24 AM CDT us Robert Baldwin MD PhD LAB BLOOD ORDERABLES Final Result [facility] [place] [address] * (ABNORMAL) CBC with auto differential (11/11/2024 10:21 AM CDT) WBC 7.52 3.80 - 9.90 K/cumm Comment:Testing performed by : [facility], [address] [place] [phone] Hgb 10.3(L) 13.0 - 17.5 g/dL [facility] Comment:Testing performed by : [facility], [address] [place], [place] [phone] Hct 32.5(L) 38.9 - 50.3 % [facility] Comment:Testing performed by : [facility], [address] [place], [place] [phone] Plt 273 150 - 400 K/cumm [facility] Comment:Testing performed by : [facility], [address] [place], [place] [phone] MPV 7.2 6.8 - 10.4 fL [facility] Comment:Testing performed by : [facility], [address] [place], [place] [phone] RBC 4.14(L) 4.30 - 5.80 M/cumm [facility] Comment:Testing performed by : [facility], [address] [place], [place] [phone] MCV 78.6(L) 81.3 - 96.4 fL [facility] Comment:Testing performed by : [facility], [address] [place], [place] [phone] MCH 24.9(L) 27.1 - 33.3 pg [facility] Comment:Testing performed by : [facility], [address] [place] [address] MCHC 31.7(L) 32.3 - 35.7 g/dL [facility] Comment:Testing performed by : [facility], [address] [place] [address] RDW CV 15.4(H) 11.1 - 14.9 % [facility] Comment:Testing performed by : [facility], [address] [place] [address] NRBC abs 0.00 0.00 - 0.01 K/cumm [facility] Comment:Testing performed by : [facility], [address] [place] [address] Blood 11/11/2024 10:2 1 AM CDT 11/11/2024 10:24 AM CDT us Robert Baldwin MD PhD LAB BLOOD ORDERABLES Final Result Performing Organization Address [facility] de Phone Number [facility] [place] [address] * CEA (11/11/2024 10:21 AM CDT) [facility] CEA 4.4 <=5.0 ng/mL Comment: Interpretive Data: Reference Range: Non-Smokers: 0.0 5.0 ng/mL Smokers: 0.0 6.5 ng/mL The Louis CEA assay procedure was used. Results from different manufacturers or methods may not be comparable. Serial testing should be performed using the same method. Current interpretive data was last revised 2021. Blood 11/11/2024 10:2 1 AM CDT 11/11/2024 11:06 AM CDT Robert Baldwin MD PhD LAB BLOOD ORDERABLES Final Result Performing Organization Address [facility] de Phone Number [facility] [place] [address] * (ABNORMAL) Comprehensive metabolic panel (11/11/2024 10:21 AM CDT) [facility] Sodium 138 135 - 145 mmol/L Potassium, pl 4.2 3.3 - 4.9 mmol/L [facility] Chloride 103 97 - 110 mmol/L [facility] CO2 25 22 - 32 mmol/L [facility] Anion gap 10 2 - 15 mmol/L [facility] BUN 31(H) 6 - 25 mg/dL [facility] Creatinine 1.95(H) 0.80 - 1.30 mg/dL [facility] Glucose 117 70 - 199 mg/dL [facility] Comment: Interpretive Data Fasting glucose >/= 126 mg/dl is diagnostic for diabetes. Fasting is defined as no caloric intake for at least 8 hours. Fasting glucose between 100 mg/dl to 125 mg/dl is diagnostic of prediabetes. In a patient with classic symptoms of hyperglycemia or hyperglycemic crisis, a random glucose >/= 200 mg/dl is diagnostic for diabetes. In the absence of unequivocal hyperglycemia, results should be confirmed by repeat testing. The classification and Diagnosis of Diabetes Diabetes Care 2021; 46: S19-S40. Current interpretive data was last revised 2022. Calcium 9.0 8.5 - 10.3 mg/dL [facility] Bilirubin, total 0.4 0.1 - 1.2 mg/dL [facility] Protein, pl 7.4 6.5 - 8.5 g/dL [facility] Albumin 3.8 3.5 - 5.0 g/dL [facility] Alk phos 89 40 - 130 Units/L [facility] ALT 9 7 - 55 Units/L [facility] AST 17 10 - 50 Units/L [facility] Blood 11/11/2024 10:2 1 AM CDT 11/11/2024 10:23 AM CDT us Robert Baldwin MD PhD LAB BLOOD ORDERABLES Final Result Performing Organization Address City/State/[facility] Co de Phone Number [facility] [place] [address] * CT Chest Abdomen Pelvis W Contrast (11/11/2024 9:57 AM CDT) Anatomical Region Laterality Modality Body N/A Computed Tomogra phy 11/11/2024 10:1 9 AM CDT Impressions 11/11/2024 10:19 AM CDT 1. Unchanged rectosigmoid thickening and left iliac bone lytic lesion. 2. No anesthetic disease in the chest or disease progression within the abdomen/pelvis. 3. Unchanged 6 mm right ureterovesical junction stone within the bladder without hydroureteronephrosis. Electronically signed by: Ricardo Moreland M.D. Narrative 11/11/2024 10:19 AM CDT EXAMINATION: Computed tomography of the chest, abdomen and pelvis with intravenous contrast HISTORY: Colon cancer surveillance TECHNIQUE: Transaxial computed tomographic images of the chest, abdomen and pelvis were obtained with intravenous contrast according to the standard protocol after the uneventful administration of 69 mL Opti-Ray 350 intravenous contrast. COMPARISON: 07/31/2024 and 05/01/2024 FINDINGS: Chest: Scattered calcified granulomas. No suspicious pulmonary nodules, pleural effusion, pneumothorax, pneumonia, or pulmonary edema. Left subclavian pacemaker leads terminate within the right atrium and right ventricle. No supraclavicular, axillary, mediastinal, or hilar lymphadenopathy. Normal heart size with coronary artery calcifications but no pericardial effusion. No pulmonary embolism. Normal caliber thoracic aorta and esophagus. Abdomen/Pelvis: No focal liver lesion or intrahepatic ductal dilation. The gallbladder is surgically absent. The common bile duct is normal caliber. The portal vein is patent spleen, pancreas, and left adrenal gland are normal. Mild nodularity of the lateral limb of the right adrenal gland is unchanged. Scattered simple and hemorrhagic renal cysts in both kidneys without hydronephrosis. Small nonobstructing left lower pole renal stone is unchanged. The stomach and duodenum are normal. There is a 6 mm stone in the urinary bladder at the right ureterovesical junction without hydroureter or hydronephrosis, unchanged. A left-sided bladder stone seen on the prior exam is no longer present. The prostate gland is mildly enlarged. Unchanged rectosigmoid junction colonic thickening. Colonic diverticulosis and moderate volume stool throughout the colon without obstruction or inflammation. The appendix is normal. Small bowel loops are normal caliber. Nonenlarged retroperitoneal lymph nodes are unchanged, for example a 9 mm left para-aortic lymph node on series 2 image 188. No new lymphadenopathy, free fluid, or free intraperitoneal air. Moderate diffuse atherosclerotic calcification without aneurysm. A 1.9 cm left posterior iliac bone lesion with soft tissue component is unchanged. Extensive degenerative changes of the thoracolumbar spine with unchanged lytic foci which could either be related to metastatic disease or demineralization. Procedure Note Ricardo Moreland MD - 11/11/2024 EXAMINATION: Computed tomography of the chest, abdomen and pelvis with intravenous contrast HISTORY: Colon cancer surveillance TECHNIQUE: Transaxial computed tomographic images of the chest, abdomen and pelvis were obtained with intravenous contrast according to the standard protocol after the uneventful administration of 69 mL Opti-Ray 350 intravenous contrast. COMPARISON: 07/31/2024 and 05/01/2024 FINDINGS: Chest: Scattered calcified granulomas. No suspicious pulmonary nodules, pleural effusion, pneumothorax, pneumonia, or pulmonary edema. Left subclavian pacemaker leads terminate within the right atrium and right ventricle. No supraclavicular, axillary, mediastinal, or hilar lymphadenopathy. Normal heart size with coronary artery calcifications but no pericardial effusion. No pulmonary embolism. Normal caliber thoracic aorta and esophagus. Abdomen/Pelvis: No focal liver lesion or intrahepatic ductal dilation. The gallbladder is surgically absent. The common bile duct is normal caliber. The portal vein is patent spleen, pancreas, and left adrenal gland are normal. Mild nodularity of the lateral limb of the right adrenal gland is unchanged. Scattered simple and hemorrhagic renal cysts in both kidneys without hydronephrosis. Small nonobstructing left lower pole renal stone is unchanged. The stomach and duodenum are normal. There is a 6 mm stone in the urinary bladder at the right ureterovesical junction without hydroureter or hydronephrosis, unchanged. A left-sided bladder stone seen on the prior exam is no longer present. The prostate gland is mildly enlarged. Unchanged rectosigmoid junction colonic thickening. Colonic diverticulosis and moderate volume stool throughout the colon without obstruction or inflammation. The appendix is normal. Small bowel loops are normal caliber. Nonenlarged retroperitoneal lymph nodes are unchanged, for example a 9 mm left para-aortic lymph node on series 2 image 188. No new lymphadenopathy, free fluid, or free intraperitoneal air. Moderate diffuse atherosclerotic calcification without aneurysm. A 1.9 cm left posterior iliac bone lesion with soft tissue component is unchanged. Extensive degenerative changes of the thoracolumbar spine with unchanged lytic foci which could either be related to metastatic disease or demineralization. IMPRESSION: 1. Unchanged rectosigmoid thickening and left iliac bone lytic lesion. 2. No anesthetic disease in the chest or disease progression within the abdomen/pelvis. 3. Unchanged 6 mm right ureterovesical junction stone within the bladder without hydroureteronephrosis. Electronically signed by: Ricardo Moreland M.D. Robert Baldwin MD PhD IMG CT PROCEDURES Fi nal Result * (ABNORMAL) POCT creatinine (11/11/2024 9:47 AM CDT) Creatinine POC 2.1(H) 0.8 - 1.3 mg/dL Blood 11/11/2024 9:47 AM CDT 11/11/2024 9:47 AM CDT us Robert Baldwin MD PhD LAB POCT ORDERABLES - DEVICE Final Result [facility] MCINTYRE [facility] [place] [address] * DEVICE CHECK - REMOTE (09/30/2024 12:40 PM CDT) Anatomical Region Laterality Modality Other Narrative 10/11/2024 10:37 AM CDT [employer] [place] Dual ICD. Dx; VF Arrest, High Grade AVB. DOI-09/21/2022-Lashay. aSlo. [employer] remote monitoring. Routine DDD ICD Remote. Transmission attached. Battery status 3.00 V, 7.7 years remaining battery life to BRANDYN. Stable Charge time and Shock impedance. Stable lead impedances, pacing, and sensing threshold. Presenting rhythm: AP/LENS FINISHER AP-87.1 %, LENS FINISHER-99.8 %, (0) AT/AF episodes noted. (0) Ventricular tachy arrhythmias detected. Medication: Amiodarone 200 mg, carvedilol 6.25 mg Follow up: Office Pacemaker/ICD scheduled 12/04/24 [employer] remote 6 months Harry Castillo RN Result [facility] Robert Peterson MD CV CARDIAC SERVICES PROC EDURES Final Result * (ABNORMAL) Hemoglobin A1c (01/17/2023 9:42 AM CDT) Hgb A1C 8.0(H) 4.0 - 5.6 % CLA[facility] SRIVASTAVA Estimated Average Glucose 183 mg/dL CLA[facility] SRIVASTAVA Comment: The ADA recommends reporting an estimated Average Glucose (eAG) with all Hemoglobin A1c results using the equation derived from a study of 507 normal and diabetic adults. Minority populations were underrepresented and children were not included. (Diabetes Care 31:1855-0386, 2008). The eAG is not equivalent to a fasting glucose. Blood 01/17/2023 9:42 AM CDT 01/17/2023 9:42 AM CDT Result [facility] Komal Arenas MD LAB BLOOD ORDERABLES Final Re sult CLAIRE [id number] [address] Department of Laboratories [place] [id number] * Lipid panel (09/15/2022 2:25 AM CDT) Cholesterol 124 30 - 199 mg/dL CLAIRE SRIVASTAVA Comment: Interpretive Data Ages < or = 19 years Acceptable: <170 mg/dL Borderline high: 170-199 mg/dL High: >or= 200 mg/dL Ages > or = 20 years Desirable: <200 mg/dL Borderline high: 200-239 mg/dL High: >or= 240 mg/dL Literature References: 1. Expert Panel on Integrated Guidelines for Cardiovascular Health and Risk Reduction in Children and Adolescents. Pediatrics 2011;128:S213 2. NCEP Expert Panel. Circulation 2004;110:227 Current Interpretive Data was last revised on 2018. Triglycerides 103 <=149 mg/dL CLAIRE SRIVASTAVA Comment: Interpretive Data Ages < or = 9 years Acceptable: <75 mg/dL Borderline high: 75-99 mg/dL High: >or= 100 mg/dL Ages 10 to 20 years Acceptable: <90 mg/dL Borderline high: 90-129 mg/dL High: >or= 130 mg/dL Ages > or = 20 years Desirable: <150 mg/dL Borderline high: 150-199 mg/dL High: 200-499 mg/dL Very high: >or= 499 mg/dL Literature References: 1. Expert Panel on Integrated Guidelines for Cardiovascular Health and Risk Reduction in Children and Adolescents. Pediatrics 2011;128:S213 2. NCEP Expert Panel. Circulation 2004;110:227 Current Interpretive Data was last revised on 2018. HDL 41 >=40 mg/dL CLAIRE SRIVASTAVA Comment: Interpretive Data Ages < or = 19 years Acceptable: >45 mg/dL Borderline low: 40-45 mg/dL Low: <40 mg/dL Ages > or = 20 years Desirable: >or= 60 mg/dL Low: <40 mg/dL Literature References: 1. Expert Panel on Integrated Guidelines for Cardiovascular Health and Risk Reduction in Children and Adolescents. Pediatrics 2011;128:S213 2. NCEP Expert Panel. Circulation 2004;110:227 Current Interpretive Data was last revised on 2018. LDL, calculated 62 <=129 mg/dL CLAIRE SRIVASTAVA Comment: Interpretive Data Ages < or = 19 years Acceptable: <110 mg/dL Borderline high: 110-129 mg/dL High: >or= 130 mg/dL Ages > or = 20 years Optimal: <100 mg/dL Near optimal: 100-129 mg/dL Borderline high: 130-159 mg/dL High: >160 mg/dL Literature References: 1. Expert Panel on Integrated Guidelines for Cardiovascular Health and Risk Reduction in Children and Adolescents. Pediatrics 2011;128:S213 2. NCEP Expert Panel. Circulation 2004;110:227 Current Interpretive Data was last revised on 2018. Non-HDL Cholesterol 83 mg/dL CLAIRE SRIVASTAVA Comment: Interpretive Data Ages < or = 19 years Acceptable: <120 mg/dL Borderline high: 120-144 mg/dL High: >145 mg/dL Ages > or = 20 years When triglycerides are >200 mg/dL, Non-HDL cholesterol is a secondary target of therapy with treatment goals that are 30 mg/dL greater than the LDL cholesterol target. Literature References: 1. Expert Panel on Integrated Guidelines for Cardiovascular Health and Risk Reduction in Children and Adolescents. Pediatrics 2011;128:S213 2. NCEP Expert Panel. Circulation 2004;110:227 Current Interpretive Data was last revised on 2018. Chol/HDL ratio 3 CLAIRE SRIVASTAVA Blood 09/15/2022 2:25 AM CDT 09/15/2022 2:41 AM CDT Rick Fu APRN LAB BLOOD ORDERABL ES Final Result CLAIRE [address] Department [place] [address] from Last 3 Months or Most Recently Relevant to Health Maintenance Insurance [address] [place] [address] MEDICARE IDPA MEDICARE [employer] MEDICARE SUPPLEMENT INSURANCE IDPA [address] [place] [address] MEDICARE IDPA [employer] MEDICARE SUPPLEMENT INSURANCE Advance Directives For more information, please contact: [phone] Documents on File Type Date Recorded Patient Fire [employer] ADVANCE DIRECTIVE 04/06/2023 2:13 PM * Full Code (Latest Code Status on File) Date Activated Date Inactivated Comments 01/16/2023 4:04 PM 01/23/2023 11:02 PM * LIMITED - No CPR Date Activated Date Inactivated Comments 11/16/2022 2:16 PM 11/25/2022 6:20 PM Question Answer Comments Provide aggressive medical m anagement before a full cardiopulmonary arrest occurs. Use antibiotics, IV Fluids, and medical treatment unless specifically selected below: No intubation * Full Code Date Activated Date Inactivated Comments 11/16/2022 1:33 PM 11/16/2022 2:16 PM * Full Code Date Activated Date Inactivated Comments 09/21/2022 11:16 AM 09/23/2022 5:56 PM * Full Code Date Activated Date Inactivated Comments 09/13/2022 10:31 PM 09/21/2022 11:16 AM Care Teams Starch Treating Assistant Relationship Specialty Start Date End Date Morro Caba MD PCP - General Internal Medicine 02/15/22 [place] [id number] [place] [address] Consulting Physician Gastroenterology 03/16/23 [place] [address] [place] [address] Surgeon Colon and Rectal Surgery 04/10/23 Re[place]én[place] [id number] [place] [address] Radiation Oncologist Radiation Oncology 06/22/23 Sara Bell MD PhD [id number] [place] [address] Medical Oncologist/Hematologi st Medical Oncology 11/11/24
--- OUTSIDE RECORDS SUMMARY | 2024-11-25 15:28 | XMS_ITS | Referral Summary ---
Author Organization [facility] Address [address] [place] [address] Care Team Providers Care Rocket Engine Component Mechanic Name Role Phone Morro Caba MD Primary Care Provider [phone] Shanice Schmidt MD Unavailable [phone] Johny Davis MD Unavailable [phone] Rere Méndez MD Unavailable Sara Bell MD PhD Unavailable [phone] Encounters Date Type Department Care Team Description 11/12/2024 Orders Only [facility] Oncology [address] [place] [address] 5 [place] [id number] Sara Bell MD PhD 11/11/2024 10:30 AM CDT Lab [facility] - Lab Collection [address] [place] [address] Floor 5 [place] [address] Malignant neoplasm of sigmoid colon (HCC) 11/11/2024 1:00 PM CDT Office Visit [facility] Oncology [address] [place] [address] Floor 5 [place] [address] Sara Bell MD PhD Malignant neoplasm of sigmoid colon (HCC) (Primary Dx) 11/11/2024 12:00 PM CDT Lab [facility] Oncology Lab [address] [place] [address] Floor 5 [place] [address] Malignant neoplasm of sigmoid colon (HCC) 11/11/2024 9:18 AM CDT - 11/11/2024 11:59 PM CDT Hospital Encounter [facility] - [place] [address] [facility] Floor 8 [place] [address] Malignant neoplasm of sigmoid colon (HCC) Discharge Disposition: Discharge to home or self care 09/24/2024 7:45 AM CDT Ancillary Procedure [facility]iology [address] [facility] [address], [place] [address] VF (ventricular fibrillation) (HCC) (Primary Dx); CHB (complete heart block) (HCC); Cardiac arrest (HCC); Automatic implantable cardiac defibrillator in situ 09/24/2024 Telephone [facility]iology [address] [place] [address] Robert Peterson MD Request for Med List 09/24/2024 10:30 AM CDT Office Visit [facility]iology [address] [place] [address] Robert Peterson MD HOCM (hypertrophic obstructive cardiomyopathy) (HCC) (Primary Dx); Nonrheumatic aortic valve stenosis; Systolic congestive heart failure, unspecified HF chronicity (HCC) from Last 3 Months Allergies Active Allergy Reactions Criticality Noted Date [...] meals 10 mL 1 11/26/19 23 Active Additional Information Patient [...] in s itu 09/21/2022 Overview (09/21/2022): Medtronic Forestport Dual ICD. Dx; VF Arrest, High Grade AVB. DOI-09/21/2022-Kahanda. Leong. Carelink remote monitoring. Cardiac arrest 09/13/2022 Nonrheumatic aortic valve stenosis 03/31/2022 Syncope 02/15/2022 HOCM (hypertrophic obstructive cardiomyopathy) 0 02/15/2022 Ventricular tachycardia 02/15/2022 Social History Tobacco Use Types Packs/Day Years Used Date Smoking Tobacco: Former Cigarettes Q uit: 1983 Passive Smoke Exposure: Past Tobacco Cessation:Counseling Given: [...] week 01/17/2023 How often do you attend [facility] or jew services? Never 01/17/2023 Do you belong to any clubs o r organizations such as scientology groups, unions, fraternal or athletic groups, or [...] you are drinking? Patient does not drink 3 Q3: How often do you have si [...] place to sleep or slept in a assisted (including now)? No 01/17/2023 Personal Safety Answer Date Recorded Have you ever been in or are you currently in a harmful physical or emotional relationship or is someone making you feel afraid or unsafe? Denies 04/17/2023 Sex and Gender Information Value Date Recorded Sex Assigned at Not on file Legal Sex Male 9:01 PM SHOPFITTER Gender Identity Not on file Sexual Orientation Not on file Last Filed Vital Signs Vital Sign Reading [...] 09/24/2024 10:29 AM CDT Plan of Treatment Not on file Medical Devices Implanted Type Area Human Resources Safety Manager Device Identifier Shelf Expiration Date Model / Serial / Lot Medtronic Inc Forestport Dr Icd Mri Surescan Df4 [id number] - [id number] - [id number] Implanted:Qty: 1 on 09/21/2022 by Willian Metz MD at [facility] ICD Left: Infraclavicular Anterior Chest Wall Medtronic Inc [id number] 11/24/2023 [id number] / [id number] / Medtronic Inc Sprint Quattro Secure 62cm Tripolar Screw In Extendable [id number] - [id number] - [id number] Implanted:Qty: 1 on 09/21/2022 by Willian Metz MD at [facility] Lead Right: Ventricle Medtronic Inc [id number] 03/30/2024 6 [id number] / [id number] 8V / Medtronic Inc Capsurefix Novus 6.2fr 2mm 52cm Bipolar Screw In Implantable Latex Free 5076-52 - [id number] - [id number] Implanted:Qty: 1 on 09/21/2022 by Willian Metz MD at [facility] Lead Right: Atrial Appendage Medtronic Inc [id number] 06/16/2024 5076-52 / [id number] 6V / [employer] Powerport Clearvue Airguard 8fr 1 Lumen Lightweight Intermediate Latex Free [id number] - [id number] Implanted:Qty: 1 on 04/17/2023 by Johny Davis MD at [facility] Right: Chest [employer] 01/27/2024 [id number] / / [id number] Procedures Procedure Name Priority Date/Time Associated Diagnosis [...] of Race in Diagnosing Kidney Disease, JASN 202). The CKD-EPI equation should not be used for patients with unstable renal function and has not been validated in children and those over 70. Current interpretive data was last reviewed 2021. Blood 11/11/2024 10:2 1 AM CDT 11/11/2024 10:23 AM CDT us Robert Baldwin MD PhD LAB BLOOD ORDERABLES Final Result CLAIRE MCINTYRE [facility] Department [place] [address] * Differential, auto (11/11/2024 10:21 AM CDT) Neutrophil abs 4.83 1.50 - 6.50 K/cumm Comment:Testing performed by : [facility], [address] [place] [phone] Lymphocyte abs 1.59 0.80 - 3.30 K/cumm CERSAM MCINTYRE Comment:Testing performed by : [facility], [address] [place] [phone] Monocyte abs 0.64 0.20 - 0.80 K/cumm CLAIRE MCINTYRE Comment:Testing performed by : [facility], [address] [place] [phone] Eosinophil abs 0.40 0.00 - 0.50 K/cumm CERSAM BJ Comment:Testing performed by : [facility], [address] [place] [phone] Basophil abs 0.07 0.00 - 0.10 K/cumm CERSAM BJ Comment:Testing performed by : [facility], [address] [place] [phone] Neutrophil pct 64.2 % CERSAM MCINTYRE Comment: Interpretive Data Percent cell count reference ranges are not reported, since discordance with absolute values may lead to misinterpretation of CBC data. Current Interpretive Data was last revised on 2017. Testing performed by: [facility], [address] [place] [phone] Lymphocyte pct 21.1 % CERNER BJ Comment: Interpretive Data Percent cell count reference ranges are not reported, since discordance with absolute values may lead to misinterpretation of CBC data. Current Interpretive Data was last revised on 2017. Testing performed by: [facility], [address] [place] [phone] Monocyte pct 8.4 % CERNER BJ Comment: Interpretive Data Percent cell count reference ranges are not reported, since discordance with absolute values may lead to misinterpretation of CBC data. Current Interpretive Data was last revised on 2017. Testing performed by: [facility], [address] [place] [phone] Eosinophil pct 5.3 % CERNER BJ Comment: Interpretive Data Percent cell count reference ranges are not reported, since discordance with absolute values may lead to misinterpretation of CBC data. Current Interpretive Data was last revised on 2017. Testing performed by: [facility], [address] [place] [phone] Basophil pct 1.0 % CERNER BJ Comment: Interpretive Data Percent cell count reference ranges are not reported, since discordance with absolute values may lead to misinterpretation of CBC data. Current Interpretive Data was last revised on 2017. Testing performed by: [facility], [address] [place] [phone] Blood 11/11/2024 10:2 1 AM CDT 11/11/2024 10:24 AM CDT us Robert Baldwin MD PhD LAB BLOOD ORDERABLES Final Result CLAIRE MIGUELINA [facility] Department [place] [address] * (ABNORMAL) CBC with auto differential (11/11/2024 10:21 AM CDT) [facility] WBC 7.52 3.80 - 9.90 K/cumm Comment:Testing performed by : [facility], [address] [place], [place] [phone] Hgb 10.3(L) 13.0 - 17.5 g/dL CERNER BJ Comment:Testing performed by : [facility], [address] [place], [place] [phone] Hct 32.5(L) 38.9 - 50.3 % CERNER BJ Comment:Testing performed by : [facility], [address] [place], [place] [phone] Plt 273 150 - 400 K/cumm CERNER BJ Comment:Testing performed by : [facility], [address] [place], [place] [phone] MPV 7.2 6.8 - 10.4 fL CERNER BJ Comment:Testing performed by : [facility], [address] [place], [place] [phone] RBC 4.14(L) 4.30 - 5.80 M/cumm CERNER BJ Comment:Testing performed by : [facility], [address] [place] [address] MCV 78.6(L) 81.3 - 96.4 fL CERNER BJ Comment:Testing performed by : [facility], [address] [place] [address] MCH 24.9(L) 27.1 - 33.3 pg CERNER BJ Comment:Testing performed by : [facility], [address] [place] [address] MCHC 31.7(L) 32.3 - 35.7 g/dL CERNER BJ Comment:Testing performed by : [facility], [address] [place], [place] [phone] RDW CV 15.4(H) 11.1 - 14.9 % CERNER BJ Comment:Testing performed by : [facility], [address] [place] [address] NRBC abs 0.00 0.00 - 0.01 K/cumm [facility] Comment:Testing performed by : [facility], [address] [place] [phone] Blood 11/11/2024 10:2 1 AM CDT 11/11/2024 10:24 AM CDT Robert Baldwin MD PhD LAB BLOOD ORDERABLES Final Result Performing Organization Address [facility] Co de Phone Number [facility] [place] [address] * CEA (11/11/2024 10:21 AM CDT) Pathologist [facility] CEA 4.4 <=5.0 ng/mL Comment: Interpretive Data: [...] Final Result Performing Organization Address [facility] [place] [address] * (ABNORMAL) Comprehensive metabolic panel (11/11/2024 10:21 AM CDT) Sodium 138 135 - 145 mmol/L Potassium, pl 4.2 3.3 - 4.9 mmol/L [facility] Chloride 103 97 - 110 mmol/L [facility] CO2 25 22 - 32 mmol/L [facility] Anion gap 10 2 - 15 mmol/L [facility] BUN 31(H) 6 - 25 mg/dL [facility] Creatinine 1.95(H) 0.80 - 1.30 mg/dL [facility] Glucose 117 70 - 199 mg/dL [facility] Comment: Interpretive Data Fasting glucose >/= [...] 2022. Calcium 9.0 8.5 - 10.3 mg/dL [facility] Bilirubin, total 0.4 0.1 - 1.2 mg/dL [facility] Protein, pl 7.4 6.5 - 8.5 g/dL [facility] Albumin 3.8 3.5 - 5.0 g/dL [facility] Alk phos 89 40 - 130 Units/L [facility] ALT 9 7 - 55 Units/L [facility] AST 17 10 - 50 Units/L [facility] Blood 11/11/2024 10:2 1 AM CDT 11/11/2024 10:23 AM CDT us Robert Baldwin MD PhD LAB BLOOD ORDERABLES Final Result [facility] Department [place] [address] * CT Chest Abdomen Pelvis W Contrast [...] 9:47 AM CDT 11/11/2024 9:47 AM CDT Robert Baldwin MD PhD LAB POCT ORDERABLES - DEVICE Final Result CLAIRE MCINTYRE [facility] Department [place] [address] * DEVICE CHECK - REMOTE (09/30/2024 12:40 PM CDT) Anatomical Region Laterality Modality Other Narrative 10/11/2024 10:37 AM CDT Medtronic Forestport Dual ICD. Dx; VF Arrest, High Grade AVB. DOI-09/21/2022-Lashay. Salo. Carelink remote monitoring. Routine DDD ICD Remote. Transmission attached. Battery status 3.00 V, 7.7 years remaining battery life to BRANDYN. Stable Charge time and Shock impedance. Stable lead impedances, pacing, and sensing threshold. Presenting rhythm: AP/METAL DRESSER AP-87.1 %, METAL DRESSER-99.8 %, (0) AT/AF episodes noted. (0) Ventricular tachy arrhythmias detected. Medication: Amiodarone 200 mg, carvedilol 6.25 mg Follow up: Office Pacemaker/ICD scheduled 12/04/24 CareLink remote 6 months Harry Castillo, ARSENIO Robert Peterson MD CV CARDIAC SERVICES PROC [...] and children were not included. (Diabetes Care 31:5595-8477, 2008). The eAG is not equivalent to a fasting glucose. Blood 01/17/2023 9:42 AM CDT 01/17/2023 9:42 AM CDT us Komal Arenas MD LAB BLOOD ORDERABLES Final Re sult CLAIRE SRIVASTAVA [address] Department [place] [address] * Lipid panel (09/15/2022 2:25 AM CDT) [...] Pediatrics 2011;128:S213 2. NCEP Expert Panel. Circulation 2003;110:227 Current Interpretive Data was last revised on 2018. Chol/HDL ratio 3 CLAIRE SRIVASTAVA Blood 09/15/2022 2:25 AM CDT 09/15/2022 2:41 AM CDT us Rick Fu APRN LAB BLOOD ORDERABL ES Final Result CLAIRE [address] Department [place] [address] from Last 3 Months or Most Recently Relevant to Health Maintenance Insurance [address] [address] [place] [address] MEDICARE [employer] MEDICARE SUPPLEMENT INSURANCE [address] [place] [address] [facility] Address: [address] [address] [place] [address] IDPA [facility] MEDICARE SUPPLEMENT INSURANCE Advance Directives For more information, please contact: [phone] Documents on File Type Date Recorded Patient Spring Inspector Expl anation ADVANCE DIRECTIVE 04/06/2023 2:13 PM [...] 10:31 PM 09/21/2022 11:16 AM Care Teams Rocket Engine Component Mechanic Relationship Specialty Start Date End Date Morro Caba MD PCP - General Internal Medicine 02/15/22 [place] [address] [place] [address] Consulting Physician Gastroenterology 03/16/23 [place] [address] [place] [address] Surgeon Colon and Rectal Surgery 04/10/23 Rere Méndez [place] [address] [place] [address] Radiation Oncologist Radiation Oncology 06/22/23 Sara Bell MD PhD [address] [place] [address] Medical Oncologist/Hematologi Medical Oncology 11/11/24
--- OUTSIDE RECORDS SUMMARY | 2024-11-25 15:28 | XMS_ITS ---
Author Organization [facility] Address [address] [place] [address] Care Team Providers Care Railcar Foreman Name Role Phone Morro Caba MD Primary Care Provider [phone] Shanice Schmidt MD Unavailable [phone] Johny Davis MD Unavailable [phone] Rere Méndez MD Unavailable Sara Bell MD PhD Unavailable [phone] Active Problems Problem Noted Date Diagnosed Date [...] in s itu 09/21/2022 Overview (09/21/2022): Medtronic [place] Dual ICD. Dx; VF Arrest, High Grade AVB. DOI-09/21/2022-Kahanda. Leong. Carelink remote monitoring. Cardiac arrest 09/13/2022 Nonrheumatic aortic valve stenosis 03/31/2022 Syncope 02/15/2022 HOCM (hypertrophic obstructive cardiomyopathy) 0 02/15/2022 Ventricular tachycardia 02/15/2022 Current Treatment and Therapy Plans No current plan information found. Past Treatment and Therapy Plans Oncology Chemotherapy Treatment Plan Name Start Date Discontinue Date Treatment Medications Discontinue Reason Plan Provider Cycles [id number]: (Fluorouracil / Leucovorin / Oxaliplatin) 14 Day Cycles - GI 4 08/29/2023 fluorouracil (ADRUCIL)fluoro uracil (ADRUCIL) infusion - for home infusion (ADRUCIL)leucov orinleucovorin IVPB in 250 mL Provider Discretion Robert Resendez MD PhD 3 of 12 cycles started Oncology Treatment (2) Plan Name Start Date Discontinue Date Treatment Medications Discontinue Reason Plan Provider Cycles Capecitabine PO - Colon 08/29/2023 01/16/2024 capecitabine (XELODA) Therapy Complete Robert Resendez MD PhD 2 of 6 cycles started Radiation Treatments * Course [id number]_202206/16/2023 - 06/22/2023 Treatment Period Energy Fraction Dose Fractions Total Dose Plans Planned RECTUM 06/16/2023 - 06/22/2023 700 5 / 3,500 Reference Points Delivered RECTUM 06/16/2023 - 06/22/2023 3,500 Lifetime Dose Tracking * Chemical Lifetime Dose Automatic Entry Manual Entr y Fluoro Time 0.497 minutes 0.497 minutes 0 minutes Air kerma at the reference point (Ka,r) 167.91 mGy 9 .91 mGy 158 mGy DLP 4,309 mGycm 4,309 mGycm 0 mGycm
--- OUTSIDE RECORDS SUMMARY | 2024-11-25 15:28 | XMS_ITS | Encounter Summary ---
Author Organization [facility] Address [address] [place] [address] Phone Care Team Providers Care Telehealth Nurse Name Role Phone Morro Caba MD Primary Care Provider [phone] Shanice Schmidt MD Unavailable Johny Davis MD Unavailable [phone] Rere Méndez MD Unavailable Sara Bell MD PhD Unavailable Encounter Details Date Type Department Care Team (Late st Contact Info) Description 05/08/2023 Conference of Physicians/Providers [facility] Oncology [address] [facility] [address] [place] [address] [place] [address] Robert Resendez MD PhD [address] [place], [place] [id number] Social History Tobacco Use Types Packs/Day Years Used Date Smoking Tobacco: Former Cigarettes Q uit: 1983 Social Connection and Isolat ion Panel [NHANES] Answer Date Recorded In a typical week, how many times do you talk on the phone with family, friends, or neighbors? Three times a week 01/17/2023 How often do you get togethe r with friends or relatives? More than three times a week 01/17/2023 How often do you attend chur or muslim services? Never 01/17/2023 Do you belong to any clubs o r organizations such as zoroastrianism groups, unions, fraternal or athletic groups, or school groups? No 01/17/2023 How often do you attend meet ings of the clubs or organizations you belong to? Never 01/17/2023 Are you , , di vorced, , never , or living with a partner? 01/17/2023 AUDIT-C Answer Date Recorded Q1: How often do you have a drink containing alc ohol? Never 03/09/2023 Average Number of Drinks Not on file 023 Frequency of Binge Drinking Not on file 02/26 Overall Financial Resource Strain (CARDIA) Answe r [...] place to sleep or slept in a fdc (including now)? No 01/17/2023 Personal Safety Answer Date Recorded Have you ever been in or are you currently in a harmful physical or emotional relationship or is someone making you feel afraid or unsafe? 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 documented as of this encounter Care Teams Telehealth Nurse Relationship Specialty Start Date End Date Morro Caba MD PCP - General Internal Medicine 02/15/22 [place] [address] [facility] [address] [place] [address] Consulting Physician Gastroenterology 03/16/23 [place] [address] [place] [address] Surgeon Colon and Rectal Surgery 04/10/23 Rere Méndez [place] [address] [place] [address] Radiation Oncologist Radiation Oncology 06/22/23 Sara Bell MD PhD [address] [place] [address] Medical Oncologist/Hematologi st Medical Oncology 11/11/24 documented as of this encounter
[2024-11-25 15:38] VITALS: BP 111/64; PULSE 66; RESP 18; TEMP 36.5; O2SAT 97
--- NOTE | 2024-11-25 20:01 | ED_ITS ---
HPI - SOB/Dyspnea General Chief Complaint: Upper Respiratory Infection Stated Complaint: trouble lying down and breathing whle sleeping Time Seen by Provider: 11/25/24 19:56 Source: patient and RN notes reviewed Mode of arrival: EMS Limitations: no limitations History of Present Illness HPI Narrative: Patient presents with report of a chronic cough lasting several weeks and trouble particularly when lying down or he will experience increased cough and difficulty breathing. This is causing him to have difficulty sleeping. He denies any lauren orthopnea or paroxysmal nocturnal dyspnea, only that while lying down he experiences a tickling sensation in his throat. In general the cough has been dry but occasionally has been productive scant mucus. He has a history of heart failure per review of the EMR and does state that he is on a diuretic. He states he is only has a little swelling in his legs not much. Also has a history of BARBIE per review of the EMR. He denies any known acid reflux. Denies any burning sensation in the back of his throat or nausea or vomiting. Former smoker who quit 40 years ago. Denies any chest pain. Has a pacemaker. No fevers or chills. Related Data Home Medications ?Medication ?Instructions ?Recorded ?Confirmed ?Last Taken ?Type amiodarone 200 mg tablet 200 mg PO DAILY 06/12/23 11/26/24 Unknown History atorvastatin 40 mg tablet 40 mg PO QPM 06/12/23 11/26/24 Unknown History furosemide 40 mg tablet 40 mg PO DAILY 06/12/23 11/26/24 Unknown History guaifenesin 600 mg tablet, 1,200 mg PO BID 06/12/23 11/26/24 Unknown History extended release 12 hr insulin glargine 100 unit/mL (3 15 unit subcut HS 06/12/23 11/26/24 Unknown History mL) subcutaneous pen (Basaglar KwikPen U-100 Insulin) potassium chloride 20 mEq 20 meq PO BID 06/12/23 11/26/24 Unknown History tablet,extended release(part/cryst) acetaminophen 325 mg tablet 650 mg PO Q6H PRN fever or pain 11/26/24 11/26/24 Unknown History glucagon HCl 1 mg solution for 1 mg subcut ONCE PRN hypoglycemia 11/26/24 11/26/24 Unknown History injection (Glucagon (HCl) Emergency Kit) loratadine 10 mg capsule 10 mg PO DAILY 11/26/24 11/26/24 Unknown History pantoprazole 20 mg tablet,delayed 20 mg PO HS 11/26/24 11/26/24 Unknown History release prochlorperazine maleate 10 mg 10 mg PO Q6H PRN nausea and 11/26/24 11/26/24 Unknown History tablet (Compazine) vomiting sodium chloride 0.65 % nasal spray 2 spray intranasal Q2H PRN nasal 11/26/24 11/26/24 Unknown History aerosol (Saline Mist) congestion spironolactone 25 mg tablet 12.5 mg PO DAILY 11/26/24 11/26/24 Unknown History (Aldactone) vitamin B12 1,000 mcg-folic acid 1 tablet sublingual DAILY 11/26/24 11/26/24 Unknown History 400 mcg sublingual tablet Allergies Allergy/AdvReac Type Severity Reaction Status Date / Time aspirin Allergy Intermediate Unknown Verified 04/11/22 15:54 ANESTHESIA GAS AdvReac Severe SOB Uncoded 01/28/22 11:36 [facility] Past Medical History Medical History Syncope and collapse Atherosclerotic heart disease of [place] coronary artery without angina pectoris Essential (primary) hypertension Sleep apnea, unspecified Type 2 diabetes mellitus with unspecified complications Unspecified systolic (congestive) heart failure Ventricular fibrillation Disorder of bone, unspecified Malignant neoplasm of rectosigmoid junction Cough, unspecified Hypothyroidism, unspecified Chronic kidney disease, stage 4 (severe) Edema, unspecified Hypokalemia Other vitamin B12 deficiency anemias Acute upper respiratory infection, unspecified Other hypertrophic cardiomyopathy Pacemaker Spondylosis without myelopathy or radiculopathy, lumbar region Hypothyroidism Hypertension History of bradycardia Congestive heart failure Grade 1 diastolic, EF is 60-65% Hyperlipidemia DM2 (diabetes mellitus, type 2) Obstructive sleep apnea Surgical History Surgical History Previous back surgery Hx laparoscopic cholecystectomy Family History Family History Mother Diabetes mellitus Father Family history of emphysema Sibling Smoker Other Colon cancer Family history of arthritis Hypertension Lung cancer Social History Social History (Updated 11/26/24 @ 13:46 by Lidia Gutierrez PA-C) Social History: The patient lives with his Portia at [facility]. He is a former smoker 25 pack/yr smoker. He is retired. He has Meeta Garcia listed as his daughter. DNR per long term documentation. Patient confirms wanting to remain DNR. Smoking packs per day: 1 Smoking cigarettes per day: 20.0 Years smoked: 25 Smoking pack-years: 25.00 Smoking status: Former smoker Tobacco type: cigarettes Second hand tobacco smoke exposure: No Smoking end date: 05/29/79 Additional smoking assessment comments: QUIT APPROX 40 YEARS AGO Alcohol intake: never Substance use: never Substance use type: does not use Do You Feel Safe in your Home?: Yes Lack of Transportation: No Lack of Food: Never True Current Housing: I Have Housing Concerned About Future Housing: No Difficulty Paying Gas/Electric Bills: No Difficulty Paying for Meds: No Currently Unemployed: No Education: High School Diploma/GED Difficulty w/ Childcare or Family Care: No Additional living arrangements comments: [facility] [place] Spiritual care concerns: No Exam 2 Narrative: GENERAL: Well-appearing, well-nourished, and in no acute distress. HEAD: Normocephalic, atraumatic. EYES: Non injected, non icteric ENT: Nares clear, no rhinorrhea or epistaxis. Gross auditory acuity intact. Telangiectasias nose NECK: Supple. No meningismus. CHEST: Speaking in full sentences. No respiratory distress. A few Telangiectasias on chest, right. Diminished breath sounds. HEART: Regular rate and rhythm. . ABDOMEN: Soft, nondistended. No rigidity or guarding. Not peritoneal EXTREMITIES: 2+ bilateral lower extremity edema. SKIN: Warm, dry, no rash. NEURO: No focal deficits. Alert and oriented. Answering questions. Following commands. Normal speech without aphasia or dysarthria. PSYCH: Normal mood and affect. Course Vital Signs Vital signs: Vital Signs Temperature 97.7 F 11/25/24 15:38 Pulse Rate 66 11/25/24 15:38 Respiratory Rate 18 11/25/24 15:38 Blood Pressure 111/64 11/25/24 15:38 Pulse Oximetry 97 11/25/24 15:38 Oxygen Delivery Room Air 11/25/24 15:38 Temperature 97.8 F 11/26/24 14:00 Pulse Rate 61 11/26/24 14:00 Respiratory Rate 16 11/26/24 14:00 Blood Pressure 123/60 11/26/24 14:00 Pulse Oximetry 98 11/26/24 16:51 Oxygen Delivery Room Air 11/26/24 16:51 MDM - SOB/Dyspnea MDM Narrative Medical decision making narrative: Patient presents with trouble lying down as he experiences difficulty breathing and this is causing him to have trouble sleeping. He states that he has a chronic cough and feels a tingling sensation in his throat. History of heart failure, believes he is on diuretic. In the emergency department they are afebrile with vital signs within normal limits. History of heart failure as well as sleep apnea per review of the EMR. Not on anticoagulation. Chest x-ray as below. Dimer greater than [address] PE study. He has a leukocytosis and thrombocytosis, the latter is likely acute phase reactant. He also has a microcytic anemia though hemoglobin has been stable/chronic. BNP is elevated, worse than previous, concerning for acute on chronic heart failure exacerbation (although has CKD). Creatinine is at baseline in fact slightly improved, consistent with his known CKD. He has bilateral lower lobe pneumonia. CURB-65 score Confusion (No 0, Yes +1): 0 BUN >19mg/dl (No 0, Yes +1): Yes RR >/= 30 (No 0, Yes +1): No SBP <90mmHg or DBP </=60mmHg (No 0, Yes +1): No Age >/=65 (No 0, Yes +1): Yes 2?points Moderate risk group: 6.8% 30-day mortality. Consider inpatient treatment or outpatient with close followup Discussed with patient. Given his comorbidities which include his CKD and heart failure, reasonable to admit and he is in agreement. Given this will be a hospitalized patient, ceftriaxone and doxycycline are ordered (azithromycin deferred given QT). Blood cultures also ordered. He is occasionally coughing while talking with him but saturating appropriately. Requesting something to eat. Will also defer placing PRN ondansetron order given prolonged QT. Differential Diagnosis Differential diagnosis: Likely congestive heart failure, community acquired pneumonia, pulmonary embolism and other (reflux; acute viral syndrome) Lab Data Attestation: I reviewed the patient's lab results. 11/25/24 20:21 11/25/24 20:21 Labs: Lab Results 11/25/24 11/26/24 Range/Units 20:21 07:29 WBC 14.3 H (4.5-10.0) K/mm3 RBC 4.34 L (4.6-6.20) M/mm3 Hgb 10.4 L (14.0-18.0) g/dL Hct 34.4 L (42.0-52.0) % MCV 79.3 L (80-100) fl MCH 24.0 L (26-34) pg MCHC 30.2 L (32-36) g/dl RDW 15.7 H (11.5-14.5) % Plt Count 379 H D (150-375) k/mm3 MPV 8.9 (7.4-10.4) fl Immature Gran % (Auto) Not Reportable Neut % (Auto) Not Reportable Lymph % (Auto) Not Reportable [place] % (Auto) Not Reportable Eos % (Auto) Not Reportable Baso % (Auto) Not Reportable Lymph # (Auto) Not Reportable [place] # (Auto) Not Reportable Eos # (Auto) Not Reportable Baso # (Auto) Not Reportable Abs Immat Gran (auto) Not Reportable Absolute Neuts (auto) Not Reportable Absolute Nucleated RBC Not Reportable Total Counted 100 Neutrophils % (Manual) 53 (46-73) % Band Neutrophils % 5 (0-6) % Lymphocytes % (Manual) 33.0 (18-44) % Monocytes % (Manual) 2 L (3-9) % Eosinophils % (Manual) 4 (0-4) % Myelocytes % 3 % Nucleated RBC % Not Reportable Abs Neuts (Manual) 8.29 H (1.3-6.7) K/mm3 Abs Lymphs (Manual) 4.71 H (1.1-4.5) K/mm3 Abs Monocytes (Manual) 0.28 (0.1-0.90) K/mm3 Absolute Eos (Manual) 0.57 H (0.02-0.50) K/mm3 Platelet Estimate Adequate (Adequate) Hypochromasia 1+ Anisocytosis 1+ Ovalocytes 1+ Coxsackie Cells 1+ Schistocytes None seen D-Dimer 2.28 H (<0.48) ug/mL Sodium 134 L (137-145) mmol/L Potassium 4.5 (3.4-5.0) mmol/L Chloride 101 (98-107) mmol/L Carbon Dioxide 21 L (22-30) mmol/L Anion Gap 12 (4-12) mmol/L BUN 30 H (9-20) mg/dL Creatinine 1.56 H (0.7-1.3) mg/dL Estim Creat Clear Calc 32 ml/min Estimated GFR 42 L (59 - ) Glucose 131 H (65-110) mg/dL POC Capillary Glucose 134 H (65-105) mg/dl Calcium 8.6 (8.4-10.2) mg/dL Magnesium 2.3 (1.6-2.3) mg/dL Total Bilirubin 0.3 (0.2-1.3) mg/dL AST 51 (17-59) U/L ALT 51 H (6-50) U/L Alkaline Phosphatase 102 (38-126) U/L NT-Pro-B Natriuret Pep 6860 H (19.9-100) pg/mL Total Protein 7.5 (6.3-8.2) g/dL Albumin 3.2 L (3.5-5.1) g/dL Influenza A (RT-PCR) Negative (Negative) Influenza B (RT-PCR) Negative (Negative) RSV (RT-PCR) Negative (Negative) SARS-CoV-2 RNA (RT-PCR) Negative (Negative) Imaging Data Attestation: I personally reviewed and interpreted this imaging study as follows: My impression: Pacemaker in place. Hazy airspace disease/pulmonary edema on my independent interpretation of chest x-ray Radiologist's impression: Impressions Chest X-Ray 11/25/24 20:43 IMPRESSION: Patchy bibasilar airspace disease may be secondary to infection or edema. Chest CTA 11/25/24 22:52 IMPRESSION: No CT evidence of acute pulmonary embolus. Bilateral lower lobe pneumonia. Mediastinal lymphadenopathy. Ascending aortic ectasia. ECG Data EKG #1: Attestation: I personally reviewed and interpreted this ECG as follows: ECG completion date: 11/25/24 ECG completion time: 21:13 Interpretation: Electronic ventricular pacemaker. Rate 64 beats per minute. UT interval 202. QRS is prolonged at 208milliseconds. In addition QT/QTC is significantly prolonged at 560/570. Discharge Plan Discharge Clinical Impression: Prolonged QT interval, Anemia, Thrombocytosis, Leukocytosis, Acute on chronic heart failure, CKD (chronic kidney disease), Pneumonia of both lower lobes, Mediastinal lymphadenopathy, Thoracic aortic ectasia Patient Disposition: Still a Patient Condition: Stable Time of Disposition: 23:41
--- NOTE | 2024-11-25 20:02 | ECG_ITS ---
Test Date: 2024-11-25 21:13:38 Measurements Intervals [place] Rate: 64 P: 85 VT: 202 QRS: -68 QRSD: 208 T: 109 QT: 560 QTc: 581 Interpretive Statements ELECTRONIC VENTRICULAR PACEMAKER PROLONGED QT INTERVAL CRITICAL TEST RESULT No previous ECG available for comparison Electronically Signed On 11-26-2024 15:34:36 CDT by Artur Miller
[2024-11-25 20:26] LABS: Hematocrit 34.4 % (42.0-52.0); Hemoglobin 10.4 g/dL (14.0-18.0); Mean Corpuscular HGB Conc 30.2 g/dl (32-36); Mean Corpuscular Hemoglobin 24.0 pg (26-34); Mean Corpuscular Volume 79.3 fl (80-100); Platelet Count Result 379 k/mm3 (150-375); Red Blood Count 4.34 M/mm3 (4.6-6.20); White Blood Count 14.3 K/mm3 (4.5-10.0)
--- OUTSIDE RECORDS SUMMARY | 2024-11-25 20:38 | XMS_ITS | Referral Summary ---
Author Organization [facility] Address [address] [place] [id number] Care Team Providers Care Hooker On Name Role Phone Morro Caba MD Primary Care Provider [phone] Shanice Schmidt MD Unavailable [phone] Johny Davis MD Unavailable [phone] Rere Méndez MD Unavailable Sara Bell MD PhD Unavailable [phone] Encounters Date Type Department Care Team Description 11/12/2024 Orders Only [facility] [place] [facility] [address] [place] [address] 5 [place] [id number] Sara Bell MD PhD 11/11/2024 10:[address] [facility] - Lab Collection [address] [place] [address] Floor 5 [place] [address] Malignant neoplasm of sigmoid colon (HCC) 11/11/2024 1:00 PM CDT Office Visit [facility] [place] [facility] [address] [place] [address] Floor 5 [place] [address] Sara Bell MD PhD Malignant neoplasm of sigmoid colon (HCC) (Primary Dx) 11/11/2024 12:00 PM CDT Lab [facility] [place] [facility] Lab [address] [place] [address] Floor 5 [place] [address] Malignant neoplasm of sigmoid colon (HCC) 11/11/2024 9:18 AM CDT - 11/11/2024 11:59 PM CDT Hospital Encounter [facility] - [place] [address] [facility] [place] [place] Floor 8 [place] [address] Malignant neoplasm of sigmoid colon (HCC) Discharge Disposition: Discharge to home or self care 09/24/2024 7:45 AM CDT Ancillary Procedure [facility] [address] [facility] [address] [address] VF (ventricular fibrillation) (HCC) (Primary Dx); CHB (complete heart block) (HCC); Cardiac arrest (HCC); Automatic implantable cardiac defibrillator in situ 09/24/2024 Telephone [facility] [address] [place] [address] Robert Peterson MD Request for Med List 09/24/2024 10:30 AM CDT Office Visit [facility] [address] [place] [address] Robert Peterson MD HOCM (hypertrophic obstructive cardiomyopathy) [...] in s itu 09/21/2022 Overview (09/21/2022): Medtronic Kiana Dual ICD. Dx; VF Arrest, High Grade [...] week 01/17/2023 How often do you attend [facility] or rastafari services? Never 01/17/2023 Do you belong to any clubs o r organizations such as anglican groups, unions, fraternal or athletic groups, or [...] place to sleep or slept in a longterm (including now)? No 01/17/2023 Personal Safety Answer Date Recorded Have you ever been in or are you currently in a harmful physical or emotional relationship or is someone making you feel afraid or unsafe? 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 Gender Identity Not on file Sexual Orientation [...] on file Medical Devices Implanted Type Area Bus And Sys Integration Senior Manager Device Identifier Shelf Expiration Date Model / Serial / Lot Medtronic Inc Kiana Dr Icd Mri Surescan Df4 [id number] - [id number] - [id number] Implanted:Qty: 1 on 09/21/2022 by Willian Metz MD at [facility] ICD Left: Infraclavicular Anterior Chest Wall Medtronic Inc [id number] 11/24/2023 [id number] / [id number] / Medtronic Inc Sprint Quattro Secure 62cm Tripolar Screw In Extendable [id number] - [id number] - [id number] Implanted:Qty: 1 on 09/21/2022 by Willian Metz MD at [facility] Lead Right: Ventricle Medtronic Inc [id number] 03/30/2024 6 [id number] / [id number] 8V / Medtronic Inc Capsurefix Novus 6.2fr 2mm 52cm Bipolar Screw In Implantable Latex Free 5076-52 - [id number] - [id number] Implanted:Qty: 1 on 09/21/2022 by Willian Metz MD at [facility] Lead Right: Atrial Appendage Medtronic Inc [id number] 06/16/2024 5076-52 / [id number] 6V / [employer] Powerport Clearvue Airguard 8fr 1 Lumen Lightweight Intermediate Latex Free [id number] - [id number] Implanted:Qty: 1 on 04/17/2023 by Johny Davis MD at [facility] Right: Chest [employer] 01/27/2024 [id number] / [id number] Procedures Procedure Name Priority Date/Time Associated Diagnosis [...] BLOOD ORDERABLES Final Result CLAIRE MCINTYRE One [facility] [place] [address] * Differential, auto (11/11/2024 10:21 AM CDT) Neutrophil abs 4.83 1.50 - 6.50 K/cumm Comment:Testing performed by : [facility], [address] [place] [phone] Lymphocyte abs 1.59 0.80 - 3.30 K/cumm CERSAM MCINTYRE Comment:Testing performed by : [facility], [address] [place] [phone] Monocyte abs 0.64 0.20 - 0.80 K/cumm CLAIRE MCINTYRE Comment:Testing performed by : [facility], [address] [place] [phone] Eosinophil abs 0.40 0.00 - 0.50 K/cumm CERSAM BJ Comment:Testing performed by : [facility], [address] [place] [phone] Basophil abs 0.07 0.00 - 0.10 K/cumm CERSAM BJ Comment:Testing performed by : [facility], [address] [place] [phone] Neutrophil pct 64.2 % CERSAM MCINTYRE Comment: Interpretive Data Percent cell count reference ranges are not reported, since discordance with absolute values may lead to misinterpretation of CBC data. Current Interpretive Data was last revised on 2017. Testing performed by: [facility], [address] [place] [phone] Lymphocyte pct 21.1 % CERNER BJ Comment: Interpretive Data Percent cell count reference ranges are not reported, since discordance with absolute values may lead to misinterpretation of CBC data. Current Interpretive Data was last revised on 2017. Testing performed by: [facility], [address] [place] [phone] Monocyte pct 8.4 % CERNER BJ Comment: Interpretive Data Percent cell count reference ranges are not reported, since discordance with absolute values may lead to misinterpretation of CBC data. Current Interpretive Data was last revised on 2017. Testing performed by: [facility], [address] [place] [phone] Eosinophil pct 5.3 % CERNER BJ Comment: Interpretive Data Percent cell count reference ranges are not reported, since discordance with absolute values may lead to misinterpretation of CBC data. Current Interpretive Data was last revised on 2017. Testing performed by: [facility], [address] [place] [phone] Basophil pct 1.0 % CERNER BJ Comment: Interpretive Data Percent cell count reference ranges are not reported, since discordance with absolute values may lead to misinterpretation of CBC data. Current Interpretive Data was last revised on 2017. Testing performed by: [facility], [address] [place] [phone] Blood 11/11/2024 10:2 1 AM CDT 11/11/2024 10:24 AM CDT us Robert Baldwin MD PhD LAB BLOOD ORDERABLES Final Result CLAIRE MIGUELINA [facility] Department [place] [address] * (ABNORMAL) CBC with auto differential (11/11/2024 10:21 AM CDT) [facility] WBC 7.52 3.80 - 9.90 K/cumm Comment:Testing performed by : [facility], [address] [place], [place] [phone] Hgb 10.3(L) 13.0 - 17.5 g/dL CERNER BJ Comment:Testing performed by : [facility], [address] [place], [place] [phone] Hct 32.5(L) 38.9 - 50.3 % CERNER BJ Comment:Testing performed by : [facility], [address] [place], [place] [phone] Plt 273 150 - 400 K/cumm CERNER BJ Comment:Testing performed by : [facility], [address] [place], [place] [phone] MPV 7.2 6.8 - 10.4 fL CERNER BJ Comment:Testing performed by : [facility], [address] [place], [place] [phone] RBC 4.14(L) 4.30 - 5.80 M/cumm CERNER BJ Comment:Testing performed by : [facility], [address] [place] [address] MCV 78.6(L) 81.3 - 96.4 fL CERNER BJ Comment:Testing performed by : [facility], [address] [place] [address] MCH 24.9(L) 27.1 - 33.3 pg CERNER BJ Comment:Testing performed by : [facility], [address] [place] [address] MCHC 31.7(L) 32.3 - 35.7 g/dL CERNER BJ Comment:Testing performed by : [facility], [address] [place], [place] [phone] RDW CV 15.4(H) 11.1 - 14.9 % CERNER BJ Comment:Testing performed by : [facility], [address] [place] [address] NRBC abs 0.00 0.00 - 0.01 K/cumm [facility] Comment:Testing performed by : [facility], [address] [place] [phone] Blood 11/11/2024 10:2 1 AM CDT 11/11/2024 10:24 AM CDT Robert Baldwin MD PhD LAB BLOOD ORDERABLES Final Result Performing Organization Address [facility] Co de Phone Number [facility] [place] [address] * CEA (11/11/2024 10:21 AM CDT) Pathologist [facility] CEA 4.4 <=5.0 ng/mL Comment: Interpretive Data: [...] BLOOD ORDERABLES Final Result Performing Organization Address [facility] [place] [address] * (ABNORMAL) Comprehensive metabolic panel (11/11/2024 10:21 AM CDT) Sodium 138 135 - 145 mmol/L Potassium, pl 4.2 3.3 - 4.9 mmol/L [facility] Chloride 103 97 - 110 mmol/L [facility] CO2 25 22 - 32 mmol/L [facility] Anion gap 10 2 - 15 mmol/L [facility] BUN 31(H) 6 - 25 mg/dL [facility] Creatinine 1.95(H) 0.80 - 1.30 mg/dL [facility] Glucose 117 70 - 199 mg/dL [facility] Comment: Interpretive Data Fasting glucose [...] 2022. Calcium 9.0 8.5 - 10.3 mg/dL [facility] Bilirubin, total 0.4 0.1 - 1.2 mg/dL [facility] Protein, pl 7.4 6.5 - 8.5 g/dL [facility] Albumin 3.8 3.5 - 5.0 g/dL [facility] Alk phos 89 40 - 130 Units/L [facility] ALT 9 7 - 55 Units/L [facility] AST 17 10 - 50 Units/L [facility] Blood 11/11/2024 10:2 1 AM CDT 11/11/2024 10:23 AM CDT us Robert Baldwin MD PhD LAB BLOOD ORDERABLES Final Result [facility] [place] [address] * CT Chest Abdomen Pelvis W Contrast [...] - DEVICE Final Result CLAIRE MCINTYRE [facility] [place] [address] * DEVICE CHECK - REMOTE (09/30/2024 12:40 PM CDT) Anatomical Region Laterality Modality Other Narrative 10/11/2024 10:37 AM CDT Medtronic Kiana Dual ICD. Dx; VF Arrest, High Grade AVB. DOI-09/21/2022-Lashay. Salo. Carelink remote monitoring. Routine DDD ICD Remote. Transmission attached. Battery status 3.00 V, 7.7 years remaining battery life to BRANDYN. Stable Charge time and Shock impedance. Stable lead impedances, pacing, and sensing threshold. Presenting rhythm: AP/INKJET OPERATOR AP-87.1 %, INKJET OPERATOR-99.8 %, (0) AT/AF episodes noted. (0) Ventricular [...] and children were not included. (Diabetes Care [id number], 2008). The eAG is not equivalent to a fasting glucose. Blood 01/17/2023 9:42 AM CDT 01/17/2023 9:42 AM CDT us Komal Arenas MD LAB BLOOD ORDERABLES Final Re sult CLAIRE SRIVASTAVA [address] [place] [address] * Lipid panel (09/15/2022 2:25 AM CDT) [...] LAB BLOOD ORDERABL ES Final Result CLAIRE [address] Department [place] [address] from Last 3 Months or Most Recently Relevant to Health Maintenance Insurance [address] [address] [place] [address] MEDICARE [employer] MEDICARE SUPPLEMENT INSURANCE ID[address] [place] [address] MEDICARE IDPA [facility] MEDICARE SUPPLEMENT INSURANCE Advance Directives For more information, please contact: [phone] Documents on File Type Date Recorded 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 Expl anation ADVANCE DIRECTIVE 04/06/2023 2:13 PM [...] 10:31 PM 09/21/2022 11:16 AM Care Teams Hooker On Relationship Specialty Start Date End Date Morro Caba MD PCP - General Internal Medicine 02/15/22 [place] [address] [place] [address] Consulting Physician Gastroenterology 03/16/23 [place] [address] [place] [address] Surgeon Colon and Rectal Surgery 04/10/23 Rere Mén[place] [address] [place] [address] Radiation Oncologist Radiation Oncology 06/22/23 Sara Bell MD PhD [address] [place] [address] Medical Oncologist/Hematologi Medical Oncology 11/11/24
--- OUTSIDE RECORDS SUMMARY | 2024-11-25 20:38 | XMS_ITS | Clinical Summary ---
Author Organization [facility] Address [address] [place] [address] Care Team Providers Care Controls Designer Name Role Phone Morro Caba MD Primary Care Provider [phone] Shanice Schmidt MD Unavailable [phone] Johny Davis MD Unavailable [phone] Rere Méndez MD Unavailable Sara Bell MD PhD Unavailable [phone] Allergies Active Allergy Reactions Criticality Noted Date [...] in s itu 09/21/2022 Overview (09/21/2022): Medtronic [place] Dual ICD. Dx; VF Arrest, High Grade AVB. DOI-09/21/2022-Kahanda. Leong. Carelink remote monitoring. Cardiac arrest 09/13/2022 Nonrheumatic aortic valve stenosis 03/31/2022 Syncope 02/15/2022 HOCM (hypertrophic obstructive cardiomyopathy) 0 02/15/2022 Ventricular tachycardia 02/15/2022 Encounters Date Type Department Care Team Description 11/12/2024 Orders Only [facility] [address] [place] [address] 5 [place] [address] Sara Bell MD PhD 11/11/2024 1:00 PM CDT Office Visit [facility] [address] [place] [address] Floor 5 [place] [address] Sara Bell MD PhD Malignant neoplasm of sigmoid colon (HCC) (Primary Dx) 11/11/2024 12:00 PM CDT Lab [facility] Lab [address] [place] [address] Floor 5 [place] [address] Malignant neoplasm of sigmoid colon (HCC) 11/11/2024 10:30 AM CDT Lab [facility] - Lab Collection [facility] 5 [place] [address] Malignant neoplasm of sigmoid colon (HCC) 11/11/2024 9:18 AM CDT - 11/11/2024 11:59 PM CDT Hospital Encounter [facility] - [place] [address] [place] [address] Malignant neoplasm of sigmoid colon (HCC) Discharge Disposition: Discharge to home or self care 09/24/2024 10:30 AM CDT Office Visit [facility] [address] [place] [phone] Robert Peterson MD HOCM (hypertrophic obstructive cardiomyopathy) (HCC) (Primary Dx); Nonrheumatic aortic valve stenosis; Systolic congestive heart failure, unspecified HF chronicity (HCC) 09/24/2024 7:45 AM CDT Ancillary Procedure [facility] [address] [facility] [address] [address] VF (ventricular fibrillation) (HCC) (Primary Dx); CHB (complete heart block) (HCC); Cardiac arrest (HCC); Automatic implantable cardiac defibrillator in situ 09/24/2024 Telephone [facility] [address] [place] [phone] Robert Peterson MD Request for Med List [...] and vomiting) Ventricular fibrillation (HCC) p er [place] Records Hyperlipidemia per [place] Records Type 2 diabetes mellitus (HCC) Family [...] often do you attend chur ch or muslim services? Never 01/17/2023 Do you belong to any clubs o r organizations such as druze groups, unions, fraternal or athletic groups, or [...] on file Legal Sex Male 9:[address] Gender Identity Not on file Sexual Orientation [...] history exists Medical Devices Implanted Type Area Electrical Maintenance Worker Device Identifier Shelf Expiration Date Model / Serial / Lot pbsi Inc [place] Dr Icd Mri Surescan Df4 [id number] - [id number] - [id number] Implanted:Qty: 1 on 09/21/2022 by Willian Metz MD at [facility] ICD Left: Infraclavicular Anterior Chest Wall Medtronic Inc [id number] 11/24/2023 [id number] / [id number] 4S / Medtronic Inc Sprint Quattro Secure 62cm Tripolar Screw In Extendable [id number] - [id number] - [id number] Implanted:Qty: 1 on 09/21/2022 by Willian Metz MD at [facility] Lead Right: Ventricle Medtronic Inc [id number] 03/30/2024 6 [id number] / [id number] 8V / Medtronic Inc Capsurefix Novus 6.2fr 2mm 52cm Bipolar Screw In Implantable Latex Free 5076-52 - [id number] - [id number] Implanted:Qty: 1 on 09/21/2022 by Willian Metz MD at [facility] Lead Right: Atrial Appendage Medtronic Inc [id number] 06/16/2024 5076-52 / [id number] 6V / Bard Peripheral V[employer] Powerport Clearvue Airguard 8fr 1 Lumen Lightweight Intermediate Latex Free [id number] - [id number] Implanted:Qty: 1 on 04/17/2023 by Johny Davis MD at [facility] Right: Chest [employer] 01/27/2024 [id number] / [id number] Procedures Procedure Name Priority Date/Time Associated Diagnosis [...] MD PhD LAB BLOOD ORDERABLES Final Result [facility] One [facility] Department [place] [address] * Differential, auto (11/11/2024 10:21 AM CDT) Neutrophil abs 4.83 1.50 - 6.50 K/cumm Comment:Testing performed by : [facility], [address] [place], [place] [phone] Lymphocyte abs 1.59 0.80 - 3.30 K/cumm [facility] Comment:Testing performed by : [facility], [address] [place], [place] [phone] Monocyte abs 0.64 0.20 - 0.80 K/cumm [facility] Comment:Testing performed by : [facility], [address] [place], [place] [phone] Eosinophil abs 0.40 0.00 - 0.50 K/cumm [facility] Comment:Testing performed by : [facility], [address] [place] [phone] Basophil abs 0.07 0.00 - 0.10 K/cumm [facility] Comment:Testing performed by : [facility], [address] [place] [phone] Neutrophil pct 64.2 % [facility] Comment: Interpretive Data Percent cell count reference ranges are not reported, since discordance with absolute values may lead to misinterpretation of CBC data. Current Interpretive Data was last revised on 2017. Testing performed by: [facility], [address] [place] [phone] Lymphocyte pct 21.1 % [facility] Comment: Interpretive Data Percent cell count reference ranges are not reported, since discordance with absolute values may lead to misinterpretation of CBC data. Current Interpretive Data was last revised on 2017. Testing performed by: [facility], [address] [place] [phone] Monocyte pct 8.4 % [facility] Comment: Interpretive Data Percent cell count reference ranges are not reported, since discordance with absolute values may lead to misinterpretation of CBC data. Current Interpretive Data was last revised on 2017. Testing performed by: [facility], [address] [place] [phone] Eosinophil pct 5.3 % [facility] Comment: Interpretive Data Percent cell count reference ranges are not reported, since discordance with absolute values may lead to misinterpretation of CBC data. Current Interpretive Data was last revised on 2017. Testing performed by: [facility], [address] [place] [phone] Basophil pct 1.0 % [facility] Comment: Interpretive Data Percent cell count reference ranges are not reported, since discordance with absolute values may lead to misinterpretation of CBC data. Current Interpretive Data was last revised on 2017. Testing performed by: [facility], [address] [place] [phone] Blood 11/11/2024 10:2 1 AM CDT 11/11/2024 10:24 AM CDT us Robert Baldwin MD PhD LAB BLOOD ORDERABLES Final Result [facility] Department [place] [address] * (ABNORMAL) CBC with auto differential (11/11/2024 10:21 AM CDT) WBC 7.52 3.80 - 9.90 K/cumm Comment:Testing performed by : [facility], [address] [place] [phone] Hgb 10.3(L) 13.0 - 17.5 g/dL [facility] Comment:Testing performed by : [facility], [address] [place], [place] [phone] Hct 32.5(L) 38.9 - 50.3 % [facility] Comment:Testing performed by : [facility], [address] [place], [place] [phone] Plt 273 150 - 400 K/cumm [facility] Comment:Testing performed by : [facility], [address] [place], [place] [phone] MPV 7.2 6.8 - 10.4 fL [facility] Comment:Testing performed by : [facility], [address] [place], [place] [phone] RBC 4.14(L) 4.30 - 5.80 M/cumm [facility] Comment:Testing performed by : [facility], [address] [place], [place] [phone] MCV 78.6(L) 81.3 - 96.4 fL [facility] Comment:Testing performed by : [facility], [address] [place], [place] [phone] MCH 24.9(L) 27.1 - 33.3 pg [facility] Comment:Testing performed by : [facility], [address] [place] [address] MCHC 31.7(L) 32.3 - 35.7 g/dL [facility] Comment:Testing performed by : [facility], [address] [place] [address] RDW CV 15.4(H) 11.1 - 14.9 % [facility] Comment:Testing performed by : [facility], [address] [place] [address] NRBC abs 0.00 0.00 - 0.01 K/cumm [facility] Comment:Testing performed by : [facility], [address] [place] [address] Blood 11/11/2024 10:2 1 AM CDT 11/11/2024 10:24 AM CDT us Robert Baldwin MD PhD LAB BLOOD ORDERABLES Final Result Performing Organization Address [facility] de Phone Number [facility] [place] [address] * CEA (11/11/2024 10:21 AM CDT) [facility] CEA 4.4 <=5.0 ng/mL Comment: Interpretive [...] BLOOD ORDERABLES Final Result Performing Organization Address [facility] de Phone Number [facility] Department [place] [address] * (ABNORMAL) Comprehensive metabolic panel (11/11/2024 10:21 AM CDT) [facility] Sodium 138 135 - 145 mmol/L Potassium, pl 4.2 3.3 - 4.9 mmol/L [facility] Chloride 103 97 - 110 mmol/L [facility] CO2 25 22 - 32 mmol/L [facility] Anion gap 10 2 - 15 mmol/L [facility] BUN 31(H) 6 - 25 mg/dL [facility] Creatinine 1.95(H) 0.80 - 1.30 mg/dL [facility] Glucose 117 70 - 199 mg/dL [facility] Comment: Interpretive Data Fasting glucose >/= [...] 2022. Calcium 9.0 8.5 - 10.3 mg/dL [facility] Bilirubin, total 0.4 0.1 - 1.2 mg/dL [facility] Protein, pl 7.4 6.5 - 8.5 g/dL [facility] Albumin 3.8 3.5 - 5.0 g/dL [facility] Alk phos 89 40 - 130 Units/L [facility] ALT 9 7 - 55 Units/L [facility] AST 17 10 - 50 Units/L [facility] Blood 11/11/2024 10:2 1 AM CDT 11/11/2024 10:23 AM CDT us Robert Baldwin MD PhD LAB BLOOD ORDERABLES Final Result Performing Organization Address City/State/[facility] Co de Phone Number [facility] One [facility] Department [place] [address] * CT Chest Abdomen Pelvis W Contrast [...] AM CDT 11/11/2024 9:47 AM CDT us oRbert Baldwin MD PhD LAB POCT ORDERABLES - DEVICE Final Result [facility] Department [place] [address] * DEVICE CHECK - REMOTE (09/30/2024 12:40 PM CDT) Anatomical Region Laterality Modality Other Narrative 10/11/2024 10:37 AM CDT Medtronic [place] Dual ICD. Dx; VF Arrest, High Grade AVB. DOI-09/21/2022-Lashay. Salo. Carelink remote monitoring. Routine DDD ICD Remote. Transmission attached. Battery status 3.00 V, 7.7 years remaining battery life to BRANDYN. Stable Charge time and Shock impedance. Stable lead impedances, pacing, and sensing threshold. Presenting rhythm: AP/SKIVER MACHINE OPERATOR AP-87.1 %, SKIVER MACHINE OPERATOR-99.8 %, (0) AT/AF episodes noted. (0) Ventricular tachy arrhythmias detected. Medication: Amiodarone 200 mg, carvedilol 6.25 mg Follow up: Office Pacemaker/ICD scheduled 12/04/24 CareLink remote 6 months Harry Castillo RN Result [facility] Robert Peterson MD CV CARDIAC [...] and children were not included. (Diabetes Care 31:[id number], 2008). The eAG is not equivalent to a fasting glucose. Blood 01/17/2023 9:42 AM CDT 01/17/2023 9:42 AM CDT Result [facility] Komal Arenas MD LAB BLOOD ORDERABLES Final Re sult [facility] [id number] Department of Laboratories [place] [phone] * Lipid panel (09/15/2022 2:25 AM CDT) [...] LAB BLOOD ORDERABL ES Final Result [facility] [address] Department [place] [address] from Last 3 Months or Most Recently Relevant to Health Maintenance Insurance [address] [place] [address] MEDICARE IDPA MEDICARE [employer] MEDICARE SUPPLEMENT INSURANCE IDPA [address] [place] [address] MEDICARE IDPA [employer] MEDICARE SUPPLEMENT INSURANCE Advance Directives For more information, please contact: [phone] Documents on File Type Date Recorded Patient Transfer Coordinator Expl anation ADVANCE DIRECTIVE 04/06/2023 2:13 PM [...] 10:31 PM 09/21/2022 11:16 AM Care Teams Controls Designer Relationship Specialty Start Date End Date Morro Caba MD PCP - General Internal Medicine 02/15/22 [place] [id number] [place] [address] Consulting Physician Gastroenterology 03/16/23 [place] [address] [place] [address] Surgeon Colon and Rectal Surgery 04/10/23 Rere Méndez [place] [address] [place] [address] Radiation Oncologist Radiation Oncology 06/22/23 Sara Bell MD PhD [address] [place] [address] Medical Oncologist/Hematologi st Medical Oncology 11/11/24
--- OUTSIDE RECORDS SUMMARY | 2024-11-25 20:38 | XMS_ITS ---
Author Organization [facility] Address [address] [place] [phone] Care Team Providers Care Dry Starch Supervisor Name Role Phone Morro Caba MD Primary Care Provider [phone] Shanice Schmidt MD Unavailable [phone] Johny Davis MD Unavailable [phone] Rere Méndez MD Unavailable Sara Bell MD PhD Unavailable [phone] Active Problems Problem Noted Date Diagnosed Date [...] in s itu 09/21/2022 Overview (09/21/2022): Medtronic [place] Dual ICD. Dx; VF Arrest, High Grade [...]
--- OUTSIDE RECORDS SUMMARY | 2024-11-25 20:38 | XMS_ITS | Encounter Summary ---
Author Organization [facility] Address [address] [place] [address] Phone Care Team Providers Care Knitting Demonstrator Name Role Phone Morro Caba MD Primary Care Provider [phone] Shanice Schmidt MD Unavailable Johny Davis MD Unavailable [phone] Rere Méndez MD Unavailable Sara Bell MD PhD Unavailable [phone] Encounter Details Date Type Department Care Team (Late st Contact Info) Description 05/08/2023 Conference of Physicians/Providers [facility] Oncology [address] [facility] Advanced Medicine 7th [place] [address] [place] [address] Robert Resendez MD PhD [address] [place], [place] [id number] Social History Tobacco Use Types Packs/Day Years [...] How often do you attend chur or restorationist services? Never 01/17/2023 Do you belong to any clubs o r organizations such as spiritism groups, unions, fraternal or athletic groups, or [...] place to sleep or slept in a mcfp (including now)? No 01/17/2023 Personal Safety Answer Date Recorded Have you ever been in or are you currently in a harmful physical or emotional relationship or is someone making you feel afraid or unsafe? Denies 04/17/2023 Sex and Gender Information Value Date Recorded Sex Assigned at Not on file Legal Sex Male 9:01 PM INSOLVENCY PRACTITIONER Gender Identity Not on file Sexual Orientation Not on file documented as of this encounter Plan of Treatment Not on file documented as of this encounter Visit Diagnoses Not on filedocumented in this encounter Additional Health Concerns Infection Onset Date Last Indicated Resolved Time MRSA Comment:R buttock wound 01/17/23 01/17/2023 01/17/2023 07/16/19 3:05 AM INSOLVENCY PRACTITIONER documented as of this encounter Care Teams Knitting Demonstrator Relationship Specialty Start Date End Date Morro Caba MD PCP - General Internal Medicine 02/15/22 [place] [id number] [facility] [address] [place] [address] Consulting Physician Gastroenterology 03/16/23 [place] [address] [place] [address] Surgeon Colon and Rectal Surgery 04/10/23 Rere Méndez [place] [address] [place] [address] Radiation Oncologist Radiation Oncology 06/22/23 Sara Bell MD PhD [address] [place] [address] Medical Oncologist/Hematologi st Medical Oncology 11/11/24 documented as of this encounter
[2024-11-25 20:39] LABS: Alanine Aminotransferase 51 U/L (6-50); Albumin Level 3.2 g/dL (3.5-5.1); Alkaline Phosphatase 102 U/L (38-126); Anion Gap 12 mmol/L (4-12); Aspartate Amino Transferase 51 U/L (17-59); Bilirubin,Total 0.3 mg/dL (0.2-1.3); Blood Urea Nitrogen 30 mg/dL (9-20); Calcium 8.6 mg/dL (8.4-10.2); Carbon Dioxide 21 mmol/L (22-30); Chloride 101 mmol/L (98-107); Estimated CRCL calculation 32 ml/min; Estimated Glomerular Filt Rate 42; Glucose 131 mg/dL (65-110); Potassium 4.5 mmol/L (3.4-5.0); Sodium 134 mmol/L (137-145); Total Protein 7.5 g/dL (6.3-8.2)
[2024-11-25 20:48] LABS: NT Pro B Type Natriuretic Pept 6860 pg/mL (19.9-100)
[2024-11-25 20:54] LABS: Band Neutrophils Percent 5 % (0-6); Eosinophils Absolute Manual 0.57 K/mm3 (0.02-0.50); Eosinophils Percent Manual 4 % (0-4); Lymphocytes Absolute Manual 4.71 K/mm3 (1.1-4.5); Lymphocytes Percent Manual 33.0 % (18-44); Monocytes Absolute Manual 0.28 K/mm3 (0.1-0.90); Monocytes Percent Manual 2 % (3-9); Myelocytes Percent 3 %; Neutrophils Absolute Manual 8.29 K/mm3 (1.3-6.7); Neutrophils Percent Manual 53 % (46-73); Total Cells Counted 100
[2024-11-25 20:56] LABS: Anisocytosis 1+; Burr Cells 1+; Hypochromasia 1+; Ovalocytes 1+; Schistocytes None Seen
[2024-11-25 21:03] LABS: Influenza A QL RT-PCR Negative (Negative); Influenza B QL RT-PCR Negative (Negative); RSV RNA, RT-PCR Negative (Negative); SARS-CoV-2 RNA PCR Negative (Negative)
[2024-11-25 21:29] LABS: Magnesium 2.3 mg/dL (1.6-2.3)
[2024-11-25 22:31] VITALS: PULSE 68; RESP 13
[2024-11-25 22:34] VITALS: BP 108/45; PULSE 69; RESP 17
[2024-11-25 22:35] VITALS: PULSE 66; RESP 19
[2024-11-25 23:36] VITALS: PULSE 62; RESP 20
[2024-11-25 23:45] VITALS: PULSE 64; RESP 18
[2024-11-25] MEDS: AZITHROMYCIN 250 MG TABLET 500 MG PO (23:58)
[2024-11-26] VITALS (11 sets, daily range): BP systolic 107–129; BP diastolic 60–66; PULSE 60–65; RESP 16–20; TEMP 36.4–36.6; O2SAT 92–98; BMI 26.9
--- NOTE | 2024-11-26 | ECHO_ITS ---
Patient Info Name: Richie Garcia Age: 84 years : 1940 Gender: Male Ht: 67 in Wt: 171 lbs BSA: 1.93 m2 HR: 63 bpm BP: 107 / 62 mmHg Technical Quality: Fair Exam Date: 11/26/2024 1:21 PM Patient Status: I Admit Date: 11/26/2024 Exam Type: CA echo dop color flow w con Complete two-dimensional, color flow and Doppler transthoracic echocardiogram is performed with contrast to opacify the left ventricle and to improve the deliniation of the left ventricle endocardial borders. Staff Referring Physician: Barbara Otto Bull Chain Operator: Geovanna Dunn Attending Provider: Lidia Gutierrez Contrast/Agitated Saline Contrast/Ag. Saline: Definity Amount: 2.00 ml Administered By: Geovanna Dunn Existing IV Access: Yes IV Access Condition: patent with no signs of infiltration Summary 1. Definity contrast administered improved wall motion interpretation. 2. Left ventricular chamber dimension is moderately enlarged. 3. Left ventricular systolic function is moderately globally reduced, estimated at 35-40. 4. The left ventricular diastolic function is grade I diastolic dysfunction. 5. E/e' 11 is mildly elevated. 6. Linear artifact in right ventricle suggestive of catheter(s), pacemaker lead(s), or ICD lead(s). 7. Linear artifact in the right atrium suggestive of catheter(s), pacemaker lead(s), or ICD lead(s). 8. There is moderate aortic valve sclerosis. 9. There is moderate aortic valve stenosis with a peak velocity of 252 cm/s, mean gradient of 15 mmHg, and aortic valve area of 1.7 cm2. 10. There is mild aortic valve regurgitation. 11. The mitral valve has mildly calcified leaflets and a mildly calcified annulus. 12. There is mild to moderate mitral valve regurgitation. 13. There is moderate tricuspid valve regurgitation. 14. Mild pulmonary hypertension, estimated pulmonary arterial systolic pressure is 42 mmHg. Left Ventricle Definity contrast administered improved wall motion interpretation. Left ventricular chamber dimension is moderately enlarged. Left ventricular systolic function is moderately globally reduced, estimated at 35-40. The left ventricular diastolic function is grade I diastolic dysfunction. E/e' 11 is mildly elevated. Right Ventricle Right ventricular chamber dimension is normal. Right ventricular systolic function is normal. Linear artifact in right ventricle suggestive of catheter(s), pacemaker lead(s), or ICD lead(s). Left Atria Left atrial chamber dimension is normal. Right Atria Right atrial chamber dimension is normal. Linear artifact in the right atrium suggestive of catheter(s), pacemaker lead(s), or ICD lead(s). Aortic Valve The aortic valve is probable trileaflet. There is moderate aortic valve sclerosis. There is moderate aortic valve stenosis with a peak velocity of 252 cm/s, mean gradient of 15 mmHg, and aortic valve area of 1.7 cm2. There is mild aortic valve regurgitation. Pulmonic Valve There is no pulmonic regurgitation. Mitral Valve The mitral valve has mildly calcified leaflets and a mildly calcified annulus. There is no mitral valve stenosis. There is mild to moderate mitral valve regurgitation. Tricuspid Valve There is moderate tricuspid valve regurgitation. Mild pulmonary hypertension, estimated pulmonary arterial systolic pressure is 42 mmHg. Pericardium/Pleural There is no pericardial effusion. Inferior Vena Cava Normal inferior vena cava with >50% collapse upon inspiration consistent with normal right atrial pressure, 5 mmHg. Aorta The aortic root size at the sinus of Valsalva is normal. Left Ventricular Outflow Tract Name Value Normal LVOT 2D LVOT Diameter 2.0 cm LVOT Doppler LVOT Peak Velocity 131 cm/s LVOT Peak Gradient 4 mmHg LVOT Mean Gradient 2 mmHg LVOT VTI 30 cm LVOT VTI/AV VTI Ratio 0.5 LVOT Stroke Volume 97 ml LVOT CO 4.8 l/min LVOT CI 2.5 l/min/m2 Pulmonic Valve Name Value Normal RVOT Doppler RVOT Peak Velocity 69 cm/s RVOT Peak Gradient 2 mmHg PV Doppler PV Peak Velocity 80 cm/s PV Peak Gradient 3 mmHg Mitral Valve Name Value Normal MV Diastolic Function MV E Peak Velocity 64 cm/s MV A Peak Velocity 102 cm/s MV E/A 0.6 MV Decel Time (PW) 402 ms MV Annular TDI MV E/e' (Septal) 13.9 MV E/e' (Lateral) 9.7 MV E/e' (Average) 11.8 Tricuspid Valve Name Value Normal TV Regurgitation Doppler TR Peak Velocity 303 cm/s TR Peak Gradient 37 mmHg Estimated PAP/RSVP RA Pressure 5 mmHg <=5 PA Systolic Pressure 42 mmHg <36 RV Systolic Pressure 42 mmHg <36 Aortic Valve Name Value Normal AV Doppler AV Peak Velocity 252 cm/s AV Peak Gradient 25 mmHg AV Mean Gradient 15 mmHg AV VTI 56 cm AV Area (Cont Eq VTI) 1.7 cm2 >=3.0 AV Area (Cont Eq Marcio) 1.7 cm2 AV DI (Marcio) 0.52 AV Regurgitation 2D LVOT Area 3.2 cm2 Ventricles Name Value Normal LV Dimensions 2D/MM IVS Diastolic Thickness (2D) 1.0 cm 0.6-1.0 LVID Diastole (2D) 6.3 cm 4.2-5.8 LVIW Diastolic Thickness (2D) 1.1 cm 0.6-1.0 LVID Systole (2D) 5.4 cm 2.5-4.0 LVOT Diameter 2.0 cm LV Mass (2D Cubed) 280.69 g 88.00-224.00 LV Mass Index (2D Cubed) 145 g/m2 49-115 Relative Wall Thickness (2D) 0.34 <=0.42 LV Fractional Shortening/Ejection Fraction 2D/MM LV Fractional Shortening (2D) 14 % 25-43 LV EF (2D Teichholz) 29 % LV Diastolic Volume (4C MOD) 185 ml LV EF (4C MOD) 42 % LV Diastolic Volume (2C MOD) 192 ml LV EF (2C MOD) 34 % LV Diastolic Volume (BP MOD) 190 ml 62-150 LV Diastolic Volume Index (BP MOD) 98 ml/m2 34-74 LV Systolic Volume (BP MOD) 117 ml 21-61 LV Systolic Volume Index (BP MOD) 61 ml/m2 11-31 LV EF (BP MOD) 38 % 52-72 LV Diastolic Length (4C) 9.9 cm LV Systolic Length (4C) 8.7 cm LV Stroke Volume (4C MOD) 78 ml Atria Name Value Normal LA Dimensions LA Volume (4C A-L) 57 ml LA Volume (BP A-L) 53 ml RA Dimensions RA Systolic [place] Length (4C) 5.7 cm 2.1-2.7 RA Area (4C) 11.1 cm2 <=18.0 Report Signatures
[2024-11-26] MEDS: DOXYCYCLINE HYCLATE 100 MG TABLET PO (00:04)
--- NOTE | 2024-11-26 02:12 | ADMGEN ---
This patient, Richie Garcia, was admitted to 3 [facility] Surg Room 307-02. Patient/family oriented to hospital policies and general routines including ID bracelet, bed and alarms, visiting hours, pain management, procedures, bathroom and other care routines, personal items, smoking policy, room service/diet, and visiting hours. Information on how to activate the Rapid Response Team has been discussed. Patient/Family are encouraged to report perceived risks to care and to ask questions if they do not understand what they are told or what they should do.
--- NOTE | 2024-11-26 06:52 | PM.IMHP ---
H&P: HPI History of Present Illness Date/Time: 11/26/24 06:52 Chief Complaint: shortness of breath Narrative: 84 year old male with past medical history of hypertension, type 2 diabetes mellitus, CKD, CAD, HTN, HLD, hypothyroidism, heart failure, and afib with pacemaker presents to the hospital from [facility] for shortness of breath. He developed an occasional productive cough with white phlegm about 2 weeks ago. He stated that the cough continued to worsen and he then developed shortness of breath about 3-4 days ago. He states that the shortness of breath was further exacerbated when lying down and with activity. He has been having increased difficulties with sleep and has been sleeping in his recliner. He has noticed slight lower extremity swelling as well. He has no other complaints denying fevers/chills/night sweats, chest pain, palpitations, nausea/vomiting, and abdominal pain. ED workup: CBC with WBC 14.3, H/H 10.4/34.4, PLT 379. CMP with Na 134, K 4.5. BUN/Cr 30/1.56 with GFR 42. Mag 2.3. LFT WNL. BNP 6860. D dimer 2.28. Viral panel negative. Chest XR showed patchy bibasilar airspace disease may be secondary to infection or edema. Chest CTA showed no PE, bilateral lower lobe pneumonia, mediastinal lymphadenopathy, and ascending aortic ectasia. Review of Systems Review of Systems: All systems reviewed & are unremarkable except as noted in HPI and below PMFSH Past Medical History Medical History Syncope and collapse Atherosclerotic heart disease of [place] coronary artery without angina pectoris Essential (primary) hypertension Sleep apnea, unspecified Type 2 diabetes mellitus with unspecified complications Unspecified systolic (congestive) heart failure Ventricular fibrillation Disorder of bone, unspecified Malignant neoplasm of rectosigmoid junction Cough, unspecified Hypothyroidism, unspecified Chronic kidney disease, stage 4 (severe) Edema, unspecified Hypokalemia Other vitamin B12 deficiency anemias Acute upper respiratory infection, unspecified Other hypertrophic cardiomyopathy Pacemaker Spondylosis without myelopathy or radiculopathy, lumbar region Hypothyroidism Hypertension History of bradycardia Congestive heart failure Grade 1 diastolic, EF is 60-65% Hyperlipidemia DM2 (diabetes mellitus, type 2) Obstructive sleep apnea Surgical History Surgical History Previous back surgery Hx laparoscopic cholecystectomy Family History Family History Mother Diabetes mellitus Father Family history of emphysema Sibling Smoker Other Colon cancer Family history of arthritis Hypertension Lung cancer Social History Social History (Updated 11/26/24 @ 13:46 by Lidia Gutierrez PA-C) Social History: The patient lives with his Portia at [facility]. He is a former smoker 25 pack/yr smoker. He is retired. He has Meeta Garcia listed as his daughter. DNR per [facility] documentation. Patient confirms wanting to remain DNR. Smoking packs per day: 1 Smoking cigarettes per day: 20.0 Years smoked: 25 Smoking pack-years: 25.00 Smoking status: Former smoker Tobacco type: cigarettes Second hand tobacco smoke exposure: No Smoking end date: 05/29/79 Additional smoking assessment comments: QUIT APPROX 40 YEARS AGO Alcohol intake: never Substance use: never Substance use type: does not use Do You Feel Safe in your Home?: Yes Lack of Transportation: No Lack of Food: Never True Current Housing: I Have Housing Concerned About Future Housing: No Difficulty Paying Gas/Electric Bills: No Difficulty Paying for Meds: No Currently Unemployed: No Education: High School Diploma/GED Difficulty w/ Childcare or Family Care: No Additional living arrangements comments: [facility] [place] [facility] care concerns: No Meds Home Medications and Allergies Home Medications ?Medication ?Instructions ?Recorded ?Confirmed ?Type amiodarone 200 mg tablet 200 mg PO DAILY 06/12/23 11/26/24 History atorvastatin 40 mg tablet 40 mg PO QPM 06/12/23 11/26/24 History furosemide 40 mg tablet 40 mg PO DAILY 06/12/23 11/26/24 History guaifenesin 600 mg tablet, 1,200 mg PO BID 06/12/23 11/26/24 History extended release 12 hr insulin glargine 100 unit/mL (3 15 unit subcut HS 06/12/23 11/26/24 History mL) subcutaneous pen (Basaglar KwikPen U-100 Insulin) potassium chloride 20 mEq 20 meq PO BID 06/12/23 11/26/24 History tablet,extended release(part/cryst) levothyroxine 150 mcg tablet 150 mcg PO DAILY@0630 #30 tabs 06/15/23 11/26/24 Rx (Synthroid) acetaminophen 325 mg tablet 650 mg PO Q6H PRN fever or pain 11/26/24 11/26/24 History glucagon HCl 1 mg solution for 1 mg subcut ONCE PRN hypoglycemia 11/26/24 11/26/24 History injection (Glucagon (HCl) Emergency Kit) loratadine 10 mg capsule 10 mg PO DAILY 11/26/24 11/26/24 History pantoprazole 20 mg tablet,delayed 20 mg PO HS 11/26/24 11/26/24 History release prochlorperazine maleate 10 mg 10 mg PO Q6H PRN nausea and 11/26/24 11/26/24 History tablet (Compazine) vomiting sodium chloride 0.65 % nasal spray 2 spray intranasal Q2H PRN nasal 11/26/24 11/26/24 History aerosol (Saline Mist) congestion spironolactone 25 mg tablet 12.5 mg PO DAILY 11/26/24 11/26/24 History (Aldactone) vitamin B12 1,000 mcg-folic acid 1 tablet sublingual DAILY 11/26/24 11/26/24 History 400 mcg sublingual tablet Allergies Allergy/AdvReac Type Severity Reaction Status Date / Time aspirin Allergy Intermediate Unknown Verified 04/11/22 15:54 ANESTHESIA GAS AdvReac Severe SOB Uncoded 01/28/22 11:36 Vital Signs Vital Signs - 24 hr 11/25/24 15:38 11/25/24 19:48 11/25/24 22:31 Temperature 97.7 F Pulse Rate 66 68 Respiratory Rate 18 13 Blood Pressure 111/64 Pulse Oximetry 97 Oxygen Delivery Room Air Room Air 11/25/24 22:34 11/25/24 22:35 11/25/24 23:36 Temperature Pulse Rate 69 66 62 Respiratory Rate 17 19 20 Blood Pressure 108/45 L Pulse Oximetry Oxygen Delivery 11/25/24 23:45 11/26/24 00:00 11/26/24 02:19 Temperature 97.7 F Pulse Rate 64 63 64 Respiratory Rate 18 20 20 Blood Pressure 120/61 Pulse Oximetry 95 92 Oxygen Delivery 11/26/24 04:00 11/26/24 06:00 Temperature 97.6 F Pulse Rate 60 65 Respiratory Rate 18 Blood Pressure 107/62 Pulse Oximetry 92 Oxygen Delivery Exam Narrative: AF HR 65 RR 18 SpO2 92 BP 107/62 General: male in no acute respiratory distress who is nontoxic appearing, sitting up in bed HEENT: Normocephalic. Atraumatic. Extraocular movement intact. Sclera clear and anicteric. No facial asymmetry. Neck: Neck was supple. No dominant adenopathy, thyromegaly or masses. Chest: Lungs are diminished with crackles to auscultation to the bases bilaterally. No wheezes. CV: Heart was regular rate and rhythm. S1/S2. No murmurs, gallops, or rubs. Abd: Abdomen was soft. Nontender. Nondistended. Positive bowel sounds. Ext: No clubbing, cyanosis, or edema. 2+ DP pulses bilaterally. Neuro: Patient is alert and oriented x4. Strength is 5/5 in both upper and lower extremities. Speech is clear. Psych: Normal mood and affect. Patient is pleasant and cooperative. Skin: Warm and dry. No rashes noted. H&P: Results Labs Labs: Short CBC 11/25/24 Range/Units 20:21 WBC 14.3 H (4.5-10.0) K/mm3 Hgb 10.4 L (14.0-18.0) g/dL Hct 34.4 L (42.0-52.0) % Plt Count 379 H D (150-375) k/mm3 BMP 11/25/24 20:21 Sodium 134 L Potassium 4.5 Chloride 101 Carbon Dioxide 21 L BUN 30 H Creatinine 1.56 H Glucose 131 H Calcium 8.6 Liver Function 11/25/24 Range/Units 20:21 Total Bilirubin 0.3 (0.2-1.3) mg/dL AST 51 (17-59) U/L ALT 51 H (6-50) U/L Alkaline Phosphatase 102 (38-126) U/L Albumin 3.2 L (3.5-5.1) g/dL Assessment and Plan Assessment and plan (1) Acute on chronic heart failure: Code(s): I50.9 - Heart failure, unspecified Status: Acute Assessment and Plan: - Symptoms: shortness of breath, orthopnea, and slight lower extremity edema - Current medications: lasix 40 mg daily IV, continue home spironolactone 12.5 mg daily - BNP: 6860 - EKG: Paced. Prolonged QTc. - Chest XR showed patchy bibasilar airspace disease may be secondary to infection or edema. - Chest CTA showed no PE, bilateral lower lobe pneumonia, mediastinal lymphadenopathy, and ascending aortic ectasia. - Echo 06/12/23: LVEF 35-40% with grade I diastolic dysfunction - Repeat echo to reassess heart function - Monitor vital signs, I&Os, BUN/creatinine, daily weights, neuro status and patient is a fall risk - Monitor serum electrolytes, Keep serum Potassium>4 and serum Magnesium>2 and CBC (2) Pneumonia: Code(s): J18.9 - Pneumonia, unspecified organism Status: Acute Assessment and Plan: Chest XR showed patchy bibasilar airspace disease may be secondary to infection or edema. Chest CTA showed no PE, bilateral lower lobe pneumonia, mediastinal lymphadenopathy, and ascending aortic ectasia. - started on CAP tx: ceftriaxone and doxycycline (qtc prolonged) started on 11/25 - Viral PCR: negative for Flu/COVID/RSV. MRSA negative - consider ordering legionella, mycoplasma and pneumococcal - no supplemental O2 requirement - Monitor vital signs, I&Os, neuro status and patient is a fall risk - Follow WBC, serum electrolytes, temperature curves and cultures (3) DM2 (diabetes mellitus, type 2): Code(s): E11.9 - Type 2 diabetes mellitus without complications Status: Chronic Assessment and Plan: - hypoglycemia protocol - POC blood glucose ACHS - home medication - lantus 15 units HS - correct regimen ordered - lantus 12 units (20% decrease from home dose) - A1C ordered (4) Atrial fibrillation: Code(s): I48.91 - Unspecified atrial fibrillation Status: Chronic Assessment and Plan: - EKG: paced with prolonged qtc - Continue current home medication: amiodarone 200 mg daily. Given prolonged qtc discussed starting this with cardiology [employer] CLE[employer]ER okay to start at this time. Patient remains on tele. - Not anticoagulated - Patient is unsure who his filling hand is (5) Hypertension: Code(s): I10 - Essential (primary) hypertension Status: Acute Assessment and Plan: Chronic - continue lasix 40 mg IV daily and spironolactone 12.5 mg daily - blood pressures remain stable, continue to monitor (6) Obstructive sleep apnea: Code(s): G47.33 - Obstructive sleep apnea (adult) (pediatric) Status: Chronic Assessment and Plan: Does not use CPAP. Quality VTE Prophylaxis VTE prophylaxis: pharmacologic ordered Hospitalist MIPS Advance Care Plan I have confirmed that the patient's Advanced Care Plan is present, code status is documented, or surrogate decision maker is listed in patient medical record.: Yes Medication Reconciliation I have utilized all available resources to obtain, update and review the patients current medications (includes all prescriptions, OTC, herbals, cannabis, and nutritional supplements).: Yes
[2024-11-26] MEDS: DOXYCYCLINE 100 MG/NS 100 ML 100 MG/100 ML BAG IVPB ×2 (10:38→20:35)
[2024-11-26] MEDS: FUROSEMIDE INJ 40 MG/4 ML VIAL IV PUSH (10:39)
[2024-11-26] MEDS: POTASSIUM CHLORIDE 20 MEQ ER TABLET PO ×2 (10:39→17:38)
[2024-11-26] MEDS: guaiFENesin 12 HR 600 MG TABCR 1200 MG PO ×2 (10:39→20:34)
[2024-11-26] MEDS: PERFLUTREN LIPID MICROSPHERES 1.5 ML VIAL DILUTED TO 10 ML TOTAL VOLUME IV PUSH (14:25)
--- NOTE | 2024-11-26 16:17 | IVDEFINITY ---
Prior to administration of IV Definity the patient was educated on the risks and benefits of the imaging enhancing agent including potential adverse side effects. The patient verbalized understanding. Allergies were verified. No exclusion criteria were identified and at least one of the following inclusion criteria were met: 1) physician request, 2) patient technically difficult to image (per the [place] [employer] guidelines of two or more segments not discernable within the apical view), or 3) questionable left ventricular function. ?
[2024-11-26] MEDS: ATORVASTATIN 40 MG TABLET PO (17:38)
[2024-11-26] MEDS: PANTOPRAZOLE SOD SESQUIHYDRATE 20 MG TAB PO (20:34)
[2024-11-27] VITALS (10 sets, daily range): BP systolic 100–125; BP diastolic 52–60; PULSE 56–70; RESP 16–20; TEMP 36–36.8; O2SAT 94–98
--- NOTE | 2024-11-27 03:41 | PC.NURSE ---
On 11/27/24, ARSENIO Merlos, provided care and completed [employer] documentation on this patient with this nurse available for assistance/questions. I have reviewed Chelita's documentation and agree with the findings.
[2024-11-27] MEDS: LEVOTHYROXINE SODIUM 150 MCG TABLET PO (06:29)
[2024-11-27 06:52] LABS: Alanine Aminotransferase 38 U/L (6-50); Albumin Level 2.9 g/dL (3.5-5.1); Alkaline Phosphatase 86 U/L (38-126); Anion Gap 8 mmol/L (4-12); Aspartate Amino Transferase 37 U/L (17-59); Bilirubin,Total 0.3 mg/dL (0.2-1.3); Blood Urea Nitrogen 33 mg/dL (9-20); Calcium 8.4 mg/dL (8.4-10.2); Carbon Dioxide 23 mmol/L (22-30); Chloride 104 mmol/L (98-107); Estimated CRCL calculation 26 ml/min; Estimated Glomerular Filt Rate 37; Glucose 128 mg/dL (65-110); Potassium 4.8 mmol/L (3.4-5.0); Sodium 135 mmol/L (137-145); Total Protein 6.6 g/dL (6.3-8.2)
[2024-11-27 07:50] LABS: Hemoglobin A1C 6.9 % (<5.7)
[2024-11-27] MEDS: AMIODARONE HCL 200 MG TABLET PO (08:31)
[2024-11-27] MEDS: FUROSEMIDE INJ 40 MG/4 ML VIAL IV PUSH (08:31)
[2024-11-27] MEDS: ACETAMINOPHEN 325 MG TABLET 650 MG PO (08:31)
[2024-11-27] MEDS: guaiFENesin 12 HR 600 MG TABCR 1200 MG PO ×2 (08:32→21:15)
[2024-11-27] MEDS: POTASSIUM CHLORIDE 20 MEQ ER TABLET PO ×2 (08:32→16:39)
[2024-11-27] MEDS: DOXYCYCLINE 100 MG/NS 100 ML 100 MG/100 ML BAG IVPB ×2 (09:04→21:15)
--- NOTE | 2024-11-27 15:02 | PM.IMPN ---
Progress Note: A&P Assessment and Plan (1) Acute on chronic heart failure: Code(s): I50.9 - Heart failure, unspecified Status: Acute Assessment and Plan: - Symptoms: shortness of breath, orthopnea, and slight lower extremity edema - Current medications: lasix 40 mg daily IV, continue home spironolactone 12.5 mg daily - BNP: 6860 - EKG: Paced. Prolonged QTc. - Chest XR showed patchy bibasilar airspace disease may be secondary to infection or edema. - Chest CTA showed no PE, bilateral lower lobe pneumonia, mediastinal lymphadenopathy, and ascending aortic ectasia. - Echo 06/12/23: LVEF 35-40% with grade I diastolic dysfunction - Repeat echo to reassess heart function - Monitor vital signs, I&Os, BUN/creatinine, daily weights, neuro status and patient is a fall risk - Monitor serum electrolytes, Keep serum Potassium>4 and serum Magnesium>2 and CBC (2) Pneumonia: Code(s): J18.9 - Pneumonia, unspecified organism Status: Acute Assessment and Plan: Chest XR showed patchy bibasilar airspace disease may be secondary to infection or edema. Chest CTA showed no PE, bilateral lower lobe pneumonia, mediastinal lymphadenopathy, and ascending aortic ectasia. - started on CAP tx: ceftriaxone and doxycycline (qtc prolonged) started on 11/25 - Viral PCR: negative for Flu/COVID/RSV. MRSA negative - consider ordering legionella, mycoplasma and pneumococcal - no supplemental O2 requirement - Monitor vital signs, I&Os, neuro status and patient is a fall risk - Follow WBC, serum electrolytes, temperature curves and cultures conitnue therapy added chest physiotherapy ambulate out of bed IS (3) DM2 (diabetes mellitus, type 2): Code(s): E11.9 - Type 2 diabetes mellitus without complications Status: Chronic Assessment and Plan: - hypoglycemia protocol - POC blood glucose ACHS - home medication - lantus 15 units HS - correct regimen ordered - lantus 12 units (20% decrease from home dose) - A1C ordered (4) Atrial fibrillation: Code(s): I48.91 - Unspecified atrial fibrillation Status: Chronic Assessment and Plan: - EKG: paced with prolonged qtc - Continue current home medication: amiodarone 200 mg daily. 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 Patient remains on tele. - Not anticoagulated - Patient is unsure who his flight operations dispatch clerk is (5) Hypertension: Code(s): I10 - Essential (primary) hypertension Status: Acute Assessment and Plan: Chronic - continue lasix 40 mg IV daily and spironolactone 12.5 mg daily - blood pressures remain stable, continue to monitor (6) Obstructive sleep apnea: Code(s): G47.33 - Obstructive sleep apnea (adult) (pediatric) Status: Chronic Assessment and Plan: Does not use CPAP. Time Spent With Patient Time with patient: 25 - 35 minutes Subjective Date/time seen: 11/27/24 15:02 Interval history: 84 year old male with past medical history of hypertension, type 2 diabetes mellitus, CKD, CAD, HTN, HLD, hypothyroidism, heart failure, and afib with pacemaker presents to the hospital from [facility] [place] for shortness of breath. He developed an occasional productive cough with white phlegm about 2 weeks ago. He stated that the cough continued to worsen and he then developed shortness of breath about 3-4 days ago. He states that the shortness of breath was further exacerbated when lying down and with activity. He has been having increased difficulties with sleep and has been sleeping in his recliner. He has noticed slight lower extremity swelling as well. He has no other complaints denying fevers/chills/night sweats, chest pain, palpitations, nausea/vomiting, and abdominal pain. ED workup: CBC with WBC 14.3, H/H 10.4/34.4, PLT 379. CMP with Na 134, K 4.5. BUN/Cr 30/1.56 with GFR 42. Mag 2.3. LFT WNL. BNP 6860. D dimer 2.28. Viral panel negative. Chest XR showed patchy bibasilar airspace disease may be secondary to infection or edema. Chest CTA showed no PE, bilateral lower lobe pneumonia, mediastinal lymphadenopathy, and ascending aortic ectasia. Pt is seen and examined. He is in bed, reports cough and hard to expell secretions. no chest pain Review of Systems Review of Systems: All systems reviewed & are unremarkable except as noted in HPI and below Exam Narrative: AF HR 65 RR 18 SpO2 92 BP 107/62 General: male in no acute respiratory distress who is nontoxic appearing, sitting up in bed HEENT: Normocephalic. Atraumatic. Extraocular movement intact. Sclera clear and anicteric. No facial asymmetry. Neck: Neck was supple. No dominant adenopathy, thyromegaly or masses. Chest: Lungs are diminished with crackles to auscultation to the bases bilaterally. No wheezes. CV: Heart was regular rate and rhythm. S1/S2. No murmurs, gallops, or rubs. Abd: Abdomen was soft. Nontender. Nondistended. Positive bowel sounds. Ext: No clubbing, cyanosis, or edema. 2+ DP pulses bilaterally. Neuro: Patient is alert and oriented x4. Strength is 5/5 in both upper and lower extremities. Speech is clear. Psych: Normal mood and affect. Patient is pleasant and cooperative. Skin: Warm and dry. No rashes noted. Objective Data Vital Signs Vital Signs: Vital Signs - 24 hr 11/26/24 16:03 11/26/24 16:51 11/26/24 20:00 Temperature Pulse Rate 61 Respiratory Rate Blood Pressure Pulse Oximetry 98 Oxygen Delivery Room Air Room Air 11/26/24 20:00 11/26/24 22:00 11/27/24 00:00 Temperature 97.7 F Pulse Rate 60 60 60 Respiratory Rate 20 Blood Pressure 129/66 Pulse Oximetry 97 Oxygen Delivery 11/27/24 04:00 11/27/24 06:00 11/27/24 08:00 Temperature 98.2 F Pulse Rate 66 66 70 Respiratory Rate 16 Blood Pressure 100/52 L Pulse Oximetry 97 Oxygen Delivery 11/27/24 08:31 11/27/24 12:00 11/27/24 14:32 Temperature Pulse Rate 64 63 Respiratory Rate Blood Pressure Pulse Oximetry Oxygen Delivery Room Air Intake/Output Intake/Output: Intake & Output 11/24/24 11/25/24 11/26/24 11/27/24 23:59 23:59 23:59 23:59 Intake Total 1426 60 Output Total 500 0 Balance 926 60 Meds/Results Medications: Active Medications Generic Name Dose Route Start Last Admin Trade Name Freq PRN Reason Stop Dose Admin Acetaminophen 650 mg 11/25/24 23:38 11/27/24 08:31 Acetaminophen 325 Mg Tablet PO 650 mg Q4H PRN Administration Mild Pain (1-3) or Fever Amiodarone HCl 200 mg 11/27/24 08:00 11/27/24 08:31 Amiodarone Hcl 200 Mg Tablet PO 200 mg DAILY@0800 REBEKAH Administration Atorvastatin Calcium 40 mg 11/26/24 18:00 11/26/24 17:38 Atorvastatin 40 Mg Tablet PO 40 mg QPM REBEKAH Administration Dextrose 12.5 gm 11/26/24 09:41 Dextrose 50% 25 Gm/50 Ml Syringe IV PUSH PRN PRN Hypoglycemia Protocol Enoxaparin Sodium 40 mg 11/27/24 09:00 Enoxaparin 40 Mg/0.4 Ml Syringe SUB-Q DAILY REBEKAH Furosemide 40 mg 11/26/24 09:00 11/27/24 08:31 Furosemide Inj 40 Mg/4 Ml Vial IV PUSH 40 mg DAILY REBEKAH Administration Glucagon 1 mg 11/26/24 09:41 Glucagon For Inj 1 Mg Vial IM PRN PRN Hypoglycemia Protocol Glucose 15 gm 11/26/24 09:41 Glucose Oral Gel 15 Gm Of Glucse In 37.5 Gm Tube PO PRN PRN Hypoglycemia Protocol Guaifenesin 1,200 mg 11/26/24 09:00 11/27/24 08:32 Guaifenesin 12 Hr 600 Mg Tabcr PO 1,200 mg Q12HR REBEKAH Administration Ceftriaxone Sodium 1 gm in 50 mls @ 100 mls/hr 11/26/24 09:30 11/27/24 08:32 Rocephin 1 Gm/Ns 50 Ml IVPB 100 mls/hr DAILY REBEKAH Administration Doxycycline Hyclate 100 mg in 100 mls @ 100 mls/hr 11/26/24 09:30 11/27/24 09:04 Vibramycin 100 Mg/Ns 100 Ml IVPB 100 mls/hr Q12HR REBEKAH Administration Dextrose 1,000 mls @ 100 mls/hr 11/26/24 09:41 Dextrose 5% 1,000 Ml IVPB PRN PRN Hypoglycemia Protocol Insulin Glargine 12 units 11/26/24 21:00 11/26/24 21:55 Insulin Glargine (*Bkc) 100 Units/Ml 0.15 units/kg (12 units) Not Given SUB-Q HS REBEKAH Levothyroxine Sodium 150 mcg 11/26/24 06:30 11/27/24 06:29 Levothyroxine Sodium 150 Mcg Tablet PO 150 mcg DAILY@0630 REBEKAH Administration Pantoprazole Sodium 20 mg 11/26/24 21:00 11/26/24 20:34 Pantoprazole Sod Sesquihydrate 20 Mg Tab PO 20 mg HS REBEKAH Administration Potassium Chloride 20 meq 11/26/24 09:00 11/27/24 08:32 Potassium Chloride 20 Meq Er Tablet PO 20 meq BID REBEKAH Administration Spironolactone 12.5 mg 11/26/24 09:00 11/27/24 08:31 Spironolactone 12.5 Mg Tablet PO 12.5 mg DAILY REBEKAH Administration Radiology Results: ITS Impressions Chest X-Ray 11/25/24 20:43 IMPRESSION: Patchy bibasilar airspace disease may be secondary to infection or edema. Chest CTA 11/25/24 22:52 IMPRESSION: No CT evidence of acute pulmonary embolus. Bilateral lower lobe pneumonia. Mediastinal lymphadenopathy. Ascending aortic ectasia. Labs Labs: Laboratory Results - last 24 hr 11/26/24 11/26/24 11/27/24 16:30 21:44 05:53 Sodium 135 L Potassium 4.8 Chloride 104 Carbon Dioxide 23 Anion Gap 8 BUN 33 H Creatinine 1.74 H Estim Creat Clear Calc 26 Estimated GFR 37 L Glucose 128 H POC Capillary Glucose 126 H 165 H Hemoglobin A1c 6.9 H Calcium 8.4 Total Bilirubin 0.3 AST 37 ALT 38 Alkaline Phosphatase 86 Total Protein 6.6 Albumin 2.9 L 11/27/24 11/27/24 08:17 11:54 Sodium Potassium Chloride Carbon Dioxide Anion Gap BUN Creatinine Estim Creat Clear Calc Estimated GFR Glucose POC Capillary Glucose 132 H 158 H Hemoglobin A1c Calcium Total Bilirubin AST ALT Alkaline Phosphatase Total Protein Albumin Quality VTE Prophylaxis VTE prophylaxis: pharmacologic ordered
[2024-11-27 15:20] LABS: Hematocrit 31.4 % (42.0-52.0); Hemoglobin 9.7 g/dL (14.0-18.0); Mean Corpuscular HGB Conc 30.9 g/dl (32-36); Mean Corpuscular Hemoglobin 24.8 pg (26-34); Mean Corpuscular Volume 80.3 fl (80-100); Platelet Count Result 367 k/mm3 (150-375); Red Blood Count 3.91 M/mm3 (4.6-6.20); White Blood Count 11.7 K/mm3 (4.5-10.0)
[2024-11-27] MEDS: ATORVASTATIN 40 MG TABLET PO (16:40)
[2024-11-27] MEDS: PANTOPRAZOLE SOD SESQUIHYDRATE 20 MG TAB PO (21:15)
[2024-11-28] VITALS (11 sets, daily range): BP systolic 115–126; BP diastolic 57–66; PULSE 58–81; RESP 16–20; TEMP 36.1–36.7; O2SAT 92–100
--- NOTE | 2024-11-28 02:13 | PC.NURSE ---
On 11/28/24, ARSENIO Merlos, provided care and completed [facility] documentation on this patient with this nurse available for assistance. I have reviewed Chelita's documentation and agree with the findings.
[2024-11-28 05:56] LABS: Alanine Aminotransferase 34 U/L (6-50); Albumin Level 2.8 g/dL (3.5-5.1); Alkaline Phosphatase 84 U/L (38-126); Anion Gap 5 mmol/L (4-12); Aspartate Amino Transferase 35 U/L (17-59); Bilirubin,Total 0.2 mg/dL (0.2-1.3); Blood Urea Nitrogen 32 mg/dL (9-20); Calcium 8.5 mg/dL (8.4-10.2); Carbon Dioxide 23 mmol/L (22-30); Chloride 107 mmol/L (98-107); Estimated CRCL calculation 22 ml/min; Estimated Glomerular Filt Rate 31; Glucose 123 mg/dL (65-110); Potassium 5.1 mmol/L (3.4-5.0); Sodium 135 mmol/L (137-145); Total Protein 6.4 g/dL (6.3-8.2)
[2024-11-28] MEDS: LEVOTHYROXINE SODIUM 150 MCG TABLET PO (07:01)
[2024-11-28] MEDS: DOXYCYCLINE 100 MG/NS 100 ML 100 MG/100 ML BAG IVPB ×2 (10:01→21:43)
[2024-11-28] MEDS: guaiFENesin 12 HR 600 MG TABCR 1200 MG PO ×2 (10:02→21:44)
[2024-11-28] MEDS: FUROSEMIDE INJ 40 MG/4 ML VIAL IV PUSH (10:02)
[2024-11-28] MEDS: ENOXAPARIN 30 MG/0.3 ML SYRINGE SUB-Q (10:02)
[2024-11-28] MEDS: AMIODARONE HCL 200 MG TABLET PO (10:03)
--- NOTE | 2024-11-28 15:20 | P.PNIM_ITS ---
Progress Note: A&P Assessment and Plan (1) Acute on chronic heart failure: Code(s): I50.9 - Heart failure, unspecified Status: Acute Assessment and Plan: - Symptoms: shortness of breath, orthopnea, and slight lower extremity edema - Current medications: lasix 40 mg daily IV, continue home spironolactone 12.5 mg daily - BNP: 6860 - EKG: Paced. Prolonged QTc. - Chest XR showed patchy bibasilar airspace disease may be secondary to infection or edema. - Chest CTA showed no PE, bilateral lower lobe pneumonia, mediastinal lymphadenopathy, and ascending aortic ectasia. - Echo 06/12/23: LVEF 35-40% with grade I diastolic dysfunction - Repeat echo to reassess heart function - Monitor vital signs, I&Os, BUN/creatinine, daily weights, neuro status and patient is a fall risk - Monitor serum electrolytes, Keep serum Potassium>4 and serum Magnesium>2 and CBC (2) Pneumonia: Code(s): J18.9 - Pneumonia, unspecified organism Status: Acute Assessment and Plan: Chest XR showed patchy bibasilar airspace disease may be secondary to infection or edema. Chest CTA showed no PE, bilateral lower lobe pneumonia, mediastinal lymphadenopathy, and ascending aortic ectasia. - started on CAP tx: ceftriaxone and doxycycline (qtc prolonged) started on 11/25 - Viral PCR: negative for Flu/COVID/RSV. MRSA negative - consider ordering legionella, mycoplasma and pneumococcal - no supplemental O2 requirement - Monitor vital signs, I&Os, neuro status and patient is a fall risk - Follow WBC, serum electrolytes, temperature curves and cultures continue therapy added chest physiotherapy ambulate out of bed IS - will give IV antibiotics today and downgrade to PO tomorrow (3) DM2 (diabetes mellitus, type 2): Code(s): E11.9 - Type 2 diabetes mellitus without complications Status: Chronic Assessment and Plan: - hypoglycemia protocol - POC blood glucose ACHS - home medication - lantus 15 units HS - correct regimen ordered - lantus 12 units (20% decrease from home dose) - A1C ordered- hga1c 6.9 11/27/24 (4) Atrial fibrillation: Code(s): I48.91 - Unspecified atrial fibrillation Status: Chronic Assessment and Plan: - EKG: paced with prolonged qtc - Continue current home medication: amiodarone 200 mg daily. 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 Patient remains on tele. - Not anticoagulated - Patient is unsure who his water pollution scientist is (5) Hypertension: Code(s): I10 - Essential (primary) hypertension Status: Acute Assessment and Plan: Chronic - continue lasix 40 mg IV daily and spironolactone 12.5 mg daily - blood pressures remain stable, continue to monitor (6) Obstructive sleep apnea: Code(s): G47.33 - Obstructive sleep apnea (adult) (pediatric) Status: Chronic Assessment and Plan: Does not use CPAP. Time Spent With Patient Time with patient: 25 - 35 minutes Subjective Date/time seen: 11/28/24 15:20 Interval history: 84 year old male with past medical history of hypertension, type 2 diabetes mellitus, CKD, CAD, HTN, HLD, hypothyroidism, heart failure, and afib with pacemaker presents to the hospital from [facility] for shortness of breath. He developed an occasional productive cough with white phlegm about 2 weeks ago. He stated that the cough continued to worsen and he then developed shortness of breath about 3-4 days ago. He states that the shortness of breath was further exacerbated when lying down and with activity. He has been having increased difficulties with sleep and has been sleeping in his recliner. He has noticed slight lower extremity swelling as well. He has no other complaints denying fevers/chills/night sweats, chest pain, palpitations, nausea/vomiting, and abdominal pain. ED workup: CBC with WBC 14.3, H/H 10.4/34.4, PLT 379. CMP with Na 134, K 4.5. BUN/Cr 30/1.56 with GFR 42. Mag 2.3. LFT WNL. BNP 6860. D dimer 2.28. Viral panel negative. Chest XR showed patchy bibasilar airspace disease may be secondary to infection or edema. Chest CTA showed no PE, bilateral lower lobe p neumonia, mediastinal lymphadenopathy, and ascending aortic ectasia. Pt is seen and examined. He is in bed, reports cough and hard to expell secretions. no chest pain 7/3 - pt is up in a chair, feeling well today, breathing is better. Review of Systems Review of Systems: All systems reviewed & are unremarkable except as noted in HPI and below Exam Narrative: General: male in no acute respiratory distress who is nontoxic appearing, sitting up in bed HEENT: Normocephalic. Atraumatic. Extraocular movement intact. Sclera clear and anicteric. No facial asymmetry. Neck: Neck was supple. No dominant adenopathy, thyromegaly or masses. Chest: Lungs are diminished with crackles to auscultation to the bases bilaterally. No wheezes. CV: Heart was regular rate and rhythm. S1/S2. No murmurs, gallops, or rubs. Abd: Abdomen was soft. Nontender. Nondistended. Positive bowel sounds. Ext: No clubbing, cyanosis, or edema. 2+ DP pulses bilaterally. Neuro: Patient is alert and oriented x4. Strength is 5/5 in both upper and lower extremities. Speech is clear. Psych: Normal mood and affect. Patient is pleasant and cooperative. Skin: Warm and dry. No rashes noted. Objective Data Vital Signs Vital Signs: Vital Signs - 24 hr 11/27/24 16:00 11/27/24 20:00 11/27/24 20:00 Temperature Pulse Rate 60 66 Respiratory Rate Blood Pressure Pulse Oximetry Oxygen Delivery Room Air 11/27/24 21:17 11/28/24 00:00 11/28/24 04:00 Temperature 96.8 F L Pulse Rate 61 61 64 Respiratory Rate 20 Blood Pressure 124/58 L Pulse Oximetry 94 Oxygen Delivery 11/28/24 06:00 11/28/24 08:00 11/28/24 10:03 Temperature 97.0 F L Pulse Rate 58 L 60 64 Respiratory Rate 20 Blood Pressure 125/61 Pulse Oximetry 92 Oxygen Delivery Intake/Output Intake/Output: Intake & Output 11/25/24 11/26/24 11/27/24 11/28/24 23:59 23:59 23:59 23:59 Intake Total 1426 500 830 Output Total 500 0 225 Balance 926 500 605 Meds/Results Medications: Active Medications Generic Name Dose Route Start Last Admin Trade Name Freq PRN Reason Stop Dose Admin Acetaminophen 650 mg 11/25/24 23:38 11/27/24 08:31 Acetaminophen 325 Mg Tablet PO 650 mg Q4H PRN Administration Mild Pain (1-3) or Fever Amiodarone HCl 200 mg 11/27/24 08:00 11/28/24 10:03 Amiodarone Hcl 200 Mg Tablet PO 200 mg DAILY@0800 REBEKAH Administration Amoxicillin/Clavulanate Potassium 1 tablet 11/29/24 09:00 Amoxicillin/Clavulanate K 500-125 Mg Tab PO 12/02/24 09:01 Q12HR REBEKAH Atorvastatin Calcium 40 mg 11/26/24 18:00 11/27/24 16:40 Atorvastatin 40 Mg Tablet PO 40 mg QPM REBEKAH Administration Dextrose 12.5 gm 11/26/24 09:41 Dextrose 50% 25 Gm/50 Ml Syringe IV PUSH PRN PRN Hypoglycemia Protocol Doxycycline Hyclate 100 mg 11/29/24 09:00 Doxycycline Hyclate 100 Mg Tablet PO 11/30/24 09:01 Q12HR REBEKAH Enoxaparin Sodium 30 mg 11/28/24 09:00 11/28/24 10:02 Enoxaparin 30 Mg/0.3 Ml Syringe SUB-Q 30 mg DAILY REBEKAH Administration Furosemide 40 mg 11/26/24 09:00 11/28/24 10:02 Furosemide Inj 40 Mg/4 Ml Vial IV PUSH 40 mg DAILY REBEKAH Administration Glucagon 1 mg 11/26/24 09:41 Glucagon For Inj 1 Mg Vial IM PRN PRN Hypoglycemia Protocol Glucose 15 gm 11/26/24 09:41 Glucose Oral Gel 15 Gm Of Glucse In 37.5 Gm Tube PO PRN PRN Hypoglycemia Protocol Guaifenesin 1,200 mg 11/26/24 09:00 11/28/24 10:02 Guaifenesin 12 Hr 600 Mg Tabcr PO 1,200 mg Q12HR REBEKAH Administration Doxycycline Hyclate 100 mg in 100 mls @ 100 mls/hr 11/26/24 09:30 11/28/24 10:01 Vibramycin 100 Mg/Ns 100 Ml IVPB 11/28/24 21:59 100 mls/hr Q12HR REBEKAH Administration Dextrose 1,000 mls @ 100 mls/hr 11/26/24 09:41 Dextrose 5% 1,000 Ml IVPB PRN PRN Hypoglycemia Protocol Insulin Glargine 12 units 11/26/24 21:00 11/27/24 21:16 Insulin Glargine (*Bkc) 100 Units/Ml 0.15 units/kg (12 units) Not Given SUB-Q HS REBEKAH Levothyroxine Sodium 150 mcg 11/26/24 06:30 11/28/24 07:01 Levothyroxine Sodium 150 Mcg Tablet PO 150 mcg DAILY@0630 REBEKAH Administration Pantoprazole Sodium 20 mg 11/26/24 21:00 11/27/24 21:15 Pantoprazole Sod Sesquihydrate 20 Mg Tab PO 20 mg HS REBEKAH Administration Potassium Chloride 20 meq 11/26/24 09:00 11/28/24 10:02 Potassium Chloride 20 Meq Er Tablet PO Not Given BID REBEKAH Spironolactone 12.5 mg 11/26/24 09:00 11/28/24 10:02 Spironolactone 12.5 Mg Tablet PO 12.5 mg DAILY REBEKAH Administration Radiology Results: ITS Impressions Chest X-Ray 11/25/24 20:43 IMPRESSION: Patchy bibasilar airspace disease may be secondary to infection or edema. Chest CTA 11/25/24 22:52 IMPRESSION: No CT evidence of acute pulmonary embolus. Bilateral lower lobe pneumonia. Mediastinal lymphadenopathy. Ascending aortic ectasia. Labs Labs: Laboratory Results - last 24 hr 11/27/24 11/27/24 11/27/24 05:50 17:05 20:34 WBC 11.7 H RBC 3.91 L Hgb 9.7 L Hct 31.4 L MCV 80.3 MCH 24.8 L MCHC 30.9 L RDW 16.0 H Plt Count 367 MPV 9.3 Sodium Potassium Chloride Carbon Dioxide Anion Gap BUN Creatinine Estim Creat Clear Calc Estimated GFR Glucose POC Capillary Glucose 142 H 153 H Calcium Total Bilirubin AST ALT Alkaline Phosphatase Total Protein Albumin 11/28/24 11/28/24 11/28/24 05:37 08:17 12:03 WBC RBC Hgb Hct MCV MCH MCHC RDW Plt Count MPV Sodium 135 L Potassium 5.1 H Chloride 107 Carbon Dioxide 23 Anion Gap 5 BUN 32 H Creatinine 2.02 H Estim Creat Clear Calc 22 Estimated GFR 31 L Glucose 123 H POC Capillary Glucose 112 H 168 H Calcium 8.5 Total Bilirubin 0.2 AST 35 ALT 34 Alkaline Phosphatase 84 Total Protein 6.4 Albumin 2.8 L Quality VTE Prophylaxis VTE prophylaxis: pharmacologic ordered
[2024-11-28] MEDS: ATORVASTATIN 40 MG TABLET PO (17:45)
[2024-11-28 18:28] LABS: Hematocrit 31.3 % (42.0-52.0); Hemoglobin 9.7 g/dL (14.0-18.0); Mean Corpuscular HGB Conc 31.0 g/dl (32-36); Mean Corpuscular Hemoglobin 24.7 pg (26-34); Mean Corpuscular Volume 79.6 fl (80-100); Platelet Count Result 325 k/mm3 (150-375); Red Blood Count 3.93 M/mm3 (4.6-6.20); White Blood Count 10.7 K/mm3 (4.5-10.0)
[2024-11-28] MEDS: PANTOPRAZOLE SOD SESQUIHYDRATE 20 MG TAB PO (21:44)
[2024-11-29] VITALS (11 sets, daily range): BP systolic 99–118; BP diastolic 48–58; PULSE 62–85; RESP 16–18; TEMP 36–37.2; O2SAT 92–97
[2024-11-29 06:19] LABS: Hematocrit 30.4 % (42.0-52.0); Hemoglobin 9.0 g/dL (14.0-18.0); Mean Corpuscular HGB Conc 29.6 g/dl (32-36); Mean Corpuscular Hemoglobin 23.6 pg (26-34); Mean Corpuscular Volume 79.8 fl (80-100); Platelet Count Result 361 k/mm3 (150-375); Red Blood Count 3.81 M/mm3 (4.6-6.20); White Blood Count 10.2 K/mm3 (4.5-10.0)
[2024-11-29] MEDS: LEVOTHYROXINE SODIUM 150 MCG TABLET PO (06:21)
[2024-11-29 06:39] LABS: Alanine Aminotransferase 29 U/L (6-50); Albumin Level 2.8 g/dL (3.5-5.1); Alkaline Phosphatase 75 U/L (38-126); Anion Gap 7 mmol/L (4-12); Aspartate Amino Transferase 30 U/L (17-59); Bilirubin,Total 0.2 mg/dL (0.2-1.3); Blood Urea Nitrogen 32 mg/dL (9-20); Calcium 8.5 mg/dL (8.4-10.2); Carbon Dioxide 21 mmol/L (22-30); Chloride 106 mmol/L (98-107); Estimated CRCL calculation 22 ml/min; Estimated Glomerular Filt Rate 31; Glucose 106 mg/dL (65-110); Potassium 4.6 mmol/L (3.4-5.0); Sodium 134 mmol/L (137-145); Total Protein 6.4 g/dL (6.3-8.2)
[2024-11-29] MEDS: guaiFENesin 12 HR 600 MG TABCR 1200 MG PO ×2 (09:35→21:23)
[2024-11-29] MEDS: FUROSEMIDE INJ 40 MG/4 ML VIAL IV PUSH (09:35)
[2024-11-29] MEDS: POTASSIUM CHLORIDE 20 MEQ ER TABLET PO ×2 (09:35→16:25)
[2024-11-29] MEDS: AMIODARONE HCL 200 MG TABLET PO (09:36)
[2024-11-29] MEDS: DOXYCYCLINE HYCLATE 100 MG TABLET PO ×2 (09:36→21:23)
[2024-11-29] MEDS: ENOXAPARIN 30 MG/0.3 ML SYRINGE SUB-Q (09:40)
[2024-11-29] MEDS: ATORVASTATIN 40 MG TABLET PO (16:59)
[2024-11-29 17:36] LABS: Hematocrit 30.4 % (42.0-52.0); Hemoglobin 9.2 g/dL (14.0-18.0); Mean Corpuscular HGB Conc 30.3 g/dl (32-36); Mean Corpuscular Hemoglobin 24.3 pg (26-34); Mean Corpuscular Volume 80.2 fl (80-100); Platelet Count Result 373 k/mm3 (150-375); Red Blood Count 3.79 M/mm3 (4.6-6.20); White Blood Count 9.9 K/mm3 (4.5-10.0)
[2024-11-29] MEDS: PANTOPRAZOLE SOD SESQUIHYDRATE 20 MG TAB PO (21:24)
[2024-11-30] VITALS (7 sets, daily range): BP systolic 118; BP diastolic 70; PULSE 60–66; RESP 17; TEMP 37.2; O2SAT 95–96
[2024-11-30] MEDS: LEVOTHYROXINE SODIUM 150 MCG TABLET PO (05:36)
[2024-11-30 06:28] LABS: Alanine Aminotransferase 31 U/L (6-50); Albumin Level 3.0 g/dL (3.5-5.1); Alkaline Phosphatase 79 U/L (38-126); Anion Gap 7 mmol/L (4-12); Aspartate Amino Transferase 36 U/L (17-59); Bilirubin,Total 0.3 mg/dL (0.2-1.3); Blood Urea Nitrogen 36 mg/dL (9-20); Calcium 8.6 mg/dL (8.4-10.2); Carbon Dioxide 21 mmol/L (22-30); Chloride 107 mmol/L (98-107); Estimated CRCL calculation 23 ml/min; Estimated Glomerular Filt Rate 33; Glucose 115 mg/dL (65-110); Potassium 5.0 mmol/L (3.4-5.0); Sodium 135 mmol/L (137-145); Total Protein 6.7 g/dL (6.3-8.2)
[2024-11-30] MEDS: guaiFENesin 12 HR 600 MG TABCR 1200 MG PO (08:49)
[2024-11-30] MEDS: ENOXAPARIN 30 MG/0.3 ML SYRINGE SUB-Q (08:50)
[2024-11-30] MEDS: DOXYCYCLINE HYCLATE 100 MG TABLET PO (08:50)
[2024-11-30] MEDS: FUROSEMIDE 40 MG TABLET PO (08:50)
[2024-11-30] MEDS: POTASSIUM CHLORIDE 20 MEQ ER TABLET PO (08:51)
[2024-11-30] MEDS: AMIODARONE HCL 200 MG TABLET PO (09:06)
--- NOTE | 2024-11-30 10:58 | PM.DS ---
DS: Admitting Diagnosis Discharge Date 11/30 Admitting Diagnosis pneumonia DS: Discharge Diagnosis Discharge Diagnosis (1) Acute on chronic heart failure: Code(s): I50.9 - Heart failure, unspecified Status: Acute (2) Pneumonia: Code(s): J18.9 - Pneumonia, unspecified organism Status: Acute (3) DM2 (diabetes mellitus, type 2): Code(s): E11.9 - Type 2 diabetes mellitus without complications Status: Chronic Assessment and Plan: - hypoglycemia protocol - POC blood glucose ACHS - home medication - lantus 15 units HS - correct regimen ordered - lantus 12 units (20% decrease from home dose) - A1C ordered- hga1c 6.9 11/27/24 (4) Atrial fibrillation: Code(s): I48.91 - Unspecified atrial fibrillation Status: Chronic Assessment and Plan: - EKG: paced with prolonged qtc - Continue current home medication: amiodarone 200 mg daily. Given prolonged qtc discussed starting this with cardiology [employer] okay to start at this time. Patient remains on tele. 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 DS: Summary Hospital Course Hospital Course: 84 year old male with past medical history of hypertension, type 2 diabetes mellitus, CKD, CAD, HTN, HLD, hypothyroidism, heart failure, and afib with pacemaker presents to the hospital from [facility] for shortness of breath. He developed an occasional productive cough with white phlegm about 2 weeks ago. He stated that the cough continued to worsen and he then developed shortness of breath about 3-4 days ago. He states that the shortness of breath was further exacerbated when lying down and with activity. He has been having increased difficulties with sleep and has been sleeping in his recliner. He has noticed slight lower extremity swelling as well. He has no other complaints denying fevers/chills/night sweats, chest pain, palpitations, nausea/vomiting, and abdominal pain. ED workup: CBC with WBC 14.3, H/H 10.4/34.4, PLT 379. CMP with Na 134, K 4.5. BUN/Cr 30/1.56 with GFR 42. Mag 2.3. LFT WNL. BNP 6860. D dimer 2.28. Viral panel negative. Chest XR showed patchy bibasilar airspace disease may be secondary to infection or edema. Chest CTA showed no PE, bilateral lower lobe pneumonia, mediastinal lymphadenopathy, and ascending aortic ectasia. # chf - Symptoms: shortness of breath, orthopnea, and slight lower extremity edema - Current medications: lasix 40 mg daily IV, continue home spironolactone 12.5 mg daily - BNP: 6860 - EKG: Paced. Prolonged QTc. - Chest XR showed patchy bibasilar airspace disease may be secondary to infection or edema. - Chest CTA showed no PE, bilateral lower lobe pneumonia, mediastinal lymphadenopathy, and ascending aortic ectasia. - Echo 06/12/23: LVEF 35-40% with grade I diastolic dysfunction - Repeat echo to reassess heart function - Monitor vital signs, I&Os, BUN/creatinine, daily weights, neuro status and patient is a fall risk - Monitor serum electrolytes, Keep serum Potassium>4 and serum Magnesium>2 and CBC -OF NOTE-K WAS 5.1- SO SPIRONOLACTONE WAS HELD, NEXT DAY IT WAS 4.6. SO MEDICATION WAS RESTARTED AND K INCREASED TO 5 AGAIN. WILL HOLD SPIRONOLACTONE AND ORDER REPEAT CMP WITHIN 1 WEEK. PLEASE ADDRESS THE NEED TO RESTARTED SPIRONOLACTONE WITH PCP OR UPPER CUTTER OUT. # PNEUMONIA Chest XR showed patchy bibasilar airspace disease may be secondary to infection or edema. Chest CTA showed no PE, bilateral lower lobe pneumonia, mediastinal lymphadenopathy, and ascending aortic ectasia. - started on CAP tx: ceftriaxone and doxycycline (qtc prolonged) started on 11/25 - Viral PCR: negative for Flu/COVID/RSV. MRSA negative - consider ordering legionella, mycoplasma and pneumococcal - no supplemental O2 requirement - Monitor vital signs, I&Os, neuro status and patient is a fall risk - Follow WBC, serum electrolytes, temperature curves and cultures added chest physiotherapy Pt is finished with doxycycline and still has 4 more doses of augmentin to complete the whole course # afib - EKG: paced with prolonged qtc - Continue current home medication: amiodarone 200 mg daily. Given prolonged qtc discussed starting this with cardiology [employer] okay to start at this time. Patient remains on tele. - Not anticoagulated- aware of risks/benefits will defer the treatment decision for pt and this mold release worker Status at Discharge Functional status at discharge: uses cane/walker Overall status at discharge: patient is progressing back to baseline Time Spent with Patient Time attestation: Total time spent providing and/or coordinating discharge services: Time spent: Greater than 30 minutes Exam Narrative: General: male in no acute respiratory distress who is nontoxic appearing, sitting up in chair HEENT: Normocephalic. Atraumatic. Extraocular movement intact. Sclera clear and anicteric. No facial asymmetry. Neck: Neck was supple. No dominant adenopathy, thyromegaly or masses. Chest: Lungs are diminished with crackles to auscultation to the bases bilaterally. No wheezes. CV: Heart was regular rate and rhythm. S1/S2. No murmurs, gallops, or rubs. Abd: Abdomen was soft. Nontender. Nondistended. Positive bowel sounds. Ext: No clubbing, cyanosis, or edema. 2+ DP pulses bilaterally. Neuro: Patient is alert and oriented x4. Strength is 5/5 in both upper and lower extremities. Speech is clear. Psych: Normal mood and affect. Patient is pleasant and cooperative. Skin: Warm and dry. No rashes noted. Const: General: comfortable DS: Data Data Completed and Pending Labs on day of discharge: Labs from last 24 hours 11/30/24 11/30/24 11/29/24 08:06 05:49 20:12 WBC RBC Hgb Hct MCV MCH MCHC RDW Plt Count MPV Sodium 135 L Potassium 5.0 Chloride 107 Carbon Dioxide 21 L Anion Gap 7 BUN 36 H Creatinine 1.95 H Estim Creat Clear Calc 23 Estimated GFR 33 L Glucose 115 H POC Capillary Glucose 108 H 148 H Calcium 8.6 Total Bilirubin 0.3 AST 36 ALT 31 Alkaline Phosphatase 79 Total Protein 6.7 Albumin 3.0 L 07/04/25 07/04/25 07/04/25 17:11 16:49 11:25 WBC 9.9 RBC 3.79 L Hgb 9.2 L Hct 30.4 L MCV 80.2 MCH 24.3 L MCHC 30.3 L RDW 16.1 H Plt Count 373 MPV 9.3 Sodium Potassium Chloride Carbon Dioxide Anion Gap BUN Creatinine Estim Creat Clear Calc Estimated GFR Glucose POC Capillary Glucose 131 H 176 H Calcium Total Bilirubin AST ALT Alkaline Phosphatase Total Protein Albumin Preliminary micro results at discharge 11/25/24 23:53 Blood Culture - Preliminary Blood 11/25/24 23:51 Blood Culture - Preliminary Blood Discharge Plan Discharge Attending physician on discharge: Chinedu Casanova Consulting providers: Randy Lam Discharging Clinician: Yvonne Alejandro Patient Disposition: [facility] Activity: september shower Diet: heart healthy Discharge Instructions: You were admitted for pneumonia. You completed the course of one antibiotic and still have 2 more days for another- 4 more doses of Augmentin. take as instructed, next dose 7/6 pm dose. We were holding your spironolactone because you potassium level was high. Please have lab rechecked within few days after discharge to ensure potassium level is normal and reach out to your mold release worker to see if they want you on spironolactone or not. Patient Instructions: Antibiotic Form Patient Language: Occitan Stand Alone Forms: General Discharge Information Discharge Medications: New amoxicillin-pot clavulanate [Augmentin] 500-125 mg Tablet 1 tablet PO Q12HR Qty: 4 0RF Continued acetaminophen 325 mg tablet 650 mg PO Q6H PRN (Reason: fever or pain) prochlorperazine maleate [Compazine] 10 mg tablet 10 mg PO Q6H PRN (Reason: nausea and vomiting) glucagon HCl [Glucagon (HCl) Emergency Kit] 1 mg recon soln 1 mg subcut ONCE PRN (Reason: hypoglycemia) loratadine 10 mg capsule 10 mg PO DAILY pantoprazole 20 mg tablet,delayed release (DR/EC) 20 mg PO HS Saline Mist 0.65 % aerosol,spray 2 spray intranasal Q2H PRN (Reason: nasal congestion) vitamin T93-adgak acid 1,000-400 mcg tablet, sublingual 1 tablet sublingual DAILY furosemide 40 mg tablet 40 mg PO DAILY atorvastatin 40 mg tablet 40 mg PO QPM amiodarone 200 mg tablet 200 mg PO DAILY insulin glargine [Basaglar KwikPen U-100 Insulin] 100 unit/mL (3 mL) insulin pen 15 unit SUBCUT HS guaifenesin 600 mg Tablet Extended Release 12hr 1,200 mg PO BID levothyroxine [Synthroid] 150 mcg Tablet 150 mcg PO DAILY@0630 Qty: 30 0RF Held spironolactone [Aldactone] 25 mg tablet 12.5 mg PO DAILY Hold Instructions: Resume on 12/05/24. hold until instructed otherwise per pcp or mold release worker potassium chloride 20 mEq tablet,ER particles/crystals 20 meq PO BID Hold Instructions: Resume on 12/05/24. hold until instructed otherwise per pcp or mold release worker Date of admission: 11/26/24 09:14 Primary Care Provider: PHYSICIAN,ROBOTIC MACHINE OPERATOR Admitting Provider: Shahram Masterson Attending physician on admission: Lidia Gutierrez Condition: Stable Quality VTE Prophylaxis VTE prophylaxis: pharmacologic ordered Hospitalist MIPS Heart Failure (Exclusion) Patient has history of Heart Transplant or Left Ventricular Assistive Device?: No IF YES, STOP HERE Heart Failure (Qualifier) Patient has current or prior documentation of LVEF less than or equal to 40%, or mod/servere depressed LVSF?: No IF NO, STOP HERE
== END 2024-11-30 14:00 | DRG 291 ==
LOC: ANHED 23:41 → ANH3MEDSUR 11-26 00:19
PROVIDERS: Student in an Organized Health Care Education/Training Program; Admitting Provider Internal Medicine; Emergency Provider Student in an Organized Health Care Education/Training Program; Visit Provider Nurse Practitioner
DX: I13.0 Hypertensive heart and chronic kidney disease with heart failure and stage 1 through stage 4 chronic kidney disease, or unspecified chronic kidney disease (principal); J18.9 Pneumonia, unspecified organism; N18.4 Chronic kidney disease, stage 4 (severe); I48.20 Chronic atrial fibrillation, unspecified; I42.2 Other hypertrophic cardiomyopathy; I50.9 Heart failure, unspecified; D50.9 Iron deficiency anemia, unspecified; E11.22 Type 2 diabetes mellitus with diabetic chronic kidney disease; I77.810 Thoracic aortic ectasia; G47.33 Obstructive sleep apnea (adult) (pediatric); E03.9 Hypothyroidism, unspecified; I25.10 Atherosclerotic heart disease of native coronary artery without angina pectoris; Z66 Do not resuscitate; Z90.49 Acquired absence of other specified parts of digestive tract; Z85.048 Personal history of other malignant neoplasm of rectum, rectosigmoid junction, and anus; Z87.891 Personal history of nicotine dependence; Z96.89 Presence of other specified functional implants
CPT/HCPCS: 36415; 71046; 71275; 80053; 82948; 83036; 83735; 83880; 85025; 85027; 85380; 87040; 87637; 93005; 94667; 94668; 94669; 96365; 97110; 97161; 97165; 97530; 97535; 99285; A9270; C8929; G0378; J0696; J1650; J1938; Q9957; Q9967